=== PATIENT | female | born 1950 | race African-American/Black ===

== ENCOUNTER 2020-03-05 11:07 | Inpatient (IN) | payer OTHER ==
--- NOTE | 2020-03-05 11:50 | PDOC ---
History of Present Illness - General Chief Complaint: Shortness of Breath Stated Complaint: HYPOXIA Time Seen by Provider: 03/05/20 11:45 - History of Present Illness Initial Comments: 03/05/20 11:50 69yo F smoker p/w LLE swelling [id number] and hypoxia at her PCP's office today. Pt reports three weeks ago she noticed that her LLE was swollen and painful when touched. She states the swelling remained unchanged x3wks. She went to her PCP's office today and was found to be hypoxic on room air. The low SpO2 + the LLE swelling prompted the PCP (Timothy Bolivar MD) to send pt to ED after giving 150mg Lovenox + performing a 12 lead. Denies hemoptysis, paresthesia in the leg, denies pallor of the extremity. Denies CP but endorses some SOB. She denies recent travel. She denies a h/o blood clots, recent fevers, sore throat, or cough. NKDA. Meds: albuterol, apixaban, atorvastatin, budesonide-formoterol, lasix, losartan + HCTZ, montelukast No history of this before PMH: COPD, HTN, HLD, PVD. She states two years ago she fell and her left leg "has not been the same." To this she denies any fx or surgery PSH: denies FHx: pt did not remember SHx: 50pack-year smoker. Actively smokes 4-5cigs/day. Denies EtOH or illicit drugs. Sits at home for most of the day. ROS CONSTITUTIONAL: Absent: fever, no chills, no fatigue EYES: Absent: visual changes ENT: Absent: ear pain, no sore throat CARDIOVASCULAR: Absent: chest pain, no palpitations RESPIRATORY: Absent: cough, + SOB GI: Absent: abdominal pain, no nausea, no vomiting, no constipation, no diarrhea GENITOURINARY: Absent: dysuria, no frequency, no hematuria MUSKULOSKELETAL: Absent: back pain, no arthralgia, no myalgia SKIN: Absent: rash NEURO: Absent: headache PE: GENERAL: well-nourished, NAD, A/O x3 HEENT: Normocephalic, atraumatic. PERRL, EOM intact. CARDIOVASCULAR: Normal S1, S2. 2/6 Systolic murmur. Regular rate and rhythm. +1 carotid bruit L>R, +1 JVD b/l 2+ radial pulses b/l unable to palpate dorsalis pedis or posterior tib pulses b/l. PULMONARY: No evidence of respiratory distress. Lungs clear to auscultation bilaterally but sounds are decreased on both sides. No wheezing, rales or rhonchi. ABDOMEN: Soft, non-distended, non-tender. EXTREMITIES: Normal ROM in all four extremities. No gross deformities. +1 pitting edema of lower extremities up to the point of the soleus. Pain to palpation of the LLE around the calf muscle, including the anterior aspect of the LLE. It is not cold. Sensation is intact. Right calf is swollen. SKIN: Warm, dry. No rash. Some discoloration resembling venous stasis below the calves. NEUROLOGICAL: No focal neurological deficits. 69yo F w/ unilateral calf swelling on L + hypoxia at her PCPs office today [facility] for [facility]. Plan: CTA, CMP, CBC, CXR, serial troponin, EKG Admit to Dr. Barnes. During her stay in the ED I found her sleeping in her room. Her SpO2 was 71% with good waveform. We woke her up, put her on 15L O2 NRB and instructed her to breathe. She was A/Ox3 and her O2 increased to 100%. I spoke with Dr. Barnes, who asked me to admit pt to her and give Lasix 20mg IVPush while in the ED. 03/05/20 16:57 03/05/20 17:10 Past History - Medical History Allergies/Adverse Reactions: Allergies Allergy/AdvReac Type Severity Reaction Status Date / Time No Known Drug Allergies Allergy Verified 03/05/20 11:10 TOMATOES Allergy Uncoded 03/05/20 11:10 Home Medications: Ambulatory Orders Albuterol Sulfate Inhaler - [Ventolin HFA Inhaler -] 1 - 2 inh PO PRN 11/29/14 Apixaban [Eliquis -] 5 mg PO BID 03/05/20 Atorvastatin Ca [Lipitor] 80 mg PO HS 03/05/20 Budesonide/Formoterol Fumarate [Budesonide-Formoterol 80-4.5] 2 puff IH BID 03/05/20 Furosemide [Lasix] 20 mg PO DAILY 03/05/20 Losartan/Hydrochlorothiazide [Losartan-Hctz 100-12.5 mg Tab] 1 each PO DAILY 03/05/20 Montelukast Na [Singulair -] 10 mg PO HS 03/05/20 Anemia: No Asthma: Yes Cancer: No Cardiac Disorders: Yes (;ANGIOPLASTY LLE) CVA: No COPD: No CHF: No Dementia: No Diabetes: No GI Disorders: No Disorders: No HTN: Yes Hypercholesterolemia: Yes Liver Disease: No Seizures: No Thyroid Disease: No - Surgical History Appendectomy: Yes Cholecystectomy: No Orthopedic Surgery: Yes (ARTHROSCOPY BILAT KNEE) - Psycho-Social/Smoking History Smoking History: Never smoked Have you smoked in the past 12 months: Yes Number of Cigarettes Smoked Daily: 4 'Breaking Loose' booklet given: 12/01/15 - Substance Abuse Hx (Audit-C & DAST Scrn) How often the patient has a drink containing alcohol: Never Score: In Men: 4 or > Positive; In Women: 3 or > Positive: 0 Screen Result (Pos requires Nsg. Audit-10AR): Negative In the last yr the pt used illegal drug/Rx for NonMed reason: No Score: Yes response is considered Positive: 0 Screen Result (Positive result requires Nsg. DAST-10): Negative *Physical Exam - Vital Signs Last Vital Signs Temp Pulse Resp BP Pulse Ox 81 18 206/73 H 100 03/05/20 11:11 03/05/20 11:11 03/05/20 11:11 03/05/20 11:11 ED Treatment Course - LABORATORY CBC & Chemistry Diagram: 03/05/20 11:50 03/05/20 11:50 Discharge - Discharge Information Problems reviewed: Yes Clinical Impression/Diagnosis: Elevated troponin, Hypoxia Heart failure Qualifiers: Heart failure type: unspecified Heart failure chronicity: unspecified Qualified Code(s): I50.9 - Heart failure, unspecified Condition: Fair - Admission Yes - Follow up/Referral Referrals: Gertrude Gutierrez [Primary Care Provider] - - Patient Discharge Instructions - Post Discharge Activity
[2020-03-05 12:09] LABS: BASO % 0.3 % (0-2.0); EOS % 0.9 % (0-4.5); HEMATOCRIT 40.6 % (32.4-45.2); HEMOGLOBIN 13.2 GM/dL (10.7-15.3); LYMPH % 21.9 % (8-40); MCH 28.1 pg (25.7-33.7); MCHC 32.4 g/dl (32.0-36.0); MEAN CELL VOLUME 86.8 fl (80-96); MEAN PLT VOLUME 6.5 fl (7.5-11.1); MONO % 9.3 % (3.8-10.2); NEUT % 67.6 % (42.8-82.8); PLATELET COUNT 224 K/MM3 (134-434); RBC 4.68 M/mm3 (3.60-5.2); RDW 14.7 % (11.6-15.6); WHITE BLOOD COUNT 8.7 K/mm3 (4.0-10.0)
[2020-03-05 12:43] LABS: ALBUMIN 3.6 g/dl (3.4-5.0); BILIRUBIN,TOTAL 0.6 mg/dL (0.2-1); BLOOD UREA NITROGEN 8.8 mg/dL (7-18); CALCIUM 8.9 mg/dL (8.5-10.1); CREATININE 0.6 mg/dL (0.55-1.3); N-TERMINAL BNP 2985.8 pg/ml (5-125); POTASSIUM 4.2 mmol/L (3.5-5.1); TOT PROT 7.2 g/dl (6.4-8.2)
[2020-03-05] MEDS ORDERED: FUROSEMIDE 40 MG/4 ML INJECTABLE VIAL IVPUSH ONE (16:55)
[2020-03-05 17:00] LABS: N-TERMINAL BNP 2894.1 pg/ml (5-125)
[2020-03-05] MEDS ORDERED: FUROSEMIDE 40 MG/4 ML INJECTABLE VIAL ONE (17:00)
--- NOTE | 2020-03-05 22:53 | HP ---
Admitting History and Physical - Admission History of Present Illness: Pt is a 69 year old female with pmhx of htn, asthma, hld, COPDwho presented with shortness of breath and lower ext edema. She says she had shortness of breath on exertion. She denies chest pain. She was found to be hyponatremia and I was called to evaluate her. She felt better with lasix. She feels her edema and breathing are improving. She is an active smoker. She denies history of ckd. She was also on a thiazide. - Past Medical History Cardiovascular: Yes: HTN, Hyperlipdemia Pulmonary: Yes: Asthma, COPD Heme/Onc: Yes: Other (DVT) - Smoking History Smoking history: Never smoked Have you smoked in the past 12 months: Yes Aproximately how many cigarettes per day: 4 - Alcohol/Substance Use Hx Alcohol Use: Yes (SOCIALLY) Home Medications - Allergies Allergies/Adverse Reactions: Allergies Allergy/AdvReac Type Severity Reaction Status Date / Time No Known Drug Allergies Allergy Verified 03/05/20 11:10 TOMATOES Allergy Uncoded 03/05/20 11:10 - Home Medications Home Medications: Ambulatory Orders Albuterol Sulfate Inhaler - [Ventolin HFA Inhaler -] 1 - 2 inh PO PRN 11/29/14 Apixaban [Eliquis -] 5 mg PO BID 03/05/20 Atorvastatin Ca [Lipitor] 80 mg PO HS 03/05/20 Budesonide/Formoterol Fumarate [Budesonide-Formoterol 80-4.5] 2 puff IH BID 03/05/20 Furosemide [Lasix] 20 mg PO DAILY 03/05/20 Losartan/Hydrochlorothiazide [Losartan-Hctz 100-12.5 mg Tab] 1 each PO DAILY 03/05/20 Montelukast Na [Singulair -] 10 mg PO HS 03/05/20 Family Medical History Family History: Unremarkable Review of Systems - Review of Systems Constitutional: reports: No Symptoms Eyes: reports: No Symptoms HENT: reports: No Symptoms Neck: reports: No Symptoms Cardiovascular: reports: Shortness of Breath Respiratory: reports: SOB Physical Examination Vital Signs: Vital Signs Temperature 98.5 F 03/05/20 15:17 Pulse Rate 87 03/05/20 19:15 Respiratory Rate 24 H 03/05/20 19:15 Blood Pressure 193/54 H 03/05/20 19:15 O2 Sat by Pulse Oximetry (%) 100 03/05/20 19:15 Labs: CBC, BMP 03/05/20 11:50 03/05/20 11:50 Problem List - Problems (1) Hypoxia Assessment/Plan: Cardiac vs pulmonary Check echo Cont IV lasix Code(s): R09.02 - HYPOXEMIA (2) Elevated troponin Assessment/Plan: Cont to trend troponin Check echo Code(s): R79.89 - OTHER SPECIFIED ABNORMAL FINDINGS OF BLOOD CHEMISTRY (3) HTN (hypertension) Code(s): I10 - ESSENTIAL (PRIMARY) HYPERTENSION (4) Hyponatremia Code(s): E87.1 - HYPO-OSMOLALITY AND HYPONATREMIA (5) HLD (hyperlipidemia) Code(s): E78.5 - HYPERLIPIDEMIA, UNSPECIFIED (6) DVT (deep venous thrombosis) Assessment/Plan: ?Will continue Eliquis and check h/o DVT LLE doppler was negative for DVT Code(s): I82.409 - ACUTE EMBOLISM AND THOMBOS UNSP DEEP VN UNSP LOWER EXTREMITY
[2020-03-05] MEDS ORDERED: ALBUTEROL SO4 2.5/IPRATROPIUM 0.5 INH SOL 3 ML VIAL.NEB. NEB PRN (22:54)
[2020-03-05] MEDS ORDERED: amLODIPine BESYLATE 5 MG TABLET (FP) ONE (23:02)
[2020-03-05] MEDS: APIXABAN 5 MG TABLET PO SCH (23:11)
[2020-03-05] MEDS: amLODIPine BESYLATE 5 MG TABLET (FP) PO SCH (23:11)
[2020-03-06 06:37] VITALS: BMI 27.8
--- NOTE | 2020-03-06 06:56 | CONSULT ---
Consult Consult Specialty:: Nephrology Reason for Consultation:: hyponatremia - History of Present Illness Chief Complaint: sent in for shortness of breath History of Present Illness: Pt is a 69 year old female with pmhx of htn, asthma, hld who presented with shortness of breath and lower ext edema. She says she had shortness of breath on exertion. She denies chest pain. She was found to be hyponatremic and I was called to evaluate her. She felt better with lasix. She feels her edema and breathing are improving. She is an active smoker. She denies history of ckd. She was also on a thiazide. - History Source History Provided By: Patient, Medical Record - Past Medical History Cardio/Vascular: Yes: HTN - Alcohol/Substance Use Hx Alcohol Use: Yes (SOCIALLY) - Smoking History Smoking history: Former smoker Have you smoked in the past 12 months: Yes Aproximately how many cigarettes per day: 4 Home Medications - Allergies Allergies/Adverse Reactions: Allergies Allergy/AdvReac Type Severity Reaction Status Date / Time No Known Drug Allergies Allergy Verified 03/05/20 11:10 TOMATOES Allergy Uncoded 03/05/20 11:10 - Home Medications Home Medications: Ambulatory Orders Albuterol Sulfate Inhaler - [Ventolin HFA Inhaler -] 1 - 2 inh PO PRN 11/29/14 Apixaban [Eliquis -] 5 mg PO BID 03/05/20 Atorvastatin Ca [Lipitor] 80 mg PO HS 03/05/20 Budesonide/Formoterol Fumarate [Budesonide-Formoterol 80-4.5] 2 puff IH BID 03/05/20 Furosemide [Lasix] 20 mg PO DAILY 03/05/20 Losartan/Hydrochlorothiazide [Losartan-Hctz 100-12.5 mg Tab] 1 each PO DAILY 03/05/20 Montelukast Na [Singulair -] 10 mg PO HS 03/05/20 Family Medical History Family History: Denies Review of Systems - Review of Systems Constitutional: reports: Malaise Eyes: reports: No Symptoms HENT: reports: No Symptoms Neck: reports: No Symptoms Cardiovascular: reports: Edema, Shortness of Breath Respiratory: reports: No Symptoms Gastrointestinal: reports: No Symptoms Genitourinary: reports: No Symptoms Musculoskeletal: reports: No Symptoms Integumentary: reports: No Symptoms Neurological: reports: No Symptoms Endocrine: reports: No Symptoms Hematology/Lymphatic: reports: No Symptoms Psychiatric: reports: No Symptoms Physical Exam Vital Signs: Vital Signs Temperature 97.9 F 03/06/20 06:25 Pulse Rate 75 03/06/20 06:41 Respiratory Rate 18 03/06/20 06:25 Blood Pressure 159/57 L 03/06/20 06:25 O2 Sat by Pulse Oximetry (%) 97 03/06/20 06:25 Constitutional: Yes: Calm Eyes: Yes: Conjunctiva Clear HENT: Yes: Atraumatic Neck: Yes: Supple Cardiovascular: Yes: S1, S2 Respiratory: Yes: On Nasal O2 Gastrointestinal: Yes: Soft Renal/: Yes: WNL Musculoskeletal: Yes: WNL Edema: Yes Edema: LLE: 1+, RLE: 1+ Neurological: Yes: Oriented Psychiatric: Yes: Oriented Imaging - Results Chest X-ray: Report Reviewed Cat Scan: Report Reviewed Problem List - Problems (1) Hyponatremia Code(s): E87.1 - HYPO-OSMOLALITY AND HYPONATREMIA (2) Heart failure Code(s): I50.9 - HEART FAILURE, UNSPECIFIED Qualifiers: Heart failure type: unspecified Heart failure chronicity: unspecified Qualified Code(s): I50.9 - Heart failure, unspecified Assessment/Plan Current Medications Generic Name Dose Route Start Last Admin Trade Name Freq PRN Reason Stop Dose Admin Albuterol/Ipratropium 1 amp 03/05/20 22:54 Duoneb - NEB Q6H PRN SHORTNESS OF BREATH Amlodipine Besylate 5 mg 03/05/20 22:53 03/05/20 23:11 Norvasc - PO 5 mg DAILY RODGER Administration Apixaban 5 mg 03/05/20 22:45 03/05/20 23:11 Eliquis - PO 5 mg BID RODGER Administration Atorvastatin Calcium 80 mg 03/06/20 22:00 Lipitor - PO HS RODGER Budesonide/Formoterol Fumarate 2 puff 03/06/20 10:00 Symbicort 80/4.5mcg - IH BID RODGER Furosemide 40 mg 03/06/20 10:00 Lasix Injection - IVPUSH DAILY RODGER Montelukast Sodium 10 mg 03/06/20 22:00 Singulair - PO HS RODGER Impression 1. hyponatremia 2. chf 3. asthma 4. htn 5. smoker 6. hld Plan - cont lasix - hypervolemic hyponatremia - restrict free water - do not restart thiazide - cont to monitor lytes - check plasma and urine osm, check urine sodium - hyponatremia likely a combination of thiazide and chf
[2020-03-06 07:07] LABS: BASO % 0.8 % (0-2.0); EOS % 1.3 % (0-4.5); HEMATOCRIT 40.2 % (32.4-45.2); LYMPH % 23.8 % (8-40); MCH 28.1 pg (25.7-33.7); MCHC 32.3 g/dl (32.0-36.0); MEAN CELL VOLUME 87.1 fl (80-96); MEAN PLT VOLUME 6.8 fl (7.5-11.1); MONO % 10.3 % (3.8-10.2); NEUT % 63.8 % (42.8-82.8); PLATELET COUNT 202 K/MM3 (134-434); RBC 4.62 M/mm3 (3.60-5.2)
--- NOTE | 2020-03-06 07:16 | CON.CARD ---
Consult Consult Specialty:: Cardiology - History of Present Illness History of Present Illness: The patient is a 69 year old female with a significant past medical history of asthma, LLE angioplasty, HTN, HLD who presents to the ED for evaluation of hypoxia that began today. She was sent from her PCPs office who discovered the hypoxia when she was in the office for left lower extremity edema that began three weeks ago. Her O2 sat was reportedly 80%. Her PCP administered 150mg of Lovenox, performed and EKG and sent the pt to the ED. The patient denies fever, chills, sob, CP. She denies dizziness, headache, focal weakness/numbness, abd pain, urinary sxs. Surgical Hx: appendectomy, bilateral knee arthroscopy Social Hx: Patient reports smoking 4-5 cigarettes per day for 50 years. Allergies: NKDA, tomatoes PCP: Timothy Bolivar - History Source History Provided By: Medical Record - Alcohol/Substance Use Hx Alcohol Use: Yes (SOCIALLY) - Smoking History Smoking history: Former smoker Have you smoked in the past 12 months: Yes Aproximately how many cigarettes per day: 4 Home Medications - Allergies Allergies/Adverse Reactions: Allergies Allergy/AdvReac Type Severity Reaction Status Date / Time No Known Drug Allergies Allergy Verified 03/05/20 11:10 TOMATOES Allergy Uncoded 03/05/20 11:10 - Home Medications Home Medications: Ambulatory Orders Albuterol Sulfate Inhaler - [Ventolin HFA Inhaler -] 1 - 2 inh PO PRN 11/29/14 Apixaban [Eliquis -] 5 mg PO BID 03/05/20 Atorvastatin Ca [Lipitor] 80 mg PO HS 03/05/20 Budesonide/Formoterol Fumarate [Budesonide-Formoterol 80-4.5] 2 puff IH BID 03/05/20 Furosemide [Lasix] 20 mg PO DAILY 03/05/20 Montelukast Na [Singulair -] 10 mg PO HS 03/05/20 Amlodipine Besylate [Norvasc -] 10 mg PO DAILY #30 tablet 03/13/20 Docusate Sodium [Colace -] 100 mg PO TID #90 capsule 03/13/20 Nicotine Patch [Nicoderm Patch -] 14 mg TD DAILY #30 patch 03/13/20 Valsartan [Diovan] 80 mg PO DAILY #30 tablet 03/13/20 Review of Systems - Review of Systems Constitutional: reports: No Symptoms Eyes: reports: No Symptoms HENT: reports: No Symptoms Neck: reports: No Symptoms Cardiovascular: reports: Shortness of Breath Respiratory: reports: SOB Gastrointestinal: reports: No Symptoms Genitourinary: reports: No Symptoms Breasts: reports: No Symptoms Reported Musculoskeletal: reports: No Symptoms Integumentary: reports: No Symptoms Neurological: reports: No Symptoms Endocrine: reports: No Symptoms Hematology/Lymphatic: reports: No Symptoms Psychiatric: reports: No Symptoms Vital Signs: Vital Signs Temperature 97.9 F 03/06/20 06:25 Pulse Rate 75 03/06/20 06:41 Respiratory Rate 18 03/06/20 06:25 Blood Pressure 159/57 L 03/06/20 06:25 O2 Sat by Pulse Oximetry (%) 97 03/06/20 06:25 Constitutional: Yes: Well Nourished, No Distress, Calm Eyes: Yes: WNL, Conjunctiva Clear, EOM Intact HENT: Yes: WNL, Atraumatic, Normocephalic Neck: Yes: WNL, Supple, Trachea Midline Respiratory: Yes: WNL, Regular, CTA Bilaterally Gastrointestinal: Yes: WNL, Normal Bowel Sounds Renal/: Yes: WNL Cardiovascular: Yes: WNL, Regular Rate and Rhythm Musculoskeletal: Yes: WNL Extremities: Yes: WNL Integumentary: Yes: WNL Neurological: Yes: WNL, Alert, Oriented ...Motor Strength: WNL Psychiatric: Yes: WNL, Alert, Oriented - Other Data Labs, Other Data: CBC, BMP 03/06/20 05:46 Troponin, BNP 03/05/20 03/05/20 03/06/20 11:50 15:21 00:48 Troponin I 0.12 H 0.12 H 0.15 H B-Natriuretic Peptide 2985.8 H 2894.1 H Troponin, BNP 03/05/20 03/05/20 03/06/20 11:50 15:21 00:48 Troponin I 0.12 H 0.12 H 0.15 H B-Natriuretic Peptide 2985.8 H 2894.1 H Problem List - Problems (1) Elevated troponin Code(s): R79.89 - OTHER SPECIFIED ABNORMAL FINDINGS OF BLOOD CHEMISTRY (2) Heart failure Code(s): I50.9 - HEART FAILURE, UNSPECIFIED Qualifiers: Heart failure type: unspecified Heart failure chronicity: unspecified Qualified Code(s): I50.9 - Heart failure, unspecified (3) Hypoxia Code(s): R09.02 - HYPOXEMIA Assessment/Plan The patient is a 69 year old female with a significant past medical history of asthma, LLE angioplasty, HTN, HLD who presents to the ED for evaluation of hypoxia that began today. She was sent from her PCPs office who discovered the hypoxia when she was in the office for left lower extremity edema that began three weeks ago. Hyponatremia CHF positive TNis CTA neg for PE PAD CAD Dobutamine MIBI ST 2014 mild IW ischemia TID 1.3 Plan Lasix cont AC ECHO Will need cardiac cath/ ischemic w/u when stable CC time spent 70 min
[2020-03-06 07:40] LABS: ALBUMIN 3.3 g/dl (3.4-5.0); BILIRUBIN,TOTAL 0.6 mg/dL (0.2-1); BLOOD UREA NITROGEN 8.8 mg/dL (7-18); CALCIUM 8.5 mg/dL (8.5-10.1); CREATININE 0.7 mg/dL (0.55-1.3); POTASSIUM 3.9 mmol/L (3.5-5.1); TOT PROT 6.5 g/dl (6.4-8.2)
[2020-03-06] MEDS: amLODIPine BESYLATE 5 MG TABLET (FP) PO SCH (10:08)
[2020-03-06] MEDS: FUROSEMIDE 40 MG/4 ML INJECTABLE VIAL IVPUSH SCH (10:08)
[2020-03-06] MEDS: APIXABAN 5 MG TABLET PO SCH ×2 (10:08→21:51)
--- NOTE | 2020-03-06 11:40 | CON.PULM ---
Consult Consult Specialty:: PULMONARY Referred by:: Dr Barnes Reason for Consultation:: hypoxia - History of Present Illness Chief Complaint: leg swelling History of Present Illness: 69yo female with h/o HTN, hyperlipidemia, asthma, smoker who was sent from her PMD for shortness of breath and LLE swelling. She states that her experiencing dyspnea on exertion for years. No chest pain or discomfort. No cough but has been experiencing more wheezing while in the hospital. No fevers, chills or sweats. Noted to be hypoxic to 80%. Not on home O2. She is a long time smoker, started smoking at age 18, smoked as much as 6-7 PPD now down to 5-6 cigarettes/day. She does report 4 pillow orthopnea but denies PND. - History Source History Provided By: Patient, Caregiver Limitations to Obtaining History: No Limitations - Past Medical History Cardio/Vascular: Yes: HTN, Hyperlipdemia Pulmonary: Yes: Asthma - Alcohol/Substance Use Hx Alcohol Use: Yes (SOCIALLY) - Smoking History Smoking history: Former smoker Have you smoked in the past 12 months: Yes Aproximately how many cigarettes per day: 4 Home Medications - Allergies Allergies/Adverse Reactions: Allergies Allergy/AdvReac Type Severity Reaction Status Date / Time No Known Drug Allergies Allergy Verified 03/05/20 11:10 TOMATOES Allergy Uncoded 03/05/20 11:10 - Home Medications Home Medications: Ambulatory Orders Albuterol Sulfate Inhaler - [Ventolin HFA Inhaler -] 1 - 2 inh PO PRN 11/29/14 Apixaban [Eliquis -] 5 mg PO BID 03/05/20 Atorvastatin Ca [Lipitor] 80 mg PO HS 03/05/20 Budesonide/Formoterol Fumarate [Budesonide-Formoterol 80-4.5] 2 puff IH BID 03/05/20 Furosemide [Lasix] 20 mg PO DAILY 03/05/20 Losartan/Hydrochlorothiazide [Losartan-Hctz 100-12.5 mg Tab] 1 each PO DAILY Montelukast Na [Singulair -] 10 mg PO HS 03/05/20 Review of Systems - Review of Systems Constitutional: reports: Weakness. denies: Chills, Fever Eyes: denies: Recent Change in Vision HENT: denies: Nasal Congestion, Throat Pain Neck: denies: Stiffness, Tenderness Cardiovascular: reports: Edema, Shortness of Breath. denies: Chest Pain, Palpitations Respiratory: reports: Orthopnea, SOB on Exertion. denies: Cough, Hemoptysis, PND, Wheezing Gastrointestinal: denies: Abdominal Pain, Nausea, Vomiting Genitourinary: denies: Dysuria, Hematuria Neurological: denies: Dizziness, Headache Endocrine: denies: Unexplained Weight Loss Physical Exam Vital Sings: Vital Signs Temperature 98.0 F 03/06/20 10:00 Pulse Rate 79 03/06/20 10:00 Respiratory Rate 23 H 03/06/20 10:00 Blood Pressure 177/63 H 03/06/20 10:00 O2 Sat by Pulse Oximetry (%) 92 L 03/06/20 10:00 Constitutional: Yes: Calm Eyes: Yes: Conjunctiva Clear, EOM Intact HENT: Yes: Atraumatic, Normocephalic Neck: Yes: Supple, Trachea Midline Cardiovascular: Yes: Regular Rate and Rhythm Respiratory: Yes: Rales ...Clubbing: No Gastrointestinal: Yes: Normal Bowel Sounds, Soft. No: Tenderness Edema: Yes Labs: CBC, BMP 03/06/20 05:46 03/06/20 05:46 Imaging - Results Chest X-ray: Report Reviewed, Image Reviewed (cardiomegaly) Assessment/Plan Suspect CHF Exacerbation +Troponins likely Demand Ischemia Hyponatremia HTN Hyperlipidemia PAD Asthma/Likely COPD Smoker - IV lasix - monitor urine output, creatinine - daily weights - echocardiogram - monitor lytes with diuresis - O2 to keep Spo2 >90%, when ready for discharge will need to check ambulatory spO2 on room air to assess for home O2 - inhaled bronchodilators - smoking cessation discussed - DVT prophylaxis Thank you for this consult Nehemiah Willoughby MD
[2020-03-06] MEDS: BUDESONIDE/FORMETEROL FUMARATE 80/4.5 mcg INHALER IH SCH ×2 (11:48→21:51)
--- NOTE | 2020-03-06 12:06 | EKG ---
Test Reason : Blood Pressure : / mmHG Vent. Rate : 088 BPM Atrial Rate : 088 BPM P-R Int : 210 ms QRS Dur : 090 ms QT Int : 398 ms P-R-T Axes : 059 -26 070 degrees QTc Int : 481 ms SINUS RHYTHM WITH 1ST DEGREE A-V BLOCK POSSIBLE LEFT ATRIAL ENLARGEMENT ANTERIOR INFARCT , AGE UNDETERMINED ABNORMAL ECG WHEN COMPARED WITH ECG OF 28-DEC-2014 09:26, QRS AXIS SHIFTED LEFT Confirmed by David Sinclair MD ([id number]) on 03/06/2020 12:06:00 PM Referred By: Confirmed By:David Sinclair MD
--- NOTE | 2020-03-06 12:06 | EKG ---
Test Reason : Blood Pressure : / mmHG Vent. Rate : 081 BPM Atrial Rate : 081 BPM P-R Int : 204 ms QRS Dur : 094 ms QT Int : 420 ms P-R-T Axes : 059 012 061 degrees QTc Int : 487 ms NORMAL SINUS RHYTHM WITH SINUS ARRHYTHMIA LEFT ATRIAL ENLARGEMENT CANNOT RULE OUT INFERIOR INFARCT , AGE UNDETERMINED ABNORMAL ECG WHEN COMPARED WITH ECG OF 05-MAR-2020 11:24, MINIMAL CRITERIA FOR INFERIOR INFARCT ARE NOW PRESENT Confirmed by David Sinclair MD ([id number]) on 03/06/2020 12:05:46 PM Referred By: Confirmed By:David Sinclair MD
--- NOTE | 2020-03-06 12:53 | PN ---
Progress Note, Physician Chief Complaint: Pt A&ox3; denies chest pain or dyspnea. History of Present Illness: Ms. Aguirre is a 69yo black woman, smoker, who presents with LLE swelling x3 weeks and hypoxia at her PCP's office today. Pt reports three weeks ago she noticed that her LLE was swollen and painful when touched. She states the swelling remained unchanged x 3wks. She went to her PCP's office today and was found to be hypoxic on room air. The low SpO2 + the LLE swelling prompted the PCP (Timothy Bolivar MD) to send pt to ED after giving 150mg Lovenox + performing a 12 lead. Denies hemoptysis, paresthesia in the leg, denies pallor of the extremity. Denies CP but endorses some SOB. She denies recent travel. She denies a h/o blood clots, recent fevers, sore throat, or cough. NKDA. Meds: albuterol, apixaban, atorvastatin, budesonide-formoterol, lasix, losartan + HCTZ, montelukast No history of this before PMH: COPD, HTN, HLD, PVD. She states two years ago she fell; she spent 8 months in 3 different hospitals, and her left leg "has not been the same." To this she denies any fx or surgery - Current Medication List Current Medications: Active Medications Albuterol/Ipratropium (Duoneb -) 1 amp NEB Q6H PRN PRN Reason: SHORTNESS OF BREATH Amlodipine Besylate (Norvasc -) 5 mg PO DAILY [facility] Last Admin: 03/06/20 10:08 Dose: 5 mg Documented by: Apixaban (Eliquis -) 5 mg PO BID [facility] Last Admin: 03/06/20 10:08 Dose: 5 mg Documented by: Atorvastatin Calcium (Lipitor -) 80 mg PO [facility] Budesonide/Formoterol Fumarate (Symbicort 80/4.5mcg -) 2 puff IH BID [facility] Last Admin: 03/06/20 11:48 Dose: 2 puff Documented by: Furosemide (Lasix Injection -) 40 mg IVPUSH DAILY [facility] Last Admin: 03/06/20 10:08 Dose: 40 mg Documented by: Montelukast Sodium (Singulair -) 10 mg PO HS [facility] - Objective Vital Signs: Vital Signs Temperature 98.0 F 03/06/20 10:00 Pulse Rate 79 03/06/20 10:00 Respiratory Rate 23 H 03/06/20 10:00 Blood Pressure 177/63 H 03/06/20 10:00 O2 Sat by Pulse Oximetry (%) 92 L 03/06/20 10:00 Constitutional: Yes: Calm Eyes: Yes: WNL Cardiovascular: Yes: S1, S2, S4 Respiratory: Yes: Diminished Gastrointestinal: Yes: Soft ...Rectal Exam: Yes: Deferred Genitourinary: No: Anuria Breast(s): Yes: WNL Musculoskeletal: Yes: Muscle Weakness Extremities: Yes: WNL Edema: No Peripheral Pulses WNL: Yes Integumentary: Yes: WNL Neurological: Yes: Alert, Oriented, Weakness Psychiatric: Yes: WNL Labs: CBC, BMP 03/06/20 05:46 03/06/20 05:46 Abnormal Lab Results 03/08/20 03/08/20 03/08/20 05:50 05:50 12:05 MPV 6.6 L Monocytes % 10.7 H Sodium 130 L Chloride 86 L Carbon Dioxide 39 H Anion Gap 5 L AST 14 L CK-MB (CK-2) 4.9 H Troponin I 0.11 H 0.10 H Albumin 3.2 L - ....Imaging Chest X-ray: Image Reviewed Cat Scan: Image Reviewed EKG: Image Reviewed Assessment/Plan COPD; multiple lung nodules Long-term cigarette smoker. Acute/chronic CHF (pt gives hx of "weak heart"); ?old anterior infarct by EKG. HTN HLD EKG: NSR; ?anterior infarct vs precordial lead misplacement; f/u repeat elevated TNI: likely demand ischemia Plan: ECHO for LVEF Obtain prior medical records. Nicotine patch (pt agrees). Workup of lung findings; r/o malignancy. lipid profile (on atorvastatin). Elevated TNI likely demand ischemia; pt does have multiple CAD risks, and will benefit from Stress MIBI when stable. CC time spent: 35 minutes.
--- NOTE | 2020-03-06 14:29 | ECHO ---
Version: 1 Name: ODALIS SANCHEZ Exam: Adult Echocardiogram Study Date: 03/06/2020, 1:22 PM Age: 69 Years MMode/2D Measurements & Calculations IVSd: 1.19 cm LVIDs: 3.2 cm LVIDd: 4.8 cm LVPWd: 1.18 cm ACS: 2.13 cm Ao root diam: 3.4 cm LVOT diam: 1.99 cm LA dimension: 3.3 cm Doppler Measurements & Calculations MV E max liam: 84.5 cm/sec Med E/e': 20.6 MV A max liam: 144.4 cm/sec Med Peak E' Liam: 4.1 cm/sec MV E/A: 0.59 Lat E/e': 17.7 Lat Peak E' Liam: 4.8 cm/sec Ao max P.4 mmHg LAMONT(I,D): 2.33 cm Ao mean P.2 mmHg LV V1 mean: 94.6 cm/sec Ao V2 max: 216.5 cm/sec LV V1 mean P.2 mmHg AI P1/2t: 374.4 msec TR max liam: 249.4 cm/sec TR max P.0 mmHg Procedure A two-dimensional transthoracic echocardiogram with color flow and Doppler was performed. The study was technically difficult with many images being suboptimal in quality. The patient was in normal sinus rhythm during the exam. Left Ventricle The left ventricular ejection fraction is normal. Ejection Fraction = 60%. E/A reversal consistent w ith but not diagnostic of poor LV compliance. Right Ventricle The right ventricle is normal size. The right ventricular systolic function is normal. Atria Normal left and right atrial size and function. Mitral Valve There is moderate mitral valve thickening. There is moderate mitral annular calcification. There is no mitral regurgitation noted. Tricuspid Valve The tricuspid valve is normal. No tricuspid regurgitation. Right ventricular systolic pressure is no rmal. Aortic Valve Fibrocalcific aortic valve without significant stenosis. Mild to moderate aortic regurgitation. Pulmonic Valve The pulmonic valve is not well seen, but is grossly normal. Trace pulmonic valvular regurgitation. Great Vessels The aortic root is normal size. Normal aortic arch, descending and ascending aorta. Pericardium/Pleura There is no pericardial effusion. Tech Comments TDS. Patient scanned sitting up. Summary Statements The study was technically difficult with many images being suboptimal in quality. The left ventricular ejection fraction is normal. E/A reversal consistent with but not diagnostic of poor LV compliance The right ventricular systolic function is normal. There is moderate mitral valve thickening. There is moderate mitral annular calcification. Fibrocalcific aortic valve without significant stenosis. Mild to moderate aortic regurgitation. Trace pulmonic valvular regurgitation. There is no pericardial effusion. MD Cyrus Dawn 03/06/2020, 2:28 PM Ordering Physician: Leeanna Barnes Referring Physician: LEEANNA BARNES Performed By: Loren Bal
[2020-03-06] MEDS ORDERED: PT OWN MED DRAWER 7, Y5N ONE ×2 (14:34→20:51)
[2020-03-06] MEDS: NICOTINE 14 MG/24 HOURS TOPICAL PATCH TD SCH (14:56)
--- NOTE | 2020-03-06 21:23 | PN ---
Progress Note, Physician History of Present Illness: Pt complains of BROWN - Current Medication List Current Medications: Active Medications Albuterol/Ipratropium (Duoneb -) 1 amp NEB Q6H PRN PRN Reason: SHORTNESS OF BREATH Amlodipine Besylate (Norvasc -) 5 mg PO DAILY [facility] Last Admin: 03/06/20 10:08 Dose: 5 mg Documented by: Apixaban (Eliquis -) 5 mg PO BID [facility] Last Admin: 03/06/20 10:08 Dose: 5 mg Documented by: Atorvastatin Calcium (Lipitor -) 80 mg PO HS [facility] Budesonide/Formoterol Fumarate (Symbicort 80/4.5mcg -) 2 puff IH BID [facility] Last Admin: 03/06/20 11:48 Dose: 2 puff Documented by: Furosemide (Lasix Injection -) 40 mg IVPUSH DAILY [facility] Last Admin: 03/06/20 10:08 Dose: 40 mg Documented by: Montelukast Sodium (Singulair -) 10 mg PO [facility] Nicotine (Nicoderm Patch -) 14 mg TD DAILY [facility] Last Admin: 03/06/20 14:56 Dose: 14 mg Documented by: - Objective Vital Signs: Vital Signs Temperature 98.4 F 03/06/20 20:45 Pulse Rate 77 03/06/20 20:45 Respiratory Rate 22 H 03/06/20 20:45 Blood Pressure 131/56 L 03/06/20 20:45 O2 Sat by Pulse Oximetry (%) 97 03/06/20 20:45 Cardiovascular: Yes: WNL, Regular Rate and Rhythm Respiratory: Yes: Diminished Gastrointestinal: Yes: WNL, Normal Bowel Sounds, Soft Edema: Yes Labs: CBC, BMP 03/06/20 05:46 03/06/20 05:46 Problem List - Problems (1) CHF (congestive heart failure) Assessment/Plan: Cont IV lasix Monitor electrolytes Code(s): I50.9 - HEART FAILURE, UNSPECIFIED (2) Elevated troponin Assessment/Plan: Due to demand ischemia Code(s): R79.89 - OTHER SPECIFIED ABNORMAL FINDINGS OF BLOOD CHEMISTRY (3) Hypoxia Assessment/Plan: Due to CHF Code(s): R09.02 - HYPOXEMIA (4) DVT (deep venous thrombosis) Assessment/Plan: ?Will continue Eliquis and check h/o DVT LLE doppler was negative for DVT Code(s): I82.409 - ACUTE EMBOLISM AND THOMBOS UNSP DEEP VN UNSP LOWER EXTREMITY (5) HLD (hyperlipidemia) Code(s): E78.5 - HYPERLIPIDEMIA, UNSPECIFIED (6) HTN (hypertension) Code(s): I10 - ESSENTIAL (PRIMARY) HYPERTENSION (7) Hyponatremia Code(s): E87.1 - HYPO-OSMOLALITY AND HYPONATREMIA
[2020-03-06] MEDS: MONTELUKAST NA 10 MG TABLET PO SCH (21:51)
[2020-03-06] MEDS: ATORVASTATIN CA 80 MG TABLET (FP) PO SCH (21:51)
[2020-03-07] MEDS ORDERED: PT OWN MED DRAWER 7, Y5N ONE (10:04)
[2020-03-07] MEDS: APIXABAN 5 MG TABLET PO SCH ×2 (10:50→22:38)
[2020-03-07] MEDS: NICOTINE 14 MG/24 HOURS TOPICAL PATCH TD SCH (10:51)
[2020-03-07] MEDS: amLODIPine BESYLATE 5 MG TABLET (FP) PO SCH (10:52)
[2020-03-07] MEDS: FUROSEMIDE 40 MG/4 ML INJECTABLE VIAL IVPUSH SCH (10:54)
--- NOTE | 2020-03-07 12:27 | PN ---
Progress Note (short form) - Note Progress Note: PULMONARY States breathing is improving. +nonproductive cough. States leg swelling is improving. Vital Signs Period Temp Pulse Resp BP Sys/[place] Pulse Ox Last 24 Hr 98.0 F-98.4 F 72-83 19-24 120-184/43-98 92-99 Gen: NAD at rest Heart: RRR Lung: decreased breath sounds at the bases Abd: soft, nontender Ext: less edema CBC, BMP 03/06/20 05:46 03/06/20 05:46 Active Medications Albuterol/Ipratropium (Duoneb -) 1 amp NEB Q6H PRN PRN Reason: SHORTNESS OF BREATH Amlodipine Besylate (Norvasc -) 5 mg PO DAILY [facility] Last Admin: 03/07/20 10:52 Dose: 5 mg Documented by: Apixaban (Eliquis -) 5 mg PO BID [facility] Last Admin: 03/07/20 10:50 Dose: 5 mg Documented by: Atorvastatin Calcium (Lipitor -) 80 mg PO [facility] Last Admin: 03/06/20 21:51 Dose: 80 mg Documented by: Budesonide/Formoterol Fumarate (Symbicort 80/4.5mcg -) 2 puff IH BID [facility] Last Admin: 03/07/20 10:52 Dose: 2 puff Documented by: Furosemide (Lasix Injection -) 40 mg IVPUSH DAILY [facility] Last Admin: 03/07/20 10:54 Dose: 40 mg Documented by: Montelukast Sodium (Singulair -) 10 mg PO HS [facility] Last Admin: 03/06/20 21:51 Dose: 10 mg Documented by: Nicotine (Nicoderm Patch -) 14 mg TD DAILY [facility] Last Admin: 03/07/20 10:51 Dose: 14 mg Documented by: A/P Acute on Chronic Diastolic Heart Failure +Troponins likely Demand Ischemia Hyponatremia HTN Hyperlipidemia PAD Asthma/Likely COPD Smoker - continue lasix - monitor urine output, creatinine - daily weights - monitor lytes with diuresis - O2 to keep Spo2 >90%, when ready for discharge will need to check ambulatory spO2 on room air to assess for home O2 - inhaled bronchodilators - smoking cessation discussed - DVT prophylaxis
--- NOTE | 2020-03-07 12:31 | PN ---
Progress Note, Physician History of Present Illness: The patient is a 69 year old female with a significant past medical history of asthma, LLE angioplasty, HTN, HLD who presents to the ED for evaluation of hypoxia that began today. She was sent from her PCPs office who discovered the hypoxia when she was in the office for left lower extremity edema that began three weeks ago. Her O2 sat was reportedly 80%. Her PCP administered 150mg of Lovenox, performed and EKG and sent the pt to the ED. The patient denies fever, chills, sob, CP. She denies dizziness, headache, focal weakness/numbness, abd pain, urinary sxs. Surgical Hx: appendectomy, bilateral knee arthroscopy Social Hx: Patient reports smoking 4-5 cigarettes per day for 50 years. Allergies: NKDA, tomatoes PCP: Timothy Bolivar - Current Medication List Current Medications: Active Medications Albuterol/Ipratropium (Duoneb -) 1 amp NEB Q6H PRN PRN Reason: SHORTNESS OF BREATH Amlodipine Besylate (Norvasc -) 5 mg PO DAILY [facility] Last Admin: 03/07/20 10:52 Dose: 5 mg Documented by: Apixaban (Eliquis -) 5 mg PO BID [facility] Last Admin: 03/07/20 10:50 Dose: 5 mg Documented by: Atorvastatin Calcium (Lipitor -) 80 mg PO HS [facility] Last Admin: 03/06/20 21:51 Dose: 80 mg Documented by: Budesonide/Formoterol Fumarate (Symbicort 80/4.5mcg -) 2 puff IH BID [facility] Last Admin: 03/07/20 10:52 Dose: 2 puff Documented by: Furosemide (Lasix Injection -) 40 mg IVPUSH DAILY [facility] Last Admin: 03/07/20 10:54 Dose: 40 mg Documented by: Montelukast Sodium (Singulair -) 10 mg PO HS [facility] Last Admin: 03/06/20 21:51 Dose: 10 mg Documented by: Nicotine (Nicoderm Patch -) 14 mg TD DAILY [facility] Last Admin: 03/07/20 10:51 Dose: 14 mg Documented by: - Objective Vital Signs: Vital Signs Temperature 98.1 F 03/07/20 06:00 Pulse Rate 81 03/07/20 06:00 Respiratory Rate 21 H 03/07/20 06:00 Blood Pressure 184/54 H 03/07/20 06:00 O2 Sat by Pulse Oximetry (%) 97 03/07/20 09:00 Eyes: Yes: WNL, Conjunctiva Clear, EOM Intact HENT: Yes: WNL, Atraumatic, Normocephalic Neck: Yes: WNL, Supple, Trachea Midline Cardiovascular: Yes: WNL, Regular Rate and Rhythm Respiratory: Yes: WNL, Regular, CTA Bilaterally Gastrointestinal: Yes: WNL, Normal Bowel Sounds Genitourinary: Yes: WNL Musculoskeletal: Yes: WNL Extremities: Yes: WNL Edema: No Integumentary: Yes: WNL Neurological: Yes: WNL, Alert, Oriented ...Motor Strength: WNL Psychiatric: Yes: WNL Labs: CBC, BMP 03/06/20 05:46 03/06/20 05:46 Problem List - Problems (1) Elevated troponin Code(s): R79.89 - OTHER SPECIFIED ABNORMAL FINDINGS OF BLOOD CHEMISTRY (2) Heart failure Code(s): I50.9 - HEART FAILURE, UNSPECIFIED Qualifiers: Heart failure type: unspecified Heart failure chronicity: unspecified Qualified Code(s): I50.9 - Heart failure, unspecified (3) Hypoxia Code(s): R09.02 - HYPOXEMIA Assessment/Plan COPD; multiple lung nodules Long-term cigarette smoker. Acute/chronic CHF (pt gives hx of "weak heart"); ?old anterior infarct by EKG. HTN HLD elevated TNI Plan: ECHO for LVEF Obtain prior medical records. Nicotine patch (pt agrees). Workup of lung findings; r/o malignancy. lipid profile (on atorvastatin). Stress MIBI when stable. CC time spent 36 min
[2020-03-07] MEDS: BUDESONIDE/FORMETEROL FUMARATE 80/4.5 mcg INHALER IH SCH ×2 (12:37→22:39)
--- NOTE | 2020-03-07 13:34 | PN ---
Progress Note, Physician History of Present Illness: Pt seen and examined at bedside. She is awake and alert. She denies shortness of breath. - Current Medication List Current Medications: Active Medications Albuterol/Ipratropium (Duoneb -) 1 amp NEB Q6H PRN PRN Reason: SHORTNESS OF BREATH Amlodipine Besylate (Norvasc -) 5 mg PO DAILY [facility] Last Admin: 03/07/20 10:52 Dose: 5 mg Documented by: Apixaban (Eliquis -) 5 mg PO BID [facility] Last Admin: 03/07/20 10:50 Dose: 5 mg Documented by: Atorvastatin Calcium (Lipitor -) 80 mg PO HS [facility] Last Admin: 03/06/20 21:51 Dose: 80 mg Documented by: Budesonide/Formoterol Fumarate (Symbicort 80/4.5mcg -) 2 puff IH BID [facility] Last Admin: 03/07/20 12:37 Dose: 2 puff Documented by: Furosemide (Lasix Injection -) 40 mg IVPUSH DAILY [facility] Last Admin: 03/07/20 10:54 Dose: 40 mg Documented by: Montelukast Sodium (Singulair -) 10 mg PO HS [facility] Last Admin: 03/06/20 21:51 Dose: 10 mg Documented by: Nicotine (Nicoderm Patch -) 14 mg TD DAILY [facility] Last Admin: 03/07/20 10:51 Dose: 14 mg Documented by: - Objective Vital Signs: Vital Signs Temperature 98.1 F 03/07/20 06:00 Pulse Rate 81 03/07/20 06:00 Respiratory Rate 21 H 03/07/20 06:00 Blood Pressure 184/54 H 03/07/20 06:00 O2 Sat by Pulse Oximetry (%) 97 03/07/20 09:00 Constitutional: Yes: Calm Eyes: Yes: Conjunctiva Clear HENT: Yes: Atraumatic Cardiovascular: Yes: S1, S2 Respiratory: Yes: CTA Bilaterally Gastrointestinal: Yes: Soft Genitourinary: Yes: WNL Musculoskeletal: Yes: WNL Edema: No Integumentary: Yes: WNL Neurological: Yes: Oriented Psychiatric: Yes: Oriented Labs: CBC, BMP 03/06/20 05:46 03/06/20 05:46 Problem List - Problems (1) Hyponatremia Code(s): E87.1 - HYPO-OSMOLALITY AND HYPONATREMIA (2) Heart failure Code(s): I50.9 - HEART FAILURE, UNSPECIFIED Qualifiers: Heart failure type: unspecified Heart failure chronicity: unspecified Qualified Code(s): I50.9 - Heart failure, unspecified Assessment/Plan Current Medications Generic Name Dose Route Start Last Admin Trade Name Freq PRN Reason Stop Dose Admin Albuterol/Ipratropium 1 amp 03/05/20 22:54 Duoneb - NEB Q6H PRN SHORTNESS OF BREATH Amlodipine Besylate 5 mg 03/05/20 22:53 03/07/20 10:52 Norvasc - PO 5 mg DAILY [facility] Administration Apixaban 5 mg 03/05/20 22:45 03/07/20 10:50 Eliquis - PO 5 mg BID [facility] Administration Atorvastatin Calcium 80 mg 03/06/20 22:00 03/06/20 21:51 Lipitor - PO 80 mg HS [facility] Administration Budesonide/Formoterol Fumarate 2 puff 03/06/20 10:00 03/07/20 12:37 Symbicort 80/4.5mcg - IH 2 puff BID [facility] Administration Furosemide 40 mg 03/06/20 10:00 03/07/20 10:54 Lasix Injection - IVPUSH 40 mg DAILY [facility] Administration Montelukast Sodium 10 mg 03/06/20 22:00 03/06/20 21:51 Singulair - PO 10 mg HS [facility] Administration Nicotine 14 mg 03/06/20 13:30 03/07/20 10:51 Nicoderm Patch - TD 14 mg DAILY [facility] Administration Laboratory Tests 03/05/20 03/05/20 03/05/20 11:50 11:50 15:21 Sodium 124 L Potassium 4.2 Carbon Dioxide 28 Creatinine 0.6 B-Natriuretic Peptide 2985.8 H 2894.1 H Urine Osmolality Ur Random Sodium COVID-19 (VINICIUS) Pending 03/06/20 03/06/20 05:46 17:30 Sodium 129 L Potassium 3.9 Carbon Dioxide 33 H Creatinine 0.7 B-Natriuretic Peptide Urine Osmolality 293 L Ur Random Sodium 110 COVID-19 (VINICIUS) Impression 1. hyponatremia 2. chf 3. asthma 4. htn 5. smoker 6. hld Plan - cont lasix - check bmp and call me with results - volume status improved - restrict free water - do not restart thiazide - cont to monitor lytes - hyponatremia likely a combination of thiazide and chf
[2020-03-07 15:53] LABS: BLOOD UREA NITROGEN 10.3 mg/dL (7-18); CALCIUM 8.9 mg/dL (8.5-10.1); CREATININE 0.7 mg/dL (0.55-1.3); POTASSIUM 3.8 mmol/L (3.5-5.1)
--- NOTE | 2020-03-07 17:02 | PN ---
Progress Note, Physician History of Present Illness: stable - Current Medication List Current Medications: Active Medications Albuterol/Ipratropium (Duoneb -) 1 amp NEB Q6H PRN PRN Reason: SHORTNESS OF BREATH Amlodipine Besylate (Norvasc -) 5 mg PO DAILY [facility] Last Admin: 03/07/20 10:52 Dose: 5 mg Documented by: Apixaban (Eliquis -) 5 mg PO BID [facility] Last Admin: 03/07/20 10:50 Dose: 5 mg Documented by: Atorvastatin Calcium (Lipitor -) 80 mg PO [facility] Last Admin: 03/06/20 21:51 Dose: 80 mg Documented by: Budesonide/Formoterol Fumarate (Symbicort 80/4.5mcg -) 2 puff IH BID [facility] Last Admin: 03/07/20 12:37 Dose: 2 puff Documented by: Furosemide (Lasix Injection -) 40 mg IVPUSH DAILY [facility] Last Admin: 03/07/20 10:54 Dose: 40 mg Documented by: Montelukast Sodium (Singulair -) 10 mg PO [facility] Last Admin: 03/06/20 21:51 Dose: 10 mg Documented by: Nicotine (Nicoderm Patch -) 14 mg TD DAILY [facility] Last Admin: 03/07/20 10:51 Dose: 14 mg Documented by: - Objective Vital Signs: Vital Signs Temperature 97.8 F 03/07/20 14:00 Pulse Rate 81 03/07/20 14:00 Respiratory Rate 20 03/07/20 14:00 Blood Pressure 162/60 03/07/20 14:00 O2 Sat by Pulse Oximetry (%) 96 03/07/20 14:00 Constitutional: Yes: No Distress HENT: Yes: Atraumatic Neck: Yes: Supple Cardiovascular: Yes: Regular Rate and Rhythm Respiratory: Yes: CTA Bilaterally Gastrointestinal: Yes: Normal Bowel Sounds Extremities: Yes: WNL Edema: No Neurological: Yes: Alert, Oriented Labs: CBC, BMP 03/06/20 05:46 03/07/20 14:20 Problem List - Problems (1) CHF (congestive heart failure) Assessment/Plan: on meds monitor Code(s): I50.9 - HEART FAILURE, UNSPECIFIED (2) DVT (deep venous thrombosis) Assessment/Plan: ON AC Code(s): I82.409 - ACUTE EMBOLISM AND THOMBOS UNSP DEEP VN UNSP LOWER EXTREMITY (3) Elevated troponin Assessment/Plan: trending down Code(s): R79.89 - OTHER SPECIFIED ABNORMAL FINDINGS OF BLOOD CHEMISTRY (4) HLD (hyperlipidemia) Code(s): E78.5 - HYPERLIPIDEMIA, UNSPECIFIED (5) HTN (hypertension) Assessment/Plan: on meds monitor Code(s): I10 - ESSENTIAL (PRIMARY) HYPERTENSION Assessment/Plan continue current meds all consults reviewed COVERING FO DR LAGUERRE TODAY
[2020-03-07] MEDS: MONTELUKAST NA 10 MG TABLET PO SCH (22:38)
[2020-03-07] MEDS: ATORVASTATIN CA 80 MG TABLET (FP) PO SCH (22:38)
[2020-03-08 06:21] LABS: BASO % 0.8 % (0-2.0); HEMATOCRIT 41.1 % (32.4-45.2); HEMOGLOBIN 13.4 GM/dL (10.7-15.3); LYMPH % 19.2 % (8-40); MCH 28.3 pg (25.7-33.7); MCHC 32.5 g/dl (32.0-36.0); MEAN CELL VOLUME 87.3 fl (80-96); MEAN PLT VOLUME 6.6 fl (7.5-11.1); MONO % 10.7 % (3.8-10.2); NEUT % 67.3 % (42.8-82.8); PLATELET COUNT 184 K/MM3 (134-434); RBC 4.71 M/mm3 (3.60-5.2); RDW 14.8 % (11.6-15.6); WHITE BLOOD COUNT 8.1 K/mm3 (4.0-10.0)
[2020-03-08 06:50] LABS: ALBUMIN 3.2 g/dl (3.4-5.0); BILIRUBIN,TOTAL 0.6 mg/dL (0.2-1); CREATININE 0.7 mg/dL (0.55-1.3); POTASSIUM 3.7 mmol/L (3.5-5.1); TOT PROT 6.4 g/dl (6.4-8.2)
[2020-03-08] MEDS: APIXABAN 5 MG TABLET PO SCH ×2 (10:11→21:24)
[2020-03-08] MEDS: amLODIPine BESYLATE 5 MG TABLET (FP) PO SCH (10:11)
[2020-03-08] MEDS: FUROSEMIDE 40 MG/4 ML INJECTABLE VIAL IVPUSH SCH (10:11)
[2020-03-08] MEDS: BUDESONIDE/FORMETEROL FUMARATE 80/4.5 mcg INHALER IH SCH ×2 (10:11→21:24)
[2020-03-08] MEDS ORDERED: PT OWN MED DRAWER 7, Y5N ONE (10:20)
[2020-03-08] MEDS: NICOTINE 14 MG/24 HOURS TOPICAL PATCH TD SCH (10:24)
--- NOTE | 2020-03-08 12:04 | PN ---
Progress Note (short form) - Note Progress Note: PULMONARY States breathing continues to improve. +nonproductive cough. States leg swelling is improving. Vital Signs Period Temp Pulse Resp BP Sys/[place] Pulse Ox Last 24 Hr 97.7 F-98.2 F 41-82 15-27 145-165/40-60 96-100 Intake & Output 03/05/20 03/06/20 03/07/20 03/08/20 23:59 23:59 23:59 23:59 Intake Total 600 520 260 Output Total 700 1200 Balance -100 -680 260 Weight 76.204 kg 66.723 kg 66.678 kg 66.996 kg Gen: NAD at rest Heart: RRR Lung: decreased breath sounds at the bases Abd: soft, nontender Ext: less edema CBC, BMP 03/08/20 05:50 03/08/20 05:50 Active Medications Albuterol/Ipratropium (Duoneb -) 1 amp NEB Q6H PRN PRN Reason: SHORTNESS OF BREATH Amlodipine Besylate (Norvasc -) 5 mg PO DAILY [facility] Last Admin: 03/08/20 10:11 Dose: 5 mg Documented by: Apixaban (Eliquis -) 5 mg PO BID [facility] Last Admin: 03/08/20 10:11 Dose: 5 mg Documented by: Atorvastatin Calcium (Lipitor -) 80 mg PO [facility] Last Admin: 03/07/20 22:38 Dose: 80 mg Documented by: Budesonide/Formoterol Fumarate (Symbicort 80/4.5mcg -) 2 puff IH BID [facility] Last Admin: 03/08/20 10:11 Dose: 2 puff Documented by: Furosemide (Lasix Injection -) 40 mg IVPUSH DAILY [facility] Last Admin: 03/08/20 10:11 Dose: 40 mg Documented by: Montelukast Sodium (Singulair -) 10 mg PO HS [facility] Last Admin: 03/07/20 22:38 Dose: 10 mg Documented by: Nicotine (Nicoderm Patch -) 14 mg TD DAILY [facility] Last Admin: 03/08/20 10:24 Dose: 14 mg Documented by: A/P Acute on Chronic Diastolic Heart Failure +Troponins likely Demand Ischemia Hyponatremia HTN Hyperlipidemia PAD Asthma/Likely COPD Smoker - continue lasix - monitor urine output, creatinine - daily weights - monitor lytes with diuresis - O2 to keep Spo2 >90%, when ready for discharge will need to check ambulatory spO2 on room air to assess for home O2 - inhaled bronchodilators - smoking cessation discussed - DVT prophylaxis
--- NOTE | 2020-03-08 12:10 | EKG ---
Test Reason : Blood Pressure : / mmHG Vent. Rate : 075 BPM Atrial Rate : 075 BPM P-R Int : 172 ms QRS Dur : 096 ms QT Int : 422 ms P-R-T Axes : 068 074 069 degrees QTc Int : 471 ms NORMAL SINUS RHYTHM POSSIBLE LEFT ATRIAL ENLARGEMENT BORDERLINE ECG WHEN COMPARED WITH ECG OF 05-MAR-2020 14:50, MINIMAL CRITERIA FOR INFERIOR INFARCT ARE NO LONGER PRESENT Confirmed by ROM ESPINAL, RONALD ([id number]) on 03/08/2020 12:10:16 PM Referred By: [facility] Confirmed By:RONALD CUETO MD
--- NOTE | 2020-03-08 15:54 | PN ---
Progress Note, Physician History of Present Illness: Pt seen and examined at bedside. She is awake and appears comfortable. - Current Medication List Current Medications: Active Medications Albuterol/Ipratropium (Duoneb -) 1 amp NEB Q6H PRN PRN Reason: SHORTNESS OF BREATH Amlodipine Besylate (Norvasc -) 5 mg PO DAILY [facility] Last Admin: 03/08/20 10:11 Dose: 5 mg Documented by: Apixaban (Eliquis -) 5 mg PO BID [facility] Last Admin: 03/08/20 10:11 Dose: 5 mg Documented by: Atorvastatin Calcium (Lipitor -) 80 mg PO HS [facility] Last Admin: 03/07/20 22:38 Dose: 80 mg Documented by: Budesonide/Formoterol Fumarate (Symbicort 80/4.5mcg -) 2 puff IH BID [facility] Last Admin: 03/08/20 10:11 Dose: 2 puff Documented by: Furosemide (Lasix Injection -) 40 mg IVPUSH DAILY [facility] Last Admin: 03/08/20 10:11 Dose: 40 mg Documented by: Montelukast Sodium (Singulair -) 10 mg PO HS [facility] Last Admin: 03/07/20 22:38 Dose: 10 mg Documented by: Nicotine (Nicoderm Patch -) 14 mg TD DAILY [facility] Last Admin: 03/08/20 10:24 Dose: 14 mg Documented by: - Objective Vital Signs: Vital Signs Temperature 97.4 F L 03/08/20 12:00 Pulse Rate 77 03/08/20 12:00 Respiratory Rate 19 03/08/20 12:00 Blood Pressure 118/56 L 03/08/20 12:00 O2 Sat by Pulse Oximetry (%) 93 L 03/08/20 12:00 Constitutional: Yes: Calm Eyes: Yes: Conjunctiva Clear HENT: Yes: Atraumatic Neck: Yes: Supple Cardiovascular: Yes: S1, S2 Respiratory: Yes: CTA Bilaterally Gastrointestinal: Yes: Soft Genitourinary: Yes: WNL Musculoskeletal: Yes: WNL Edema: Yes Edema: LLE: Trace, RLE: Trace Neurological: Yes: Oriented Psychiatric: Yes: Oriented Labs: CBC, BMP 03/08/20 05:50 03/08/20 05:50 Problem List - Problems (1) Hyponatremia Code(s): E87.1 - HYPO-OSMOLALITY AND HYPONATREMIA (2) Heart failure Code(s): I50.9 - HEART FAILURE, UNSPECIFIED Qualifiers: Heart failure type: unspecified Heart failure chronicity: unspecified Qualified Code(s): I50.9 - Heart failure, unspecified Assessment/Plan Current Medications Generic Name Dose Route Start Last Admin Trade Name Freq PRN Reason Stop Dose Admin Albuterol/Ipratropium 1 amp 03/05/20 22:54 Duoneb - NEB Q6H PRN SHORTNESS OF BREATH Amlodipine Besylate 5 mg 03/05/20 22:53 03/08/20 10:11 Norvasc - PO 5 mg DAILY [facility] Administration Apixaban 5 mg 03/05/20 22:45 03/08/20 10:11 Eliquis - PO 5 mg BID [facility] Administration Atorvastatin Calcium 80 mg 03/06/20 22:00 03/07/20 22:38 Lipitor - PO 80 mg HS [facility] Administration Budesonide/Formoterol Fumarate 2 puff 03/06/20 10:00 03/08/20 10:11 Symbicort 80/4.5mcg - IH 2 puff BID [facility] Administration Furosemide 40 mg 03/06/20 10:00 03/08/20 10:11 Lasix Injection - IVPUSH 40 mg DAILY [facility] Administration Montelukast Sodium 10 mg 03/06/20 22:00 03/07/20 22:38 Singulair - PO 10 mg HS [facility] Administration Nicotine 14 mg 03/06/20 13:30 03/08/20 10:24 Nicoderm Patch - TD 14 mg DAILY [facility] Administration Impression 1. hyponatremia 2. chf 3. asthma 4. htn 5. smoker 6. hld Plan - switch lasix to po - restrict free water - volume status improving - she did get IV lasix today - monitor bicarb - do not restart thiazide - cont to monitor lytes - hyponatremia likely a combination of thiazide and chf
--- NOTE | 2020-03-08 21:00 | PN ---
Progress Note, Physician Chief Complaint: Pt A&ox3; no further chest discomfort (had brief episode of sharp chest pain a few hours earlier). History of Present Illness: Ms. Aguirre is a 69yo black woman, smoker, who presents with LLE swelling x3 weeks and hypoxia at her PCP's office today. Pt reports three weeks ago she noticed that her LLE was swollen and painful when touched. She states the swelling remained unchanged x 3wks. She went to her PCP's office today and was found to be hypoxic on room air. The low SpO2 + the LLE swelling prompted the PCP (Timothy Bolivar MD) to send pt to ED after giving 150mg Lovenox + performing a 12 lead. Denies hemoptysis, paresthesia in the leg, denies pallor of the extremity. Denies CP but endorses some SOB. She denies recent travel. She denies a h/o blood clots, recent fevers, sore throat, or cough. NKDA. Meds: albuterol, apixaban, atorvastatin, budesonide-formoterol, lasix, losartan + HCTZ, montelukast No history of this before PMH: COPD, HTN, HLD, PVD. She states two years ago she fell; she spent 8 months in 3 different hospitals, and her left leg "has not been the same." She denies any fx or surgery - Current Medication List Current Medications: Active Medications Albuterol/Ipratropium (Duoneb -) 1 amp NEB Q6H PRN PRN Reason: SHORTNESS OF BREATH Amlodipine Besylate (Norvasc -) 5 mg PO DAILY [facility] Last Admin: 03/08/20 10:11 Dose: 5 mg Documented by: Apixaban (Eliquis -) 5 mg PO BID [facility] Last Admin: 03/08/20 10:11 Dose: 5 mg Documented by: Atorvastatin Calcium (Lipitor -) 80 mg PO HS [facility] Last Admin: 03/07/20 22:38 Dose: 80 mg Documented by: Budesonide/Formoterol Fumarate (Symbicort 80/4.5mcg -) 2 puff IH BID [facility] Last Admin: 03/08/20 10:11 Dose: 2 puff Documented by: Furosemide (Lasix -) 40 mg PO DAILY [facility] Montelukast Sodium (Singulair -) 10 mg PO [facility] Last Admin: 03/07/20 22:38 Dose: 10 mg Documented by: Nicotine (Nicoderm Patch -) 14 mg TD DAILY [facility] Last Admin: 03/08/20 10:24 Dose: 14 mg Documented by: - Objective Vital Signs: Vital Signs Temperature 98.3 F 03/08/20 20:00 Pulse Rate 84 03/08/20 20:00 Respiratory Rate 24 H 03/08/20 20:00 Blood Pressure 137/62 03/08/20 20:00 O2 Sat by Pulse Oximetry (%) 94 L 03/08/20 20:00 Constitutional: Yes: Calm Eyes: Yes: WNL HENT: Yes: WNL Neck: Yes: WNL Cardiovascular: Yes: Regular Rate and Rhythm, Murmur (2/4 diastolic murmur, RSB -->base), S1, S2 Respiratory: Yes: Diminished Gastrointestinal: Yes: Soft ...Rectal Exam: Yes: Deferred Genitourinary: No: Anuria Breast(s): Yes: WNL Extremities: Yes: Other (chronic left knee pain) Edema: No Peripheral Pulses WNL: Yes Integumentary: Yes: WNL Neurological: Yes: WNL Psychiatric: Yes: WNL Labs: CBC, BMP 03/08/20 05:50 03/08/20 05:50 Abnormal Lab Results 03/08/20 03/08/20 03/08/20 05:50 05:50 12:05 MPV 6.6 L Monocytes % 10.7 H Sodium 130 L Chloride 86 L Carbon Dioxide 39 H Anion Gap 5 L AST 14 L CK-MB (CK-2) 4.9 H Troponin I 0.11 H 0.10 H Albumin 3.2 L - ....Imaging Chest X-ray: Image Reviewed Ultrasound: Image Reviewed EKG: Image Reviewed Assessment/Plan LLE pain/swelling; hx DVT (on apixaban) COPD; multiple lung nodules Long-term cigarette smoker. Acute/chronic CHF (pt gives hx of "weak heart"); ?old anterior infarct by EKG. ECHO: normal LVEF; abnormal diastolic compliance; mild-moderate AR. HTN HLD elevated TNI: likely demand ischemia. hyponatremia COVID not detected. Plan: On bronchodilators; for home O2 assessment On furosemide; f/u BUN/Cr, electrolytes, Is and Os, daily weight. On atorvastatin; total cholesterol 132; LDL 63 mg/dL. TNI and EKG not significantly changed this morning (being assessed for overnight chest discomfort); f/u serially. Stress MIBI when stable. CC time spent: 35 minutes.
[2020-03-08] MEDS: ATORVASTATIN CA 80 MG TABLET (FP) PO SCH (21:24)
[2020-03-08] MEDS: MONTELUKAST NA 10 MG TABLET PO SCH (21:24)
--- NOTE | 2020-03-08 21:52 | PN ---
Progress Note, Physician History of Present Illness: No new complaints - Current Medication List Current Medications: Active Medications Albuterol/Ipratropium (Duoneb -) 1 amp NEB Q6H PRN PRN Reason: SHORTNESS OF BREATH Amlodipine Besylate (Norvasc -) 5 mg PO DAILY [facility] Last Admin: 03/08/20 10:11 Dose: 5 mg Documented by: Apixaban (Eliquis -) 5 mg PO BID [facility] Last Admin: 03/08/20 21:24 Dose: 5 mg Documented by: Atorvastatin Calcium (Lipitor -) 80 mg PO [facility] Last Admin: 03/08/20 21:24 Dose: 80 mg Documented by: Budesonide/Formoterol Fumarate (Symbicort 80/4.5mcg -) 2 puff IH BID [facility] Last Admin: 03/08/20 21:24 Dose: 2 puff Documented by: Furosemide (Lasix -) 40 mg PO DAILY [facility] Montelukast Sodium (Singulair -) 10 mg PO [facility] Last Admin: 03/08/20 21:24 Dose: 10 mg Documented by: Nicotine (Nicoderm Patch -) 14 mg TD DAILY [facility] Last Admin: 03/08/20 10:24 Dose: 14 mg Documented by: - Objective Vital Signs: Vital Signs Temperature 98.3 F 03/08/20 20:00 Pulse Rate 84 03/08/20 20:00 Respiratory Rate 24 H 03/08/20 20:00 Blood Pressure 137/62 03/08/20 20:00 O2 Sat by Pulse Oximetry (%) 94 L 03/08/20 20:00 Cardiovascular: Yes: WNL, Regular Rate and Rhythm Respiratory: Yes: Diminished Gastrointestinal: Yes: WNL, Normal Bowel Sounds, Soft Edema: LLE: Trace, RLE: Trace Labs: CBC, BMP 03/08/20 05:50 03/08/20 05:50 Problem List - Problems (1) CHF (congestive heart failure) Code(s): I50.9 - HEART FAILURE, UNSPECIFIED Qualifiers: Heart failure type: diastolic Heart failure chronicity: acute on chronic Qualified Code(s): I50.33 - Acute on chronic diastolic (congestive) heart failure (2) Elevated troponin Code(s): R79.89 - OTHER SPECIFIED ABNORMAL FINDINGS OF BLOOD CHEMISTRY (3) Hypoxia Code(s): R09.02 - HYPOXEMIA (4) DVT (deep venous thrombosis) Code(s): I82.409 - ACUTE EMBOLISM AND THOMBOS UNSP DEEP VN UNSP LOWER EXTREMITY (5) HLD (hyperlipidemia) Code(s): E78.5 - HYPERLIPIDEMIA, UNSPECIFIED Qualifiers: Hyperlipidemia type: pure hypercholesterolemia Qualified Code(s): E78.00 - Pure hypercholesterolemia, unspecified; E78.0 - Pure hypercholesterolemia (6) HTN (hypertension) Code(s): I10 - ESSENTIAL (PRIMARY) HYPERTENSION Qualifiers: Hypertension type: essential hypertension Qualified Code(s): I10 - Essential (primary) hypertension (7) Hyponatremia Code(s): E87.1 - HYPO-OSMOLALITY AND HYPONATREMIA
[2020-03-09 06:49] LABS: ALBUMIN 3.2 g/dl (3.4-5.0); BILIRUBIN,TOTAL 0.8 mg/dL (0.2-1); BLOOD UREA NITROGEN 17.9 mg/dL (7-18); CALCIUM 9.1 mg/dL (8.5-10.1); CREATININE 0.7 mg/dL (0.55-1.3); POTASSIUM 3.8 mmol/L (3.5-5.1); TOT PROT 6.8 g/dl (6.4-8.2)
[2020-03-09] MEDS: APIXABAN 5 MG TABLET PO SCH ×2 (09:05→21:31)
[2020-03-09] MEDS: amLODIPine BESYLATE 5 MG TABLET (FP) PO SCH (09:05)
[2020-03-09] MEDS: FUROSEMIDE 20 MG TABLET (FP) PO ONE ×2 (09:05→09:16)
[2020-03-09] MEDS: NICOTINE 14 MG/24 HOURS TOPICAL PATCH TD SCH (09:06)
[2020-03-09] MEDS: BUDESONIDE/FORMETEROL FUMARATE 80/4.5 mcg INHALER IH SCH ×2 (09:07→21:32)
--- NOTE | 2020-03-09 09:47 | PN ---
Progress Note, Physician Chief Complaint: Pt A&Ox3; no chest pain or duyspnea; wants to eat breakfast (held due to stress MIBI). History of Present Illness: The patient is a 69 year old female with a significant past medical history of asthma, LLE angioplasty, HTN, HLD who presents to the ED for evaluation of hypoxia that began today. She was sent from her PCPs office who discovered the hypoxia when she was in the office for left lower extremity edema that began three weeks ago. Her O2 sat was reportedly 80%. Her PCP administered 150mg of Lovenox, performed and EKG and sent the pt to the ED. The patient denies fever, chills, sob, CP. She denies dizziness, headache, focal weakness/numbness, abd pain, urinary sxs. Surgical Hx: appendectomy, bilateral knee arthroscopy Social Hx: Patient reports smoking 4-5 cigarettes per day for 50 years. Allergies: NKDA, tomatoes PCP: Timothy Bolivar - Current Medication List Current Medications: Active Medications Albuterol/Ipratropium (Duoneb -) 1 amp NEB Q6H PRN PRN Reason: SHORTNESS OF BREATH Amlodipine Besylate (Norvasc -) 5 mg PO DAILY [facility] Last Admin: 03/09/20 09:05 Dose: 5 mg Documented by: Apixaban (Eliquis -) 5 mg PO BID [facility] Last Admin: 03/09/20 09:05 Dose: 5 mg Documented by: Atorvastatin Calcium (Lipitor -) 80 mg PO [facility] Last Admin: 03/08/20 21:24 Dose: 80 mg Documented by: Budesonide/Formoterol Fumarate (Symbicort 80/4.5mcg -) 2 puff IH BID [facility] Last Admin: 03/09/20 09:07 Dose: 2 puff Documented by: Furosemide (Lasix -) 40 mg PO DAILY [facility] Last Admin: 03/09/20 09:05 Dose: Not Given Documented by: Montelukast Sodium (Singulair -) 10 mg PO [facility] Last Admin: 03/08/20 21:24 Dose: 10 mg Documented by: Nicotine (Nicoderm Patch -) 14 mg TD DAILY [facility] Last Admin: 03/09/20 09:06 Dose: 14 mg Documented by: - Objective Vital Signs: Vital Signs Temperature 98.1 F 03/09/20 06:00 Pulse Rate 68 03/09/20 06:00 Respiratory Rate 16 03/09/20 06:00 Blood Pressure 190/70 H 03/09/20 06:00 O2 Sat by Pulse Oximetry (%) 99 03/09/20 06:00 Constitutional: Yes: Anxious Eyes: Yes: WNL HENT: Yes: WNL Neck: Yes: WNL Cardiovascular: Yes: S1, S2 Respiratory: Yes: Regular Gastrointestinal: Yes: Soft ...Rectal Exam: Yes: Deferred Genitourinary: No: Anuria Breast(s): Yes: WNL Musculoskeletal: Yes: Joint Stiffness (left knee) Extremities: Yes: Cool Peripheral Pulses WNL: Yes Neurological: Yes: Alert, Oriented Psychiatric: Yes: Alert, Oriented Labs: CBC, BMP 03/08/20 05:50 03/09/20 05:30 Problem List - Problems (1) Elevated troponin Code(s): R79.89 - OTHER SPECIFIED ABNORMAL FINDINGS OF BLOOD CHEMISTRY (2) Heart failure Code(s): I50.9 - HEART FAILURE, UNSPECIFIED Qualifiers: Heart failure type: unspecified Heart failure chronicity: unspecified Qualified Code(s): I50.9 - Heart failure, unspecified (3) Hypoxia Code(s): R09.02 - HYPOXEMIA Assessment/Plan COPD; multiple lung nodules Long-term cigarette smoker. Acute/chronic CHF (pt gives hx of "weak heart"); ?old anterior infarct by EKG. HTN HLD elevated TNI Plan: ECHO for LVEF Obtain prior medical records. Nicotine patch (pt agrees). Workup of lung findings; r/o malignancy. lipid profile (on atorvastatin). Stress MIBI; pt says she is able to walk on a treadmill despite knee problems. CC time spent 35 min
[2020-03-09] MEDS ORDERED: FUROSEMIDE 40 MG TABLET (FP) PO SCH (10:00)
--- NOTE | 2020-03-09 12:49 | PN ---
Progress Note, Physician History of Present Illness: stable - Current Medication List Current Medications: Active Medications Albuterol/Ipratropium (Duoneb -) 1 amp NEB Q6H PRN PRN Reason: SHORTNESS OF BREATH Amlodipine Besylate (Norvasc -) 5 mg PO DAILY [facility] Last Admin: 03/09/20 09:05 Dose: 5 mg Documented by: Apixaban (Eliquis -) 5 mg PO BID [facility] Last Admin: 03/09/20 09:05 Dose: 5 mg Documented by: Atorvastatin Calcium (Lipitor -) 80 mg PO [facility] Last Admin: 03/08/20 21:24 Dose: 80 mg Documented by: Budesonide/Formoterol Fumarate (Symbicort 80/4.5mcg -) 2 puff IH BID [facility] Last Admin: 03/09/20 09:07 Dose: 2 puff Documented by: Furosemide (Lasix -) 40 mg PO DAILY [facility] Last Admin: 03/09/20 09:05 Dose: Not Given Documented by: Montelukast Sodium (Singulair -) 10 mg PO [facility] Last Admin: 03/08/20 21:24 Dose: 10 mg Documented by: Nicotine (Nicoderm Patch -) 14 mg TD DAILY [facility] Last Admin: 03/09/20 09:06 Dose: 14 mg Documented by: - Objective Vital Signs: Vital Signs Temperature 98.1 F 03/09/20 06:00 Pulse Rate 68 03/09/20 06:00 Respiratory Rate 16 03/09/20 06:00 Blood Pressure 190/70 H 03/09/20 06:00 O2 Sat by Pulse Oximetry (%) 99 03/09/20 06:00 Constitutional: Yes: No Distress HENT: Yes: Atraumatic Neck: Yes: Supple Cardiovascular: Yes: Regular Rate and Rhythm Respiratory: Yes: Rhonchi Gastrointestinal: Yes: Normal Bowel Sounds Extremities: Yes: WNL Neurological: Yes: Alert, Oriented Labs: CBC, BMP 03/08/20 05:50 03/09/20 05:30 Problem List - Problems (1) CHF (congestive heart failure) Assessment/Plan: on po lasix now monitor lytes stress mibi Code(s): I50.9 - HEART FAILURE, UNSPECIFIED (2) DVT (deep venous thrombosis) Assessment/Plan: ON AC Code(s): I82.409 - ACUTE EMBOLISM AND THOMBOS UNSP DEEP VN UNSP LOWER EXTREMITY (3) Elevated troponin Assessment/Plan: trending down Code(s): R79.89 - OTHER SPECIFIED ABNORMAL FINDINGS OF BLOOD CHEMISTRY (4) HLD (hyperlipidemia) Assessment/Plan: on meds Code(s): E78.5 - HYPERLIPIDEMIA, UNSPECIFIED (5) HTN (hypertension) Assessment/Plan: on meds monitor Code(s): I10 - ESSENTIAL (PRIMARY) HYPERTENSION (6) Asthma Assessment/Plan: on prn duo nebs Code(s): J45.909 - UNSPECIFIED ASTHMA, UNCOMPLICATED (7) Heart failure Code(s): I50.9 - HEART FAILURE, UNSPECIFIED Qualifiers: Heart failure type: unspecified Heart failure chronicity: unspecified Qualified Code(s): I50.9 - Heart failure, unspecified (8) Hyponatremia Assessment/Plan: Na still low monitor Code(s): E87.1 - HYPO-OSMOLALITY AND HYPONATREMIA Assessment/Plan continue current meds all consults reviewed COVERING FO DR LAGUERRE TODAY
--- NOTE | 2020-03-09 16:49 | PN ---
Progress Note (short form) - Note Progress Note: States breathing continues to improve. Some nonproductive cough. States leg swelling is improving. Intake & Output 03/06/20 03/07/20 03/08/20 03/09/20 23:59 23:59 23:59 23:59 Intake Total 600 520 660 400 Output Total 700 1200 1000 Balance -100 -680 -340 400 Weight 147 lb 1.6 oz 147 lb 147 lb 11.2 oz 147 lb 11.2 oz Last Vital Signs Temp Pulse Resp BP Pulse Ox 97.6 F 76 16 122/85 98 03/09/20 14:00 03/09/20 14:00 03/09/20 14:00 03/09/20 14:00 03/09/20 14:00 Active Medications Albuterol/Ipratropium (Duoneb -) 1 amp NEB Q6H PRN PRN Reason: SHORTNESS OF BREATH Amlodipine Besylate (Norvasc -) 5 mg PO DAILY [facility] Last Admin: 03/09/20 09:05 Dose: 5 mg Documented by: Apixaban (Eliquis -) 5 mg PO BID [facility] Last Admin: 03/09/20 09:05 Dose: 5 mg Documented by: Atorvastatin Calcium (Lipitor -) 80 mg PO [facility] Last Admin: 03/08/20 21:24 Dose: 80 mg Documented by: Budesonide/Formoterol Fumarate (Symbicort 80/4.5mcg -) 2 puff IH BID [facility] Last Admin: 03/09/20 09:07 Dose: 2 puff Documented by: Furosemide (Lasix -) 40 mg PO DAILY [facility] Last Admin: 03/09/20 09:05 Dose: Not Given Documented by: Montelukast Sodium (Singulair -) 10 mg PO [facility] Last Admin: 03/08/20 21:24 Dose: 10 mg Documented by: Nicotine (Nicoderm Patch -) 14 mg TD DAILY [facility] Last Admin: 03/09/20 09:06 Dose: 14 mg Documented by: Gen: NAD at rest Heart: RRR Lung: decreased breath sounds at the bases Abd: soft, nontender Ext: less edema Laboratory Results - last 24 hr 03/09/20 03/09/20 05:30 09:49 Sodium 129 L Potassium 3.8 Chloride 86 L Carbon Dioxide 37 H Anion Gap 6 L BUN 17.9 Creatinine 0.7 Est GFR (CKD-EPI)AfAm 102.46 Est GFR (CKD-EPI)NonAf 88.40 POC Glucometer 112 Random Glucose 98 Calcium 9.1 Total Bilirubin 0.8 AST 16 ALT 17 Alkaline Phosphatase 104 Total Protein 6.8 Albumin 3.2 L A/P Acute on Chronic Diastolic Heart Failure +Troponins likely Demand Ischemia Hyponatremia HTN Hyperlipidemia PAD Asthma/Likely COPD Smoker - lasix - monitor urine output, creatinine - daily weights - monitor lytes with diuresis - O2 to keep Spo2 >90%, when ready for discharge will need to check ambulatory spO2 on room air to assess for home O2 - inhaled bronchodilators - smoking cessation discussed - DVT prophylaxis Dr Godinez
--- NOTE | 2020-03-09 19:00 | PN ---
Progress Note, Physician Chief Complaint: Pt A&ox3; no chest pain or dyspnea; upset she can not eat breakfast (NPO for stress MIBI). History of Present Illness: Ms. Aguirre is a 69yo black woman, smoker, who presents with LLE swelling x3 weeks and hypoxia at her PCP's office today. Pt reports three weeks ago she noticed that her LLE was swollen and painful when touched. She states the swelling remained unchanged x 3wks. She went to her PCP's office today and was found to be hypoxic on room air. The low SpO2 + the LLE swelling prompted the PCP (Timothy Bolivar MD) to send pt to ED after giving 150mg Lovenox + performing a 12 lead. Denies hemoptysis, paresthesia in the leg, denies pallor of the extremity. Denies CP but endorses some SOB. She denies recent travel. She denies a h/o blood clots, recent fevers, sore throat, or cough. NKDA. Meds: albuterol, apixaban, atorvastatin, budesonide-formoterol, lasix, losartan + HCTZ, montelukast No history of this before PMH: COPD, HTN, HLD, PVD. She states two years ago she fell; she spent 8 months in 3 different hospitals, and her left leg "has not been the same." She denies any fx or surgery - Current Medication List Current Medications: Active Medications Albuterol/Ipratropium (Duoneb -) 1 amp NEB Q6H PRN PRN Reason: SHORTNESS OF BREATH Amlodipine Besylate (Norvasc -) 5 mg PO DAILY [facility] Last Admin: 03/09/20 09:05 Dose: 5 mg Documented by: Apixaban (Eliquis -) 5 mg PO BID [facility] Last Admin: 03/09/20 09:05 Dose: 5 mg Documented by: Atorvastatin Calcium (Lipitor -) 80 mg PO HS [facility] Last Admin: 03/08/20 21:24 Dose: 80 mg Documented by: Budesonide/Formoterol Fumarate (Symbicort 80/4.5mcg -) 2 puff IH BID [facility] Last Admin: 03/09/20 09:07 Dose: 2 puff Documented by: Furosemide (Lasix -) 40 mg PO DAILY [facility] Last Admin: 03/09/20 09:05 Dose: Not Given Documented by: Montelukast Sodium (Singulair -) 10 mg PO HS [facility] Last Admin: 03/08/20 21:24 Dose: 10 mg Documented by: Nicotine (Nicoderm Patch -) 14 mg TD DAILY [facility] Last Admin: 03/09/20 09:06 Dose: 14 mg Documented by: - Objective Vital Signs: Vital Signs Temperature 97.6 F 03/09/20 18:00 Pulse Rate 71 03/09/20 18:00 Respiratory Rate 16 03/09/20 18:00 Blood Pressure 161/60 03/09/20 18:00 O2 Sat by Pulse Oximetry (%) 93 L 03/09/20 18:00 Labs: CBC, BMP 03/08/20 05:50 03/09/20 05:30 Assessment/Plan LLE pain/swelling; hx DVT (on apixaban) COPD; multiple lung nodules Long-term cigarette smoker. Acute/chronic CHF (pt gives hx of "weak heart"); ?old anterior infarct by EKG. ECHO: normal LVEF; abnormal diastolic compliance; mild-moderate AR. HTN HLD elevated TNI: likely demand ischemia. hyponatremia COVID not detected. Plan: Stress MIBI today (pt says she walks a few blocks daily at home, despite chronic knee pain; she wants to use treadmill as stress agent. Lexiscan may be considered if she is unable to walk adequately: she denies having had astthma as a child or young adult, and only started bronchodilators 4 yrs ago (COPD). Discontinue furosemide; increase amlodipine to 10 mg daily; f/u BP, electrolytes (Na). On atorvastatin; total cholesterol 132; LDL 63 mg/dL. CC time spent: 35 minutes. Addendum: pt felt nauseous after taking morning medications; found to have systolic BP 200 mmHg. Stress MIBI cancelled.
[2020-03-09] MEDS ORDERED: amLODIPine BESYLATE 5 MG TABLET (FP) PO ONE (19:14)
--- NOTE | 2020-03-09 19:23 | PN ---
Progress Note, Physician History of Present Illness: Pt seen and examined at bedside. She is awake and appears comfortable. - Current Medication List Current Medications: Active Medications Albuterol/Ipratropium (Duoneb -) 1 amp NEB Q6H PRN PRN Reason: SHORTNESS OF BREATH Amlodipine Besylate (Norvasc -) 10 mg PO DAILY [facility] Apixaban (Eliquis -) 5 mg PO BID [facility] Last Admin: 03/09/20 09:05 Dose: 5 mg Documented by: Atorvastatin Calcium (Lipitor -) 80 mg PO [facility] Last Admin: 03/08/20 21:24 Dose: 80 mg Documented by: Budesonide/Formoterol Fumarate (Symbicort 80/4.5mcg -) 2 puff IH BID [facility] Last Admin: 03/09/20 09:07 Dose: 2 puff Documented by: Montelukast Sodium (Singulair -) 10 mg PO [facility] Last Admin: 03/08/20 21:24 Dose: 10 mg Documented by: Nicotine (Nicoderm Patch -) 14 mg TD DAILY [facility] Last Admin: 03/09/20 09:06 Dose: 14 mg Documented by: - Objective Vital Signs: Vital Signs Temperature 97.6 F 03/09/20 18:00 Pulse Rate 71 03/09/20 18:00 Respiratory Rate 16 03/09/20 18:00 Blood Pressure 161/60 03/09/20 18:00 O2 Sat by Pulse Oximetry (%) 93 L 03/09/20 18:00 Constitutional: Yes: Calm Eyes: Yes: Conjunctiva Clear HENT: Yes: Atraumatic Neck: Yes: Supple Cardiovascular: Yes: S1, S2 Respiratory: Yes: CTA Bilaterally Gastrointestinal: Yes: Normal Bowel Sounds, Soft Musculoskeletal: Yes: WNL Extremities: Yes: WNL Neurological: Yes: Oriented Psychiatric: Yes: Oriented Labs: CBC, BMP 03/08/20 05:50 03/09/20 05:30 Problem List - Problems (1) Hyponatremia Code(s): E87.1 - HYPO-OSMOLALITY AND HYPONATREMIA (2) Heart failure Code(s): I50.9 - HEART FAILURE, UNSPECIFIED Qualifiers: Heart failure type: unspecified Heart failure chronicity: unspecified Qualified Code(s): I50.9 - Heart failure, unspecified Assessment/Plan Current Medications Generic Name Dose Route Start Last Admin Trade Name Freq PRN Reason Stop Dose Admin Albuterol/Ipratropium 1 amp 03/05/20 22:54 Duoneb - NEB Q6H PRN SHORTNESS OF BREATH Amlodipine Besylate 10 mg 03/10/20 10:00 Norvasc - PO DAILY [facility] Apixaban 5 mg 03/05/20 22:45 03/09/20 09:05 Eliquis - PO 5 mg BID [facility] Administration Atorvastatin Calcium 80 mg 03/06/20 22:00 03/08/20 21:24 Lipitor - PO 80 mg HS [facility] Administration Budesonide/Formoterol Fumarate 2 puff 03/06/20 10:00 03/09/20 09:07 Symbicort 80/4.5mcg - IH 2 puff BID [facility] Administration Montelukast Sodium 10 mg 03/06/20 22:00 03/08/20 21:24 Singulair - PO 10 mg HS [facility] Administration Nicotine 14 mg 03/06/20 13:30 03/09/20 09:06 Nicoderm Patch - TD 14 mg DAILY [facility] Administration Laboratory Tests 03/06/20 03/07/20 17:30 05:45 Serum Osmolality 275 L Urine Osmolality 293 L Ur Random Sodium 110 Impression 1. hyponatremia 2. chf 3. asthma 4. htn 5. smoker 6. hld Plan - restrict free water - cont lasix - volume status improving - monitor bicarb - cont to monitor lytes - hyponatremia likely a combination of thiazide and chf
[2020-03-09] MEDS: ATORVASTATIN CA 80 MG TABLET (FP) PO SCH (21:31)
[2020-03-09] MEDS: MONTELUKAST NA 10 MG TABLET PO SCH (21:31)
[2020-03-10 05:51] LABS: BASO % 0.9 % (0-2.0); EOS % 2.9 % (0-4.5); HEMATOCRIT 43.3 % (32.4-45.2); LYMPH % 18.7 % (8-40); MCH 28.4 pg (25.7-33.7); MCHC 32.3 g/dl (32.0-36.0); MEAN CELL VOLUME 87.9 fl (80-96); MEAN PLT VOLUME 6.6 fl (7.5-11.1); MONO % 8.7 % (3.8-10.2); NEUT % 68.8 % (42.8-82.8); PLATELET COUNT 194 K/MM3 (134-434); RBC 4.92 M/mm3 (3.60-5.2); RDW 15.2 % (11.6-15.6); WHITE BLOOD COUNT 7.8 K/mm3 (4.0-10.0)
[2020-03-10 06:35] LABS: ALBUMIN 3.2 g/dl (3.4-5.0); BILIRUBIN,TOTAL 0.6 mg/dL (0.2-1); BLOOD UREA NITROGEN 19.8 mg/dL (7-18); CALCIUM 9.1 mg/dL (8.5-10.1); CREATININE 0.8 mg/dL (0.55-1.3); POTASSIUM 3.6 mmol/L (3.5-5.1); TOT PROT 6.5 g/dl (6.4-8.2)
[2020-03-10] MEDS ORDERED: PT OWN MED DRAWER 7, Y5N ONE (08:48)
[2020-03-10] MEDS: amLODIPine BESYLATE 10 MG TABLET (FP) PO SCH (09:08)
[2020-03-10] MEDS: NICOTINE 14 MG/24 HOURS TOPICAL PATCH TD SCH (09:08)
[2020-03-10] MEDS: BUDESONIDE/FORMETEROL FUMARATE 80/4.5 mcg INHALER IH SCH ×2 (09:09→22:08)
[2020-03-10] MEDS: APIXABAN 5 MG TABLET PO SCH ×2 (09:09→22:08)
[2020-03-10] MEDS ORDERED: FUROSEMIDE 40 MG TABLET (FP) PO SCH (10:00)
--- NOTE | 2020-03-10 12:04 | PN ---
Progress Note, Physician Chief Complaint: Cardiology for Dr. Blackmon History of Present Illness: Denies chest pain or dyspnea, OOB in chair, ambulates with walker assistance. - Current Medication List Current Medications: Active Medications Albuterol/Ipratropium (Duoneb -) 1 amp NEB Q6H PRN PRN Reason: SHORTNESS OF BREATH Amlodipine Besylate (Norvasc -) 10 mg PO DAILY [facility] Last Admin: 03/10/20 09:08 Dose: 10 mg Documented by: Apixaban (Eliquis -) 5 mg PO BID [facility] Last Admin: 03/10/20 09:09 Dose: 5 mg Documented by: Atorvastatin Calcium (Lipitor -) 80 mg PO [facility] Last Admin: 03/09/20 21:31 Dose: 80 mg Documented by: Budesonide/Formoterol Fumarate (Symbicort 80/4.5mcg -) 2 puff IH BID [facility] Last Admin: 03/10/20 09:09 Dose: 2 puff Documented by: Furosemide (Lasix -) 40 mg PO DAILY [facility] Last Admin: 03/10/20 09:09 Dose: 40 mg Documented by: Montelukast Sodium (Singulair -) 10 mg PO HS [facility] Last Admin: 03/09/20 21:31 Dose: 10 mg Documented by: Nicotine (Nicoderm Patch -) 14 mg TD DAILY [facility] Last Admin: 03/10/20 09:08 Dose: 14 mg Documented by: - Objective Vital Signs: Vital Signs Temperature 98 F 03/10/20 10:00 Pulse Rate 68 03/10/20 10:00 Respiratory Rate 18 03/10/20 10:00 Blood Pressure 171/63 H 03/10/20 10:00 O2 Sat by Pulse Oximetry (%) 98 03/10/20 10:00 Constitutional: Yes: No Distress, Calm, Thin Neck: Yes: Supple Cardiovascular: Yes: Regular Rate and Rhythm Respiratory: Yes: Regular, CTA Bilaterally Gastrointestinal: Yes: Normal Bowel Sounds, Soft Edema: No Labs: CBC, BMP 03/10/20 05:35 03/10/20 05:35 Problem List - Problems (1) CHF (congestive heart failure) Code(s): I50.9 - HEART FAILURE, UNSPECIFIED Qualifiers: Heart failure type: diastolic Heart failure chronicity: acute on chronic Qualified Code(s): I50.33 - Acute on chronic diastolic (congestive) heart failure (2) HLD (hyperlipidemia) Code(s): E78.5 - HYPERLIPIDEMIA, UNSPECIFIED Qualifiers: Hyperlipidemia type: pure hypercholesterolemia Qualified Code(s): E78.00 - Pure hypercholesterolemia, unspecified; E78.0 - Pure hypercholesterolemia (3) HTN (hypertension) Code(s): I10 - ESSENTIAL (PRIMARY) HYPERTENSION Qualifiers: Hypertension type: essential hypertension Qualified Code(s): I10 - Essential (primary) hypertension (4) Hyponatremia Code(s): E87.1 - HYPO-OSMOLALITY AND HYPONATREMIA (5) Demand ischemia Code(s): I24.8 - OTHER FORMS OF ACUTE ISCHEMIC HEART DISEASE Assessment/Plan 03/06/2020 Echo: Normal biventricular size and fxn mild-mod AR Problem List - Problems (1) Elevated troponin Code(s): R79.89 - OTHER SPECIFIED ABNORMAL FINDINGS OF BLOOD CHEMISTRY (2) Heart failure Code(s): I50.9 - HEART FAILURE, UNSPECIFIED Qualifiers: Heart failure type: unspecified Heart failure chronicity: unspecified Qualified Code(s): I50.9 - Heart failure, unspecified (3) Hypoxia Code(s): R09.02 - HYPOXEMIA Assessment/Plan COPD; multiple lung nodules Long-term cigarette smoker. Acute on chronic diastolic CHF; ?old anterior infarct by EKG. HTN HLD elevated TNI -> demand ischemia Remote DVT Hyponatremia improving Plan: Obtain prior medical records. Nicotine patch (pt agrees). Workup of lung findings; r/o malignancy. Lexiscan MIBI; pt ambulates with walker assistance Continue Norvasc 10 qd, Eliquis 5 bid, Lipitor 80 qhs, Lasix 40 qd, add Diovan 80 qd
[2020-03-10] MEDS: VALSARTAN 80 MG TABLET (UD) PO SCH (13:55)
[2020-03-10] MEDS ORDERED: POLYETHYLENE GLYCOL 3350 119 GM BTL PO ONE ×2 (15:00)
--- NOTE | 2020-03-10 15:28 | PN ---
Progress Note, Physician History of Present Illness: Pt seen and examined at bedside. She denies shortness of breath. - Current Medication List Current Medications: Active Medications Albuterol/Ipratropium (Duoneb -) 1 amp NEB Q6H PRN PRN Reason: SHORTNESS OF BREATH Amlodipine Besylate (Norvasc -) 10 mg PO DAILY [facility] Last Admin: 03/10/20 09:08 Dose: 10 mg Documented by: Apixaban (Eliquis -) 5 mg PO BID [facility] Last Admin: 03/10/20 09:09 Dose: 5 mg Documented by: Atorvastatin Calcium (Lipitor -) 80 mg PO [facility] Last Admin: 03/09/20 21:31 Dose: 80 mg Documented by: Budesonide/Formoterol Fumarate (Symbicort 80/4.5mcg -) 2 puff IH BID [facility] Last Admin: 03/10/20 09:09 Dose: 2 puff Documented by: Furosemide (Lasix -) 40 mg PO DAILY [facility] Last Admin: 03/10/20 09:09 Dose: 40 mg Documented by: Montelukast Sodium (Singulair -) 10 mg PO [facility] Last Admin: 03/09/20 21:31 Dose: 10 mg Documented by: Nicotine (Nicoderm Patch -) 14 mg TD DAILY [facility] Last Admin: 03/10/20 09:08 Dose: 14 mg Documented by: Valsartan (Diovan -) 80 mg PO DAILY [facility] Last Admin: 03/10/20 13:55 Dose: 80 mg Documented by: - Objective Vital Signs: Vital Signs Temperature 98.4 F 03/10/20 14:00 Pulse Rate 77 03/10/20 14:00 Respiratory Rate 18 03/10/20 14:00 Blood Pressure 154/71 03/10/20 14:00 O2 Sat by Pulse Oximetry (%) 96 03/10/20 14:00 Constitutional: Yes: Calm Eyes: Yes: Conjunctiva Clear HENT: Yes: Atraumatic Neck: Yes: Supple Cardiovascular: Yes: S1, S2 Respiratory: Yes: On Nasal O2 Gastrointestinal: Yes: Soft Genitourinary: Yes: Incontinence Musculoskeletal: Yes: WNL Edema: No Labs: CBC, BMP 03/10/20 05:35 03/10/20 05:35 Problem List - Problems (1) Hyponatremia Code(s): E87.1 - HYPO-OSMOLALITY AND HYPONATREMIA (2) Heart failure Code(s): I50.9 - HEART FAILURE, UNSPECIFIED Qualifiers: Heart failure type: unspecified Heart failure chronicity: unspecified Qualified Code(s): I50.9 - Heart failure, unspecified Assessment/Plan Current Medications Generic Name Dose Route Start Last Admin Trade Name Freq PRN Reason Stop Dose Admin Albuterol/Ipratropium 1 amp 03/05/20 22:54 Duoneb - NEB Q6H PRN SHORTNESS OF BREATH Amlodipine Besylate 10 mg 03/10/20 10:00 03/10/20 09:08 Norvasc - PO 10 mg DAILY [facility] Administration Apixaban 5 mg 03/05/20 22:45 03/10/20 09:09 Eliquis - PO 5 mg BID [facility] Administration Atorvastatin Calcium 80 mg 03/06/20 22:00 03/09/20 21:31 Lipitor - PO 80 mg HS [facility] Administration Budesonide/Formoterol Fumarate 2 puff 03/06/20 10:00 03/10/20 09:09 Symbicort 80/4.5mcg - IH 2 puff BID [facility] Administration Furosemide 40 mg 03/10/20 10:00 03/10/20 09:09 Lasix - PO 40 mg DAILY [facility] Administration Montelukast Sodium 10 mg 03/06/20 22:00 03/09/20 21:31 Singulair - PO 10 mg HS [facility] Administration Nicotine 14 mg 03/06/20 13:30 03/10/20 09:08 Nicoderm Patch - TD 14 mg DAILY [facility] Administration Valsartan 80 mg 03/10/20 14:00 03/10/20 13:55 Diovan - PO 80 mg DAILY [facility] Administration Impression 1. hyponatremia 2. chf 3. asthma 4. htn 5. smoker 6. hld Plan - hold lasix - repeat labs in am - restrict free water - monitor bicarb - cont to monitor lytes
[2020-03-10] MEDS: MONTELUKAST NA 10 MG TABLET PO SCH (22:08)
[2020-03-10] MEDS: ATORVASTATIN CA 80 MG TABLET (FP) PO SCH (22:08)
--- NOTE | 2020-03-10 22:51 | PN ---
Progress Note, Physician History of Present Illness: No new complaints - Current Medication List Current Medications: Active Medications Albuterol/Ipratropium (Duoneb -) 1 amp NEB Q6H PRN PRN Reason: SHORTNESS OF BREATH Amlodipine Besylate (Norvasc -) 10 mg PO DAILY [facility] Last Admin: 03/10/20 09:08 Dose: 10 mg Documented by: Apixaban (Eliquis -) 5 mg PO BID [facility] Last Admin: 03/10/20 22:08 Dose: 5 mg Documented by: Atorvastatin Calcium (Lipitor -) 80 mg PO [facility] Last Admin: 03/10/20 22:08 Dose: 80 mg Documented by: Budesonide/Formoterol Fumarate (Symbicort 80/4.5mcg -) 2 puff IH BID [facility] Last Admin: 03/10/20 22:08 Dose: 2 puff Documented by: Montelukast Sodium (Singulair -) 10 mg PO [facility] Last Admin: 03/10/20 22:08 Dose: 10 mg Documented by: Nicotine (Nicoderm Patch -) 14 mg TD DAILY [facility] Last Admin: 03/10/20 09:08 Dose: 14 mg Documented by: Valsartan (Diovan -) 80 mg PO DAILY [facility] Last Admin: 03/10/20 13:55 Dose: 80 mg Documented by: - Objective Vital Signs: Vital Signs Temperature 98 F 03/10/20 18:00 Pulse Rate 70 03/10/20 18:00 Respiratory Rate 18 03/10/20 21:00 Blood Pressure 145/51 L 03/10/20 18:00 O2 Sat by Pulse Oximetry (%) 96 03/10/20 21:00 Cardiovascular: Yes: WNL, Regular Rate and Rhythm Respiratory: Yes: WNL, Regular, CTA Bilaterally Gastrointestinal: Yes: WNL, Normal Bowel Sounds, Soft Edema: No Labs: CBC, BMP 03/10/20 05:35 03/10/20 05:35 Problem List - Problems (1) CHF (congestive heart failure) Code(s): I50.9 - HEART FAILURE, UNSPECIFIED Qualifiers: Heart failure type: diastolic Heart failure chronicity: acute on chronic Qualified Code(s): I50.33 - Acute on chronic diastolic (congestive) heart failure (2) Elevated troponin Code(s): R79.89 - OTHER SPECIFIED ABNORMAL FINDINGS OF BLOOD CHEMISTRY (3) Hypoxia Code(s): R09.02 - HYPOXEMIA (4) DVT (deep venous thrombosis) Code(s): I82.409 - ACUTE EMBOLISM AND THOMBOS UNSP DEEP VN UNSP LOWER EXTREMITY (5) HLD (hyperlipidemia) Code(s): E78.5 - HYPERLIPIDEMIA, UNSPECIFIED Qualifiers: Hyperlipidemia type: pure hypercholesterolemia Qualified Code(s): E78.00 - Pure hypercholesterolemia, unspecified; E78.0 - Pure hypercholesterolemia (6) HTN (hypertension) Code(s): I10 - ESSENTIAL (PRIMARY) HYPERTENSION Qualifiers: Hypertension type: essential hypertension Qualified Code(s): I10 - Essential (primary) hypertension (7) Hyponatremia Code(s): E87.1 - HYPO-OSMOLALITY AND HYPONATREMIA (8) COPD (chronic obstructive pulmonary disease) Code(s): J44.9 - CHRONIC OBSTRUCTIVE PULMONARY DISEASE, UNSPECIFIED
[2020-03-10] MEDS: DOCUSATE SODIUM 100 MG CAPSULE (FP) PO SCH (23:12)
[2020-03-11] MEDS: DOCUSATE SODIUM 100 MG CAPSULE (FP) PO SCH ×4 (06:46→21:02)
[2020-03-11] MEDS: amLODIPine BESYLATE 10 MG TABLET (FP) PO SCH (09:10)
[2020-03-11] MEDS: VALSARTAN 80 MG TABLET (UD) PO SCH (09:10)
[2020-03-11] MEDS: APIXABAN 5 MG TABLET PO SCH ×2 (09:10→21:02)
[2020-03-11] MEDS: NICOTINE 14 MG/24 HOURS TOPICAL PATCH TD SCH (09:11)
[2020-03-11] MEDS ORDERED: PT OWN MED DRAWER 7, Y5N ONE (09:11)
[2020-03-11] MEDS: BUDESONIDE/FORMETEROL FUMARATE 80/4.5 mcg INHALER IH SCH ×2 (09:11→21:03)
--- NOTE | 2020-03-11 11:32 | PN ---
Progress Note, Physician Chief Complaint: Cardiology for Dr. Blackmon History of Present Illness: Denies chest pain or dyspnea, OOB in chair, ambulates with walker assistance. - Current Medication List Current Medications: Active Medications Amlodipine Besylate (Norvasc -) 10 mg PO DAILY [facility] Last Admin: 03/11/20 09:10 Dose: 10 mg Documented by: Apixaban (Eliquis -) 5 mg PO BID [facility] Last Admin: 03/11/20 09:10 Dose: 5 mg Documented by: Atorvastatin Calcium (Lipitor -) 80 mg PO [facility] Last Admin: 03/10/20 22:08 Dose: 80 mg Documented by: Budesonide/Formoterol Fumarate (Symbicort 80/4.5mcg -) 2 puff IH BID [facility] Last Admin: 03/11/20 09:11 Dose: 2 puff Documented by: Docusate Sodium (Colace -) 100 mg PO TID [facility] Last Admin: 03/11/20 06:46 Dose: 100 mg Documented by: Montelukast Sodium (Singulair -) 10 mg PO [facility] Last Admin: 03/10/20 22:08 Dose: 10 mg Documented by: Nicotine (Nicoderm Patch -) 14 mg TD DAILY [facility] Last Admin: 03/11/20 09:11 Dose: 14 mg Documented by: Valsartan (Diovan -) 80 mg PO DAILY [facility] Last Admin: 03/11/20 09:10 Dose: 80 mg Documented by: - Objective Vital Signs: Vital Signs Temperature 98.1 F 03/11/20 10:00 Pulse Rate 83 03/11/20 10:00 Respiratory Rate 18 03/11/20 10:00 Blood Pressure 114/62 03/11/20 10:00 O2 Sat by Pulse Oximetry (%) 96 03/11/20 10:09 Constitutional: Yes: No Distress, Calm Neck: Yes: Supple Cardiovascular: Yes: Regular Rate and Rhythm Respiratory: Yes: Regular, CTA Bilaterally Gastrointestinal: Yes: Normal Bowel Sounds, Soft Edema: No Labs: CBC, BMP 03/10/20 05:35 03/10/20 05:35 - ....Imaging Chest X-ray: Report Reviewed (No CHF) EKG: Report Reviewed (Tele: NSR) Problem List - Problems (1) CHF (congestive heart failure) Code(s): I50.9 - HEART FAILURE, UNSPECIFIED Qualifiers: Heart failure type: diastolic Heart failure chronicity: acute on chronic Qualified Code(s): I50.33 - Acute on chronic diastolic (congestive) heart failure (2) HLD (hyperlipidemia) Code(s): E78.5 - HYPERLIPIDEMIA, UNSPECIFIED Qualifiers: Hyperlipidemia type: pure hypercholesterolemia Qualified Code(s): E78.00 - Pure hypercholesterolemia, unspecified; E78.0 - Pure hypercholesterolemia (3) HTN (hypertension) Code(s): I10 - ESSENTIAL (PRIMARY) HYPERTENSION Qualifiers: Hypertension type: essential hypertension Qualified Code(s): I10 - Essential (primary) hypertension (4) Hyponatremia Code(s): E87.1 - HYPO-OSMOLALITY AND HYPONATREMIA (5) Demand ischemia Code(s): I24.8 - OTHER FORMS OF ACUTE ISCHEMIC HEART DISEASE Assessment/Plan 03/06/2020 Echo: Normal biventricular size and fxn mild-mod AR Problem List - Problems (1) Elevated troponin Code(s): R79.89 - OTHER SPECIFIED ABNORMAL FINDINGS OF BLOOD CHEMISTRY (2) Heart failure Code(s): I50.9 - HEART FAILURE, UNSPECIFIED Qualifiers: Heart failure type: unspecified Heart failure chronicity: unspecified Q ualified Code(s): I50.9 - Heart failure, unspecified (3) Hypoxia Code(s): R09.02 - HYPOXEMIA Assessment/Plan COPD; multiple lung nodules Long-term cigarette smoker. Acute on chronic diastolic CHF resolved; ?old anterior infarct by EKG. HTN HLD elevated TNI -> demand ischemia Remote DVT Hyponatremia improving Plan: Obtain prior medical records. Nicotine patch (pt agrees). Workup of lung findings; r/o malignancy. Lexiscan MIBI in AM; pt ambulates with walker assistance Continue Norvasc 10 qd, Eliquis 5 bid, Lipitor 80 qhs, Lasix 40 qd, added Diovan 80 qd
--- NOTE | 2020-03-11 16:09 | PN ---
Progress Note, Physician History of Present Illness: Pt seen and examined at bedside. She is out of bed to chair. She denies shortness of breath. - Current Medication List Current Medications: Active Medications Amlodipine Besylate (Norvasc -) 10 mg PO DAILY [facility] Last Admin: 03/11/20 09:10 Dose: 10 mg Documented by: Apixaban (Eliquis -) 5 mg PO BID [facility] Last Admin: 03/11/20 09:10 Dose: 5 mg Documented by: Atorvastatin Calcium (Lipitor -) 80 mg PO [facility] Last Admin: 03/10/20 22:08 Dose: 80 mg Documented by: Budesonide/Formoterol Fumarate (Symbicort 80/4.5mcg -) 2 puff IH BID [facility] Last Admin: 03/11/20 09:11 Dose: 2 puff Documented by: Docusate Sodium (Colace -) 100 mg PO TID [facility] Last Admin: 03/11/20 13:03 Dose: Not Given Documented by: Montelukast Sodium (Singulair -) 10 mg PO [facility] Last Admin: 03/10/20 22:08 Dose: 10 mg Documented by: Nicotine (Nicoderm Patch -) 14 mg TD DAILY [facility] Last Admin: 03/11/20 09:11 Dose: 14 mg Documented by: Valsartan (Diovan -) 80 mg PO DAILY [facility] Last Admin: 03/11/20 09:10 Dose: 80 mg Documented by: - Objective Vital Signs: Vital Signs Temperature 98.2 F 03/11/20 14:00 Pulse Rate 85 03/11/20 14:00 Respiratory Rate 22 H 03/11/20 14:00 Blood Pressure 115/54 L 03/11/20 14:00 O2 Sat by Pulse Oximetry (%) 97 03/11/20 14:00 Constitutional: Yes: Calm Eyes: Yes: Conjunctiva Clear HENT: Yes: Atraumatic Neck: Yes: Supple Cardiovascular: Yes: S1, S2 Respiratory: Yes: CTA Bilaterally Gastrointestinal: Yes: Normal Bowel Sounds, Soft Genitourinary: Yes: WNL Musculoskeletal: Yes: WNL Edema: No Neurological: Yes: Oriented Psychiatric: Yes: Oriented Labs: CBC, BMP 03/10/20 05:35 03/10/20 05:35 Problem List - Problems (1) Hyponatremia Code(s): E87.1 - HYPO-OSMOLALITY AND HYPONATREMIA (2) Heart failure Code(s): I50.9 - HEART FAILURE, UNSPECIFIED Qualifiers: Heart failure type: unspecified Heart failure chronicity: unspecified Qualified Code(s): I50.9 - Heart failure, unspecified Assessment/Plan Current Medications Generic Name Dose Route Start Last Admin Trade Name Freq PRN Reason Stop Dose Admin Amlodipine Besylate 10 mg 03/10/20 10:00 03/11/20 09:10 Norvasc - PO 10 mg DAILY [facility] Administration Apixaban 5 mg 03/05/20 22:45 03/11/20 09:10 Eliquis - PO 5 mg BID [facility] Administration Atorvastatin Calcium 80 mg 03/06/20 22:00 03/10/20 22:08 Lipitor - PO 80 mg HS [facility] Administration Budesonide/Formoterol Fumarate 2 puff 03/06/20 10:00 03/11/20 09:11 Symbicort 80/4.5mcg - IH 2 puff BID [facility] Administration Docusate Sodium 100 mg 03/10/20 23:00 03/11/20 13:03 Colace - PO Not Given TID [facility] Montelukast Sodium 10 mg 03/06/20 22:00 03/10/20 22:08 Singulair - PO 10 mg HS [facility] Administration Nicotine 14 mg 03/06/20 13:30 03/11/20 09:11 Nicoderm Patch - TD 14 mg DAILY [facility] Administration Valsartan 80 mg 03/10/20 14:00 03/11/20 09:10 Diovan - PO 80 mg DAILY [facility] Administration Impression 1. hyponatremia 2. chf 3. asthma 4. htn 5. smoker 6. hld Plan - check bmp in am - lasix on hold - restrict free water - monitor bicarb - cont to monitor lytes
[2020-03-11] MEDS: MONTELUKAST NA 10 MG TABLET PO SCH (21:02)
[2020-03-11] MEDS: ATORVASTATIN CA 80 MG TABLET (FP) PO SCH (21:02)
--- NOTE | 2020-03-11 22:25 | PN ---
Progress Note, Physician History of Present Illness: Pt denies any SOB - Current Medication List Current Medications: Active Medications Amlodipine Besylate (Norvasc -) 10 mg PO DAILY [facility] Last Admin: 03/11/20 09:10 Dose: 10 mg Documented by: Apixaban (Eliquis -) 5 mg PO BID [facility] Last Admin: 03/11/20 21:02 Dose: 5 mg Documented by: Atorvastatin Calcium (Lipitor -) 80 mg PO [facility] Last Admin: 03/11/20 21:02 Dose: 80 mg Documented by: Budesonide/Formoterol Fumarate (Symbicort 80/4.5mcg -) 2 puff IH BID [facility] Last Admin: 03/11/20 21:03 Dose: 2 puff Documented by: Docusate Sodium (Colace -) 100 mg PO TID [facility] Last Admin: 03/11/20 21:02 Dose: 100 mg Documented by: Montelukast Sodium (Singulair -) 10 mg PO [facility] Last Admin: 03/11/20 21:02 Dose: 10 mg Documented by: Nicotine (Nicoderm Patch -) 14 mg TD DAILY [facility] Last Admin: 03/11/20 09:11 Dose: 14 mg Documented by: Valsartan (Diovan -) 80 mg PO DAILY [facility] Last Admin: 03/11/20 09:10 Dose: 80 mg Documented by: - Objective Vital Signs: Vital Signs Temperature 98.4 F 03/11/20 21:56 Pulse Rate 72 03/11/20 21:56 Respiratory Rate 20 03/11/20 21:56 Blood Pressure 112/57 L 03/11/20 21:56 O2 Sat by Pulse Oximetry (%) 98 03/11/20 21:56 Neck: Yes: WNL, Supple Cardiovascular: Yes: WNL, Regular Rate and Rhythm Respiratory: Yes: WNL, Regular, CTA Bilaterally Gastrointestinal: Yes: WNL, Normal Bowel Sounds, Soft Edema: No Labs: CBC, BMP 03/10/20 05:35 03/10/20 05:35 Problem List - Problems (1) CHF (congestive heart failure) Assessment/Plan: Lasix on hold Monitor electrolytes Code(s): I50.9 - HEART FAILURE, UNSPECIFIED Qualifiers: Heart failure type: diastolic Heart failure chronicity: acute on chronic Qualified Code(s): I50.33 - Acute on chronic diastolic (congestive) heart failure (2) Elevated troponin Assessment/Plan: Due to demand ischemia Stress test in am Code(s): R79.89 - OTHER SPECIFIED ABNORMAL FINDINGS OF BLOOD CHEMISTRY (3) Hypoxia Assessment/Plan: Due to CHF Code(s): R09.02 - HYPOXEMIA (4) DVT (deep venous thrombosis) Assessment/Plan: ?Will continue Eliquis and check h/o DVT LLE doppler was negative for DVT Code(s): I82.409 - ACUTE EMBOLISM AND THOMBOS UNSP DEEP VN UNSP LOWER EXTREMITY (5) HLD (hyperlipidemia) Assessment/Plan: Cont lipitor Code(s): E78.5 - HYPERLIPIDEMIA, UNSPECIFIED Qualifiers: Hyperlipidemia type: pure hypercholesterolemia Qualified Code(s): E78.00 - Pure hypercholesterolemia, unspecified; E78.0 - Pure hypercholesterolemia (6) HTN (hypertension) Assessment/Plan: BP stable Cont diovan/norvasc Code(s): I10 - ESSENTIAL (PRIMARY) HYPERTENSION Qualifiers: Hypertension type: essential hypertension Qualified Code(s): I10 - Essential (primary) hypertension (7) Hyponatremia Assessment/Plan: Water restriction Code(s): E87.1 - HYPO-OSMOLALITY AND HYPONATREMIA (8) COPD (chronic obstructive pulmonary disease) Assessment/Plan: Cont inhalers Tobacco cessation Repeat CT scan chest in 3 months Code(s): J44.9 - CHRONIC OBSTRUCTIVE PULMONARY DISEASE, UNSPECIFIED
[2020-03-12] MEDS: DOCUSATE SODIUM 100 MG CAPSULE (FP) PO SCH ×3 (05:56→23:05)
--- NOTE | 2020-03-12 10:31 | PN ---
Progress Note, Physician Chief Complaint: Pt A&Ox3; no chest pain or duyspnea; wants to eat breakfast (held due to stress MIBI). History of Present Illness: The patient is a 69 year old female with a significant past medical history of asthma, LLE angioplasty, HTN, HLD who presents to the ED for evaluation of hypoxia that began today. She was sent from her PCPs office who discovered the hypoxia when she was in the office for left lower extremity edema that began three weeks ago. Her O2 sat was reportedly 80%. Her PCP administered 150mg of Lovenox, performed and EKG and sent the pt to the ED. The patient denies fever, chills, sob, CP. She denies dizziness, headache, focal weakness/numbness, abd pain, urinary sxs. Surgical Hx: appendectomy, bilateral knee arthroscopy Social Hx: Patient reports smoking 4-5 cigarettes per day for 50 years. Allergies: NKDA, tomatoes PCP: Timothy Bolivar - Current Medication List Current Medications: Active Medications Amlodipine Besylate (Norvasc -) 10 mg PO DAILY [facility] Last Admin: 03/11/20 09:10 Dose: 10 mg Documented by: Apixaban (Eliquis -) 5 mg PO BID [facility] Last Admin: 03/11/20 21:02 Dose: 5 mg Documented by: Atorvastatin Calcium (Lipitor -) 80 mg PO [facility] Last Admin: 03/11/20 21:02 Dose: 80 mg Documented by: Budesonide/Formoterol Fumarate (Symbicort 80/4.5mcg -) 2 puff IH BID [facility] Last Admin: 03/11/20 21:03 Dose: 2 puff Documented by: Docusate Sodium (Colace -) 100 mg PO TID [facility] Last Admin: 03/12/20 05:56 Dose: Not Given Documented by: Montelukast Sodium (Singulair -) 10 mg PO HS [facility] Last Admin: 03/11/20 21:02 Dose: 10 mg Documented by: Nicotine (Nicoderm Patch -) 14 mg TD DAILY [facility] Last Admin: 03/11/20 09:11 Dose: 14 mg Documented by: Valsartan (Diovan -) 80 mg PO DAILY [facility] Last Admin: 03/11/20 09:10 Dose: 80 mg Documented by: - Objective Vital Signs: Vital Signs Temperature 98.4 F 03/12/20 05:48 Pulse Rate 74 03/12/20 09:00 Respiratory Rate 20 03/12/20 09:00 Blood Pressure 115/81 03/12/20 09:00 O2 Sat by Pulse Oximetry (%) 95 03/12/20 10:00 Eyes: Yes: WNL, Conjunctiva Clear, EOM Intact HENT: Yes: WNL, Atraumatic, Normocephalic Neck: Yes: WNL, Supple, Trachea Midline Cardiovascular: Yes: WNL, Regular Rate and Rhythm Respiratory: Yes: WNL, Regular, CTA Bilaterally Gastrointestinal: Yes: WNL, Normal Bowel Sounds Genitourinary: Yes: WNL Musculoskeletal: Yes: WNL Extremities: Yes: WNL Edema: No Integumentary: Yes: WNL Neurological: Yes: WNL, Alert, Oriented ...Motor Strength: WNL Psychiatric: Yes: WNL Labs: CBC, BMP 03/10/20 05:35 03/10/20 05:35 Problem List - Problems (1) Elevated troponin Code(s): R79.89 - OTHER SPECIFIED ABNORMAL FINDINGS OF BLOOD CHEMISTRY (2) Heart failure Code(s): I50.9 - HEART FAILURE, UNSPECIFIED Qualifiers: Heart failure type: unspecified Heart failure chronicity: unspecified Qualified Code(s): I50.9 - Heart failure, unspecified (3) Hypoxia Code(s): R09.02 - HYPOXEMIA Assessment/Plan COPD; multiple lung nodules Long-term cigarette smoker. Acute on chronic diastolic CHF resolved; ?old anterior infarct by EKG. HTN HLD elevated TNI -> demand ischemia Remote DVT Hyponatremia improving Plan: Obtain prior medical records. Nicotine patch (pt agrees). Workup of lung findings; r/o malignancy. Lexiscan MIBI negative. Continue Norvasc 10 qd, Eliquis 5 bid, Lipitor 80 qhs, Lasix 40 qd, added Diovan 80 qd. Cardiac sanchez stable. May be followed as outpatient with dr. Jillian mark time spent 36 min
[2020-03-12] MEDS ORDERED: REGADENOSON 0.4 MG/5 ML PRE-FILLED SYRINGE IVPUSH ONE ×2 (11:04→11:15)
--- NOTE | 2020-03-12 13:25 | PN ---
Progress Note (short form) - Note Progress Note: States breathing continues to improve. No acute events overnight. Intake & Output 03/09/20 03/10/20 03/11/20 03/12/20 23:59 23:59 23:59 23:59 Intake Total 410 610 Output Total 1000 800 Balance 410 -1000 610 -800 Weight 147 lb 11.2 oz 147 lb Last Vital Signs Temp Pulse Resp BP Pulse Ox 98.4 F 74 20 115/81 95 03/12/20 05:48 03/12/20 09:00 03/12/20 09:00 03/12/20 09:00 03/12/20 10:00 Active Medications Amlodipine Besylate (Norvasc -) 10 mg PO DAILY [facility] Last Admin: 03/11/20 09:10 Dose: 10 mg Documented by: Apixaban (Eliquis -) 5 mg PO BID [facility] Last Admin: 03/11/20 21:02 Dose: 5 mg Documented by: Atorvastatin Calcium (Lipitor -) 80 mg PO [facility] Last Admin: 03/11/20 21:02 Dose: 80 mg Documented by: Budesonide/Formoterol Fumarate (Symbicort 80/4.5mcg -) 2 puff IH BID [facility] Last Admin: 03/11/20 21:03 Dose: 2 puff Documented by: Docusate Sodium (Colace -) 100 mg PO TID [facility] Last Admin: 03/12/20 05:56 Dose: Not Given Documented by: Montelukast Sodium (Singulair -) 10 mg PO [facility] Last Admin: 03/11/20 21:02 Dose: 10 mg Documented by: Nicotine (Nicoderm Patch -) 14 mg TD DAILY [facility] Last Admin: 03/11/20 09:11 Dose: 14 mg Documented by: Valsartan (Diovan -) 80 mg PO DAILY [facility] Last Admin: 03/11/20 09:10 Dose: 80 mg Documented by: Gen: NAD at rest Heart: RRR Lung: decreased breath sounds at the bases Abd: soft, nontender Ext: less edema A/P Acute on Chronic Diastolic Heart Failure +Troponins likely Demand Ischemia Hyponatremia HTN Hyperlipidemia PAD Asthma/Likely COPD Smoker - lasix - monitor urine output, creatinine - daily weights - monitor lytes with diuresis - O2 to keep Spo2 >90%, when ready for discharge will need to check ambulatory spO2 on room air to assess for home O2 - inhaled bronchodilators - smoking cessation discussed - DVT prophylaxis Dr Godinez
[2020-03-12] MEDS: VALSARTAN 80 MG TABLET (UD) PO SCH (13:32)
[2020-03-12] MEDS: BUDESONIDE/FORMETEROL FUMARATE 80/4.5 mcg INHALER IH SCH ×2 (13:32→23:04)
[2020-03-12] MEDS: APIXABAN 5 MG TABLET PO SCH ×2 (13:32→23:05)
[2020-03-12] MEDS: amLODIPine BESYLATE 10 MG TABLET (FP) PO SCH (13:32)
[2020-03-12 13:54] LABS: BASO % 0.7 % (0-2.0); EOS % 1.2 % (0-4.5); HEMATOCRIT 44.5 % (32.4-45.2); HEMOGLOBIN 14.4 GM/dL (10.7-15.3); LYMPH % 22.3 % (8-40); MCH 28.3 pg (25.7-33.7); MCHC 32.4 g/dl (32.0-36.0); MEAN CELL VOLUME 87.3 fl (80-96); MEAN PLT VOLUME 6.8 fl (7.5-11.1); MONO % 9.3 % (3.8-10.2); NEUT % 66.5 % (42.8-82.8); PLATELET COUNT 217 K/MM3 (134-434); RDW 15.2 % (11.6-15.6)
[2020-03-12 14:26] LABS: ALBUMIN 3.6 g/dl (3.4-5.0); BILIRUBIN,TOTAL 0.8 mg/dL (0.2-1); BLOOD UREA NITROGEN 22.7 mg/dL (7-18); CREATININE 0.8 mg/dL (0.55-1.3); POTASSIUM 4.5 mmol/L (3.5-5.1); TOT PROT 7.4 g/dl (6.4-8.2)
[2020-03-12] MEDS: NICOTINE 14 MG/24 HOURS TOPICAL PATCH TD SCH (14:48)
--- NOTE | 2020-03-12 18:00 | PDOC ---
Documentation entered by Ervin Buckner SCRIBE, acting as scribe for Shelbie Rice MD. Shelbie Rice MD: This documentation has been prepared by the yunioribe, Ervin Buckner SCRIBE, under my direction and personally reviewed by me in its entirety. I confirm that the documentation accurately reflects all work, treatment, procedures, and medical decision making performed by me. Attending Attestation - Resident Resident Name: [facility] ED Attending Attestation I have performed the following: I have examined & evaluated the patient, The case was reviewed & discussed with the resident, I agree w/resident's findings & plan, Exceptions are as noted - HPI HPI: 03/05/20 14:26 The patient is a 69 year old female with a significant past medical history of asthma, LLE angioplasty, HTN, HLD who presents to the ED for evaluation of hypoxia that began today. She was sent from her PCPs office who discovered the hypoxia when she was in the office for left lower extremity edema that began three weeks ago. Her O2 sat was reportedly 80%. Her PCP administered 150mg of Lovenox, performed and EKG and sent the pt to the ED. The patient denies fever, chills, sob, CP. She denies dizziness, headache, focal weakness/numbness, abd pain, urinary sxs. Surgical Hx: appendectomy, bilateral knee arthroscopy Social Hx: Patient reports smoking 4-5 cigarettes per day for 50 years. Allergies: NKDA, tomatoes PCP: Timothy Bolivar - Physicial Exam PE: 03/05/20 12:14 Agree w resident exam Elderly female, NAD distress with mild tachypnea to 20s Lungs with mild diffusely diminished BS - Medical Decision Making 69yo F presents to the ED with SOB and hypoxia Not in respiratory distress but hypoxic to 80s w/o nasal cannula DDx includes covid vs copd vs chf vs pna vs PE plan for labs, cxr, cta, monitoring, anticipate admission Discharge - Discharge Information Problems reviewed: Yes Clinical Impression/Diagnosis: Elevated troponin, Hypoxia Heart failure Qualifiers: Heart failure type: unspecified Heart failure chronicity: unspecified Qualified Code(s): I50.9 - Heart failure, unspecified Condition: Good Disposition: VNS/HOME HEALTH CARE - Follow up/Referral - Patient Discharge Instructions - Post Discharge Activity
--- NOTE | 2020-03-12 18:41 | PN ---
Progress Note, Physician History of Present Illness: Pt seen and examined at bedside. She is awake and alert. She denies shortness of breath. - Current Medication List Current Medications: Active Medications Amlodipine Besylate (Norvasc -) 10 mg PO DAILY [facility] Last Admin: 03/12/20 13:32 Dose: 10 mg Documented by: Apixaban (Eliquis -) 5 mg PO BID [facility] Last Admin: 03/12/20 13:32 Dose: 5 mg Documented by: Atorvastatin Calcium (Lipitor -) 80 mg PO [facility] Last Admin: 03/11/20 21:02 Dose: 80 mg Documented by: Budesonide/Formoterol Fumarate (Symbicort 80/4.5mcg -) 2 puff IH BID [facility] Last Admin: 03/12/20 13:32 Dose: 2 puff Documented by: Docusate Sodium (Colace -) 100 mg PO TID [facility] Last Admin: 03/12/20 13:32 Dose: Not Given Documented by: Montelukast Sodium (Singulair -) 10 mg PO [facility] Last Admin: 03/11/20 21:02 Dose: 10 mg Documented by: Nicotine (Nicoderm Patch -) 14 mg TD DAILY [facility] Last Admin: 03/12/20 14:48 Dose: Not Given Documented by: Valsartan (Diovan -) 80 mg PO DAILY [facility] Last Admin: 03/12/20 13:32 Dose: 80 mg Documented by: - Objective Vital Signs: Vital Signs Temperature 98.4 F 03/12/20 17:27 Pulse Rate 84 03/12/20 17:27 Respiratory Rate 20 03/12/20 17:27 Blood Pressure 102/47 L 03/12/20 17:27 O2 Sat by Pulse Oximetry (%) 95 03/12/20 10:00 Constitutional: Yes: Calm Eyes: Yes: Conjunctiva Clear HENT: Yes: Atraumatic Neck: Yes: Supple Cardiovascular: Yes: S1, S2 Respiratory: Yes: CTA Bilaterally Genitourinary: Yes: WNL Musculoskeletal: Yes: WNL Edema: No Neurological: Yes: Oriented Psychiatric: Yes: Oriented Labs: CBC, BMP 03/12/20 13:23 03/12/20 13:23 Problem List - Problems (1) Hyponatremia Code(s): E87.1 - HYPO-OSMOLALITY AND HYPONATREMIA (2) Heart failure Code(s): I50.9 - HEART FAILURE, UNSPECIFIED Qualifiers: Heart failure type: unspecified Heart failure chronicity: unspecified Qualified Code(s): I50.9 - Heart failure, unspecified Assessment/Plan Current Medications Generic Name Dose Route Start Last Admin Trade Name Vladimir PRN Reason Stop Dose Admin Amlodipine Besylate 10 mg 03/10/20 10:00 03/12/20 13:32 Norvasc - PO 10 mg DAILY [facility] Administration Apixaban 5 mg 03/05/20 22:45 03/12/20 13:32 Eliquis - PO 5 mg BID [facility] Administration Atorvastatin Calcium 80 mg 03/06/20 22:00 03/11/20 21:02 Lipitor - PO 80 mg HS [facility] Administration Budesonide/Formoterol Fumarate 2 puff 03/06/20 10:00 03/12/20 13:32 Symbicort 80/4.5mcg - IH 2 puff BID [facility] Administration Docusate Sodium 100 mg 03/10/20 23:00 03/12/20 13:32 Colace - PO Not Given TID [facility] Montelukast Sodium 10 mg 03/06/20 22:00 03/11/20 21:02 Singulair - PO 10 mg HS [facility] Administration Nicotine 14 mg 03/06/20 13:30 03/12/20 14:48 Nicoderm Patch - TD Not Given DAILY [facility] Valsartan 80 mg 03/10/20 14:00 03/12/20 13:32 Diovan - PO 80 mg DAILY [facility] Administration Impression 1. hyponatremia 2. chf 3. asthma 4. htn 5. smoker 6. hld Plan - lasix on hold - repeat urine osm and urine sodium today - repeat bmp in am - age appropriate cancer screening - restrict free water - monitor bicarb - cont to monitor lytes
[2020-03-12] MEDS ORDERED: PT OWN MED DRAWER 7, Y5N ONE (21:55)
--- NOTE | 2020-03-12 21:58 | PN ---
Progress Note, Physician History of Present Illness: No new complaints - Current Medication List Current Medications: Active Medications Amlodipine Besylate (Norvasc -) 10 mg PO DAILY [facility] Last Admin: 03/12/20 13:32 Dose: 10 mg Documented by: Apixaban (Eliquis -) 5 mg PO BID [facility] Last Admin: 03/12/20 13:32 Dose: 5 mg Documented by: Atorvastatin Calcium (Lipitor -) 80 mg PO HS [facility] Last Admin: 03/11/20 21:02 Dose: 80 mg Documented by: Budesonide/Formoterol Fumarate (Symbicort 80/4.5mcg -) 2 puff IH BID [facility] Last Admin: 03/12/20 13:32 Dose: 2 puff Documented by: Docusate Sodium (Colace -) 100 mg PO TID [facility] Last Admin: 03/12/20 13:32 Dose: Not Given Documented by: Montelukast Sodium (Singulair -) 10 mg PO HS [facility] Last Admin: 03/11/20 21:02 Dose: 10 mg Documented by: Nicotine (Nicoderm Patch -) 14 mg TD DAILY [facility] Last Admin: 03/12/20 14:48 Dose: Not Given Documented by: Valsartan (Diovan -) 80 mg PO DAILY [facility] Last Admin: 03/12/20 13:32 Dose: 80 mg Documented by: - Objective Vital Signs: Vital Signs Temperature 98.7 F 03/12/20 21:19 Pulse Rate 81 03/12/20 21:19 Respiratory Rate 20 03/12/20 21:19 Blood Pressure 102/47 L 03/12/20 17:27 O2 Sat by Pulse Oximetry (%) 95 03/12/20 10:00 Cardiovascular: Yes: WNL, Regular Rate and Rhythm Respiratory: Yes: WNL, Regular, CTA Bilaterally Gastrointestinal: Yes: WNL, Normal Bowel Sounds, Soft Edema: No Labs: CBC, BMP 03/12/20 13:23 03/12/20 13:23 Problem List - Problems (1) CHF (congestive heart failure) Assessment/Plan: Lasix on hold Monitor electrolytes Code(s): I50.9 - HEART FAILURE, UNSPECIFIED Qualifiers: Heart failure type: diastolic Heart failure chronicity: acute on chronic Qualified Code(s): I50.33 - Acute on chronic diastolic (congestive) heart failure (2) Elevated troponin Assessment/Plan: Due to demand ischemia Stress test pending Possible dc planning for am Code(s): R79.89 - OTHER SPECIFIED ABNORMAL FINDINGS OF BLOOD CHEMISTRY (3) COPD (chronic obstructive pulmonary disease) Assessment/Plan: Cont inhalers Tobacco cessation/nicoderm patch Repeat CT scan chest in 3 months Code(s): J44.9 - CHRONIC OBSTRUCTIVE PULMONARY DISEASE, UNSPECIFIED (4) Hypoxia Assessment/Plan: Due to CHF Code(s): R09.02 - HYPOXEMIA (5) DVT (deep venous thrombosis) Assessment/Plan: ?Will continue Eliquis and check h/o DVT LLE doppler was negative for DVT Code(s): I82.409 - ACUTE EMBOLISM AND THOMBOS UNSP DEEP VN UNSP LOWER EXTREMITY (6) HLD (hyperlipidemia) Assessment/Plan: Cont lipitor Code(s): E78.5 - HYPERLIPIDEMIA, UNSPECIFIED Qualifiers: Hyperlipidemia type: pure hypercholesterolemia Qualified Code(s): E78.00 - Pure hypercholesterolemia, unspecified; E78.0 - Pure hypercholesterolemia (7) HTN (hypertension) Assessment/Plan: BP stable Cont diovan/norvasc Code(s): I10 - ESSENTIAL (PRIMARY) HYPERTENSION Qualifiers: Hypertension type: essential hypertension Qualified Code(s): I10 - Essential (primary) hypertension (8) Hyponatremia Assessment/Plan: Water restriction Code(s): E87.1 - HYPO-OSMOLALITY AND HYPONATREMIA
[2020-03-12] MEDS: ATORVASTATIN CA 80 MG TABLET (FP) PO SCH (23:05)
[2020-03-12] MEDS: MONTELUKAST NA 10 MG TABLET PO SCH (23:05)
[2020-03-13] MEDS: DOCUSATE SODIUM 100 MG CAPSULE (FP) PO SCH ×3 (05:06→22:01)
[2020-03-13 06:33] LABS: ALBUMIN 2.9 g/dl (3.4-5.0); BILIRUBIN,TOTAL 0.5 mg/dL (0.2-1); BLOOD UREA NITROGEN 27.8 mg/dL (7-18); CALCIUM 8.6 mg/dL (8.5-10.1); CREATININE 0.8 mg/dL (0.55-1.3); TOT PROT 6.1 g/dl (6.4-8.2)
[2020-03-13] MEDS: amLODIPine BESYLATE 10 MG TABLET (FP) PO SCH (09:13)
[2020-03-13] MEDS: APIXABAN 5 MG TABLET PO SCH ×2 (09:13→22:01)
[2020-03-13] MEDS: VALSARTAN 80 MG TABLET (UD) PO SCH (09:13)
[2020-03-13] MEDS: BUDESONIDE/FORMETEROL FUMARATE 80/4.5 mcg INHALER IH SCH ×2 (09:13→22:02)
[2020-03-13] MEDS: NICOTINE 14 MG/24 HOURS TOPICAL PATCH TD SCH (12:51)
--- NOTE | 2020-03-13 13:28 | DS ---
Physical Examination Vital Signs: Vital Signs Temperature 96.4 F L 03/13/20 10:00 Pulse Rate 76 03/13/20 10:00 Respiratory Rate 20 03/13/20 10:00 Blood Pressure 113/59 L 03/13/20 10:00 O2 Sat by Pulse Oximetry (%) 99 03/13/20 10:00 Labs: CBC, BMP 03/12/20 13:23 03/13/20 05:35 Discharge Summary Problems reviewed: Yes Reason For Visit: HEART FAILURE Current Active Problems Asthma (Acute) CHF (congestive heart failure) (Acute) COPD (chronic obstructive pulmonary disease) (Acute) DVT (deep venous thrombosis) (Acute) Demand ischemia (Acute) Elevated troponin (Acute) HLD (hyperlipidemia) (Acute) HTN (hypertension) (Acute) Heart failure (Acute) Hyponatremia (Acute) Hypoxia (Acute) Hospital Course: vv Condition: Good - Instructions Diet, Activity, Other Instructions: 2 gram sodium diet Restrict fluids to 1 liter a day until you see Dr Timothy Bolivar See Dr Timothy Bolivar in 1 week Referrals: Timothy Bolivar MD [Staff Physician] - Disposition: VNS/HOME HEALTH CARE - Home Medications Comprehensive Discharge Medication List: Ambulatory Orders Albuterol Sulfate Inhaler - [Ventolin HFA Inhaler -] 1 - 2 inh PO PRN 11/29/14 Apixaban [Eliquis -] 5 mg PO BID 03/05/20 Atorvastatin Ca [Lipitor] 80 mg PO HS 03/05/20 Budesonide/Formoterol Fumarate [Budesonide-Formoterol 80-4.5] 2 puff IH BID 03/05/20 Furosemide [Lasix] 20 mg PO DAILY 03/05/20 Montelukast Na [Singulair -] 10 mg PO HS 03/05/20 Amlodipine Besylate [Norvasc -] 10 mg PO DAILY #30 tablet 03/13/20 Docusate Sodium [Colace -] 100 mg PO TID #90 capsule 03/13/20 Nicotine Patch [Nicoderm Patch -] 14 mg TD DAILY #30 patch 03/13/20 Valsartan [Diovan] 80 mg PO DAILY #30 tablet 03/13/20
--- NOTE | 2020-03-13 13:37 | PN ---
Progress Note (short form) - Note Progress Note: States breathing continues to improve. Ambulating with PT. No acute events overnight. Intake & Output 03/10/20 03/11/20 03/12/20 03/13/20 23:59 23:59 23:59 23:59 Intake Total 610 Output Total 1000 800 Balance -1000 610 -800 Weight 147 lb Last Vital Signs Temp Pulse Resp BP Pulse Ox 96.4 F L 72 15 111/58 L 99 03/13/20 10:00 03/13/20 12:00 03/13/20 12:00 03/13/20 12:00 03/13/20 12:00 Active Medications Amlodipine Besylate (Norvasc -) 10 mg PO DAILY [facility] Last Admin: 03/13/20 09:13 Dose: 10 mg Documented by: Apixaban (Eliquis -) 5 mg PO BID [facility] Last Admin: 03/13/20 09:13 Dose: 5 mg Documented by: Atorvastatin Calcium (Lipitor -) 80 mg PO [facility] Last Admin: 03/12/20 23:05 Dose: 80 mg Documented by: Budesonide/Formoterol Fumarate (Symbicort 80/4.5mcg -) 2 puff IH BID [facility] Last Admin: 03/13/20 09:13 Dose: 2 puff Documented by: Docusate Sodium (Colace -) 100 mg PO TID [facility] Last Admin: 03/13/20 05:06 Dose: Not Given Documented by: Montelukast Sodium (Singulair -) 10 mg PO [facility] Last Admin: 03/12/20 23:05 Dose: 10 mg Documented by: Nicotine (Nicoderm Patch -) 14 mg TD DAILY [facility] Last Admin: 03/13/20 12:51 Dose: 14 mg Documented by: Valsartan (Diovan -) 80 mg PO DAILY [facility] Last Admin: 03/13/20 09:13 Dose: 80 mg Documented by: Gen: NAD at rest Heart: RRR Lung: decreased breath sounds at the bases Abd: soft, nontender Ext: less edema Laboratory Results - last 24 hr 03/12/20 03/12/20 03/13/20 13:23 13:23 05:35 WBC 10.0 RBC 5.10 Hgb 14.4 Hct 44.5 MCV 87.3 MCH 28.3 MCHC 32.4 RDW 15.2 Plt Count 217 MPV 6.8 L Absolute Neuts (auto) 6.7 Neutrophils % 66.5 Lymphocytes % 22.3 Monocytes % 9.3 Eosinophils % 1.2 Basophils % 0.7 Nucleated RBC % 0 Sodium 130 L 131 L Potassium 4.5 4.0 Chloride 89 L 91 L Carbon Dioxide 34 H 33 H Anion Gap 8 7 L BUN 22.7 H 27.8 H Creatinine 0.8 0.8 Est GFR (CKD-EPI)AfAm 87.18 87.18 Est GFR (CKD-EPI)NonAf 75.22 75.22 Random Glucose 84 112 H Serum Osmolality 273 L Calcium 10.0 8.6 Total Bilirubin 0.8 0.5 AST 29 25 ALT 26 28 Alkaline Phosphatase 105 94 Total Protein 7.4 6.1 L Albumin 3.6 2.9 L A/P Acute on Chronic Diastolic Heart Failure +Troponins likely Demand Ischemia Hyponatremia HTN Hyperlipidemia PAD Asthma/Likely COPD Smoker - lasix - monitor urine output, creatinine - daily weights - monitor lytes with diuresis - O2 to keep Spo2 >90%, Check Pre and Post ambulation saturation - inhaled bronchodilators - smoking cessation discussed - DVT prophylaxis Dr Godinez
--- NOTE | 2020-03-13 14:56 | PN ---
Progress Note, Physician History of Present Illness: Pt seen and examined at bedside. She is awake and alert. She denies shortness of breath. - Current Medication List Current Medications: Active Medications Amlodipine Besylate (Norvasc -) 10 mg PO DAILY [facility] Last Admin: 03/13/20 09:13 Dose: 10 mg Documented by: Apixaban (Eliquis -) 5 mg PO BID [facility] Last Admin: 03/13/20 09:13 Dose: 5 mg Documented by: Atorvastatin Calcium (Lipitor -) 80 mg PO [facility] Last Admin: 03/12/20 23:05 Dose: 80 mg Documented by: Budesonide/Formoterol Fumarate (Symbicort 80/4.5mcg -) 2 puff IH BID [facility] Last Admin: 03/13/20 09:13 Dose: 2 puff Documented by: Docusate Sodium (Colace -) 100 mg PO TID [facility] Last Admin: 03/13/20 05:06 Dose: Not Given Documented by: Montelukast Sodium (Singulair -) 10 mg PO [facility] Last Admin: 03/12/20 23:05 Dose: 10 mg Documented by: Nicotine (Nicoderm Patch -) 14 mg TD DAILY [facility] Last Admin: 03/13/20 12:51 Dose: 14 mg Documented by: Valsartan (Diovan -) 80 mg PO DAILY [facility] Last Admin: 03/13/20 09:13 Dose: 80 mg Documented by: - Objective Vital Signs: Vital Signs Temperature 96.4 F L 03/13/20 10:00 Pulse Rate 72 03/13/20 12:00 Respiratory Rate 15 03/13/20 12:00 Blood Pressure 111/58 L 03/13/20 12:00 O2 Sat by Pulse Oximetry (%) 99 03/13/20 12:00 Constitutional: Yes: Calm Eyes: Yes: Conjunctiva Clear HENT: Yes: Atraumatic Neck: Yes: Supple Cardiovascular: Yes: S1, S2 Respiratory: Yes: CTA Bilaterally Gastrointestinal: Yes: Soft Genitourinary: Yes: WNL Musculoskeletal: Yes: WNL Edema: No Neurological: Yes: Oriented Psychiatric: Yes: Oriented Labs: CBC, BMP 03/12/20 13:23 03/13/20 05:35 Problem List - Problems (1) Hyponatremia Code(s): E87.1 - HYPO-OSMOLALITY AND HYPONATREMIA (2) Heart failure Code(s): I50.9 - HEART FAILURE, UNSPECIFIED Qualifiers: Heart failure type: unspecified Heart failure chronicity: unspecified Qualified Code(s): I50.9 - Heart failure, unspecified Assessment/Plan Current Medications Generic Name Dose Route Start Last Admin Trade Name Freq PRN Reason Stop Dose Admin Amlodipine Besylate 10 mg 03/10/20 10:00 03/13/20 09:13 Norvasc - PO 10 mg DAILY [facility] Administration Apixaban 5 mg 03/05/20 22:45 03/13/20 09:13 Eliquis - PO 5 mg BID [facility] Administration Atorvastatin Calcium 80 mg 03/06/20 22:00 03/12/20 23:05 Lipitor - PO 80 mg HS [facility] Administration Budesonide/Formoterol Fumarate 2 puff 03/06/20 10:00 03/13/20 09:13 Symbicort 80/4.5mcg - IH 2 puff BID [facility] Administration Docusate Sodium 100 mg 03/10/20 23:00 03/13/20 05:06 Colace - PO Not Given TID [facility] Montelukast Sodium 10 mg 03/06/20 22:00 03/12/20 23:05 Singulair - PO 10 mg HS [facility] Administration Nicotine 14 mg 03/06/20 13:30 03/13/20 12:51 Nicoderm Patch - TD 14 mg DAILY [facility] Administration Valsartan 80 mg 03/10/20 14:00 03/13/20 09:13 Diovan - PO 80 mg DAILY [facility] Administration Impression 1. hyponatremia 2. chf 3. asthma 4. htn 5. smoker 6. hld Plan - monitor volume status off of diuretics - may need small dose of lasix every other day - will need outpt follow up - she did not give urine for repeat urine studies - age appropriate cancer screening - restrict free water
--- NOTE | 2020-03-13 21:30 | PN ---
Progress Note, Physician Chief Complaint: Pt A&ox3;sitting up and eating breakfast; no chest pain, dyspnea, or leg discomfort; feels "fine". History of Present Illness: Ms. Aguirre is a 69yo black woman, smoker, who presents with LLE swelling x3 weeks and hypoxia at her PCP's office today. Pt reports three weeks ago she noticed that her LLE was swollen and painful when touched. She states the swelling remained unchanged x 3wks. She went to her PCP's office today and was found to be hypoxic on room air. The low SpO2 + the LLE swelling prompted the PCP (Timothy Bolivar MD) to send pt to ED after giving 150mg Lovenox + performing a 12 lead. Denies hemoptysis, paresthesia in the leg, denies pallor of the extremity. Denies CP but endorses some SOB. She denies recent travel. She denies a h/o blood clots, recent fevers, sore throat, or cough. NKDA. Meds: albuterol, apixaban, atorvastatin, budesonide-formoterol, lasix, losartan + HCTZ, montelukast No history of this before PMH: COPD, HTN, HLD, PVD. She states two years ago she fell; she spent 8 months in 3 different hospitals, and her left leg "has not been the same." She denies any fx or surgery - Current Medication List Current Medications: Active Medications Amlodipine Besylate (Norvasc -) 10 mg PO DAILY [facility] Last Admin: 03/13/20 09:13 Dose: 10 mg Documented by: Apixaban (Eliquis -) 5 mg PO BID [facility] Last Admin: 03/13/20 09:13 Dose: 5 mg Documented by: Atorvastatin Calcium (Lipitor -) 80 mg PO [facility] Last Admin: 03/12/20 23:05 Dose: 80 mg Documented by: Budesonide/Formoterol Fumarate (Symbicort 80/4.5mcg -) 2 puff IH BID [facility] Last Admin: 03/13/20 09:13 Dose: 2 puff Documented by: Docusate Sodium (Colace -) 100 mg PO TID [facility] Last Admin: 03/13/20 15:36 Dose: Not Given Documented by: Montelukast Sodium (Singulair -) 10 mg PO [facility] Last Admin: 03/12/20 23:05 Dose: 10 mg Documented by: Nicotine (Nicoderm Patch -) 14 mg TD DAILY [facility] Last Admin: 03/13/20 12:51 Dose: 14 mg Documented by: Valsartan (Diovan -) 80 mg PO DAILY [facility] Last Admin: 03/13/20 09:13 Dose: 80 mg Documented by: - Objective Vital Signs: Vital Signs Temperature 97.2 F L 03/13/20 14:00 Pulse Rate 74 03/13/20 18:24 Respiratory Rate 18 03/13/20 18:24 Blood Pressure 121/51 L 03/13/20 14:00 O2 Sat by Pulse Oximetry (%) 95 03/13/20 16:08 Constitutional: Yes: Calm Eyes: Yes: WNL HENT: Yes: WNL Neck: Yes: WNL Cardiovascular: Yes: S1, S2 Respiratory: Yes: Regular Gastrointestinal: Yes: Soft Labs: CBC, BMP 03/12/20 13:23 03/13/20 05:35 Assessment/Plan LLE pain/swelling; hx DVT (on apixaban) COPD; multiple lung nodules Long-term cigarette smoker. Acute/chronic CHF (pt gives hx of "weak heart"); ?old anterior infarct by EKG. ECHO: normal LVEF; abnormal diastolic compliance; mild-moderate AR. HTN HLD elevated TNI: demand ischemia; stress MIBI this admission negative for ischemia. hyponatremia COVID not detected. Plan: Stress Lexiscan MIBI: no myocardial ischemia BP well-controlled now on amlodipine and valsartan. F/u TSH. Continue nicotine patch. On apixaban for DVT. 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 CC time spent: 35 minutes.
[2020-03-13] MEDS: ATORVASTATIN CA 80 MG TABLET (FP) PO SCH (22:02)
[2020-03-13] MEDS: MONTELUKAST NA 10 MG TABLET PO SCH (22:02)
[2020-03-14] MEDS: DOCUSATE SODIUM 100 MG CAPSULE (FP) PO SCH ×2 (05:28→13:14)
[2020-03-14 06:23] VITALS: TEMP 98.6
[2020-03-14] MEDS ORDERED: PT OWN MED DRAWER 7, Y5N ONE (09:26)
[2020-03-14] MEDS: APIXABAN 5 MG TABLET PO SCH (09:32)
[2020-03-14] MEDS: BUDESONIDE/FORMETEROL FUMARATE 80/4.5 mcg INHALER IH SCH (09:32)
[2020-03-14] MEDS: VALSARTAN 80 MG TABLET (UD) PO SCH (09:32)
[2020-03-14] MEDS: amLODIPine BESYLATE 10 MG TABLET (FP) PO SCH (09:32)
[2020-03-14] MEDS: NICOTINE 14 MG/24 HOURS TOPICAL PATCH TD SCH (09:32)
--- NOTE | 2020-03-14 11:07 | PN ---
Progress Note, Physician Chief Complaint: Pt A&Ox3; no chest pain or duyspnea; wants to eat breakfast (held due to stress MIBI). History of Present Illness: The patient is a 69 year old female with a significant past medical history of asthma, LLE angioplasty, HTN, HLD who presents to the ED for evaluation of hypoxia that began today. She was sent from her PCPs office who discovered the hypoxia when she was in the office for left lower extremity edema that began three weeks ago. Her O2 sat was reportedly 80%. Her PCP administered 150mg of Lovenox, performed and EKG and sent the pt to the ED. The patient denies fever, chills, sob, CP. She denies dizziness, headache, focal weakness/numbness, abd pain, urinary sxs. Surgical Hx: appendectomy, bilateral knee arthroscopy Social Hx: Patient reports smoking 4-5 cigarettes per day for 50 years. Allergies: NKDA, tomatoes PCP: Timothy Bolivar - Current Medication List Current Medications: Active Medications Amlodipine Besylate (Norvasc -) 10 mg PO DAILY [facility] Last Admin: 03/14/20 09:32 Dose: 10 mg Documented by: Apixaban (Eliquis -) 5 mg PO BID [facility] Last Admin: 03/14/20 09:32 Dose: 5 mg Documented by: Atorvastatin Calcium (Lipitor -) 80 mg PO [facility] Last Admin: 03/13/20 22:02 Dose: 80 mg Documented by: Budesonide/Formoterol Fumarate (Symbicort 80/4.5mcg -) 2 puff IH BID [facility] Last Admin: 03/14/20 09:32 Dose: 2 puff Documented by: Docusate Sodium (Colace -) 100 mg PO TID [facility] Last Admin: 03/14/20 05:28 Dose: Not Given Documented by: Montelukast Sodium (Singulair -) 10 mg PO HS [facility] Last Admin: 03/13/20 22:02 Dose: 10 mg Documented by: Nicotine (Nicoderm Patch -) 14 mg TD DAILY [facility] Last Admin: 03/14/20 09:32 Dose: 14 mg Documented by: Valsartan (Diovan -) 80 mg PO DAILY [facility] Last Admin: 03/14/20 09:32 Dose: 80 mg Documented by: - Objective Vital Signs: Vital Signs Temperature 98.6 F 03/14/20 06:00 Pulse Rate 73 03/14/20 08:21 Respiratory Rate 21 H 03/14/20 09:00 Blood Pressure 142/45 L 03/14/20 08:21 O2 Sat by Pulse Oximetry (%) 100 03/14/20 09:00 Eyes: Yes: WNL, Conjunctiva Clear, EOM Intact HENT: Yes: WNL, Atraumatic, Normocephalic Neck: Yes: WNL, Supple, Trachea Midline Cardiovascular: Yes: WNL, Regular Rate and Rhythm Respiratory: Yes: WNL, Regular, CTA Bilaterally Gastrointestinal: Yes: WNL, Normal Bowel Sounds Genitourinary: Yes: WNL Musculoskeletal: Yes: WNL Extremities: Yes: WNL Edema: No Integumentary: Yes: WNL Neurological: Yes: WNL, Alert, Oriented ...Motor Strength: WNL Psychiatric: Yes: WNL Labs: CBC, BMP 03/12/20 13:23 03/13/20 05:35 Problem List - Problems (1) Elevated troponin Code(s): R79.89 - OTHER SPECIFIED ABNORMAL FINDINGS OF BLOOD CHEMISTRY (2) Heart failure Code(s): I50.9 - HEART FAILURE, UNSPECIFIED Qualifiers: Heart failure type: unspecified Heart failure chronicity: unspecified Qualified Code(s): I50.9 - Heart failure, unspecified (3) Hypoxia Code(s): R09.02 - HYPOXEMIA Assessment/Plan LLE pain/swelling; hx DVT (on apixaban) COPD; multiple lung nodules Long-term cigarette smoker. Acute/chronic CHF (pt gives hx of "weak heart"); ?old anterior infarct by EKG. ECHO: normal LVEF; abnormal diastolic compliance; mild-moderate AR. HTN HLD elevated TNI: demand ischemia; stress MIBI this admission negative for ischemia. hyponatremia COVID not detected. Plan: Stress Lexiscan MIBI: no myocardial ischemia BP well-controlled now on amlodipine and valsartan. F/u TSH. Continue nicotine patch. On apixaban for DVT. 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 CC time spent: 35 minutes.
--- NOTE | 2020-03-14 13:12 | PN ---
Progress Note, Physician History of Present Illness: Pt seen and examined at bedside. She is awake and alert. She denies shortness of breath. - Current Medication List Current Medications: Active Medications Amlodipine Besylate (Norvasc -) 10 mg PO DAILY [facility] Last Admin: 03/14/20 09:32 Dose: 10 mg Documented by: Apixaban (Eliquis -) 5 mg PO BID [facility] Last Admin: 03/14/20 09:32 Dose: 5 mg Documented by: Atorvastatin Calcium (Lipitor -) 80 mg PO [facility] Last Admin: 03/13/20 22:02 Dose: 80 mg Documented by: Budesonide/Formoterol Fumarate (Symbicort 80/4.5mcg -) 2 puff IH BID [facility] Last Admin: 03/14/20 09:32 Dose: 2 puff Documented by: Docusate Sodium (Colace -) 100 mg PO TID [facility] Last Admin: 03/14/20 05:28 Dose: Not Given Documented by: Montelukast Sodium (Singulair -) 10 mg PO [facility] Last Admin: 03/13/20 22:02 Dose: 10 mg Documented by: Nicotine (Nicoderm Patch -) 14 mg TD DAILY [facility] Last Admin: 03/14/20 09:32 Dose: 14 mg Documented by: Valsartan (Diovan -) 80 mg PO DAILY [facility] Last Admin: 03/14/20 09:32 Dose: 80 mg Documented by: - Objective Vital Signs: Vital Signs Temperature 98.6 F 03/14/20 06:00 Pulse Rate 73 03/14/20 08:21 Respiratory Rate 21 H 03/14/20 09:00 Blood Pressure 142/45 L 03/14/20 08:21 O2 Sat by Pulse Oximetry (%) 100 03/14/20 09:00 Constitutional: Yes: Calm Eyes: Yes: Conjunctiva Clear HENT: Yes: Atraumatic Neck: Yes: Supple Cardiovascular: Yes: S1, S2 Respiratory: Yes: CTA Bilaterally Gastrointestinal: Yes: Soft Genitourinary: Yes: WNL Musculoskeletal: Yes: WNL Neurological: Yes: Oriented Psychiatric: Yes: Oriented Labs: CBC, BMP 03/12/20 13:23 03/13/20 05:35 Problem List - Problems (1) Hyponatremia Code(s): E87.1 - HYPO-OSMOLALITY AND HYPONATREMIA (2) Heart failure Code(s): I50.9 - HEART FAILURE, UNSPECIFIED Qualifiers: Heart failure type: unspecified Heart failure chronicity: unspecified Qualified Code(s): I50.9 - Heart failure, unspecified Assessment/Plan Current Medications Generic Name Dose Route Start Last Admin Trade Name Freq PRN Reason Stop Dose Admin Amlodipine Besylate 10 mg 03/10/20 10:00 03/13/20 09:13 Norvasc - PO 10 mg DAILY [facility] Administration Apixaban 5 mg 03/05/20 22:45 03/13/20 09:13 Eliquis - PO 5 mg BID [facility] Administration Atorvastatin Calcium 80 mg 03/06/20 22:00 03/12/20 23:05 Lipitor - PO 80 mg HS [facility] Administration Budesonide/Formoterol Fumarate 2 puff 03/06/20 10:00 03/13/20 09:13 Symbicort 80/4.5mcg - IH 2 puff BID [facility] Administration Docusate Sodium 100 mg 03/10/20 23:00 03/13/20 05:06 Colace - PO Not Given TID [facility] Montelukast Sodium 10 mg 03/06/20 22:00 03/12/20 23:05 Singulair - PO 10 mg HS [facility] Administration Nicotine 14 mg 03/06/20 13:30 03/13/20 12:51 Nicoderm Patch - TD 14 mg DAILY [facility] Administration Valsartan 80 mg 03/10/20 14:00 03/13/20 09:13 Diovan - PO 80 mg DAILY [facility] Administration Impression 1. hyponatremia 2. chf 3. asthma 4. htn 5. smoker 6. hld Plan - volume status stable - 2 gram sodium diet with restriction - she needs outpt workup and follow up - she did not give urine for urine studies - age appropriate cancer screening - restrict free water
[2020-03-14 14:01] VITALS: BP 126/55; PULSE 74
--- NOTE | 2020-03-14 14:03 | PN ---
Progress Note (short form) - Note Progress Note: PULMONARY States breathing continues to improve. Awaiting home O2. Vital Signs Period Temp Pulse Resp BP Sys/[place] Pulse Ox Last 24 Hr 98.1 F-98.6 F 65-97 18-22 116-142/45-55 94-100 Gen: NAD at rest Heart: RRR Lung: decreased breath sounds at the bases Abd: soft, nontender Ext: less edema CBC, BMP 03/12/20 13:23 03/13/20 05:35 Active Medications Amlodipine Besylate (Norvasc -) 10 mg PO DAILY [facility] Last Admin: 03/14/20 09:32 Dose: 10 mg Documented by: Apixaban (Eliquis -) 5 mg PO BID [facility] Last Admin: 03/14/20 09:32 Dose: 5 mg Documented by: Atorvastatin Calcium (Lipitor -) 80 mg PO HS [facility] Last Admin: 03/13/20 22:02 Dose: 80 mg Documented by: Budesonide/Formoterol Fumarate (Symbicort 80/4.5mcg -) 2 puff IH BID [facility] Last Admin: 03/14/20 09:32 Dose: 2 puff Documented by: Docusate Sodium (Colace -) 100 mg PO TID [facility] Last Admin: 03/14/20 13:14 Dose: Not Given Documented by: Montelukast Sodium (Singulair -) 10 mg PO HS [facility] Last Admin: 03/13/20 22:02 Dose: 10 mg Documented by: Nicotine (Nicoderm Patch -) 14 mg TD DAILY [facility] Last Admin: 03/14/20 09:32 Dose: 14 mg Documented by: Valsartan (Diovan -) 80 mg PO DAILY [facility] Last Admin: 03/14/20 09:32 Dose: 80 mg Documented by: A/P Acute on Chronic Diastolic Heart Failure +Troponins likely Demand Ischemia Hyponatremia HTN Hyperlipidemia PAD Asthma/Likely COPD Smoker - continue lasix - monitor urine output, creatinine - daily weights - monitor lytes with diuresis - will need home O2 - inhaled bronchodilators - smoking cessation discussed - DVT prophylaxis
== END 2020-03-14 18:00 | disposition home health service (06) | DRG 291 ==
LOC: JER 11:07 → JERBED 17:44 → JICU 03-06 05:56
PROVIDERS: ADMIT Internal Medicine; ATTEND Internal Medicine
DX: I11.0 Hypertensive heart disease with heart failure (principal); J96.01 Acute respiratory failure with hypoxia; E87.1 Hypo-osmolality and hyponatremia; I24.8 Other forms of acute ischemic heart disease; J44.9 Chronic obstructive pulmonary disease, unspecified; I50.33 Acute on chronic diastolic (congestive) heart failure; E78.5 Hyperlipidemia, unspecified; I73.9 Peripheral vascular disease, unspecified; R79.89 Other specified abnormal findings of blood chemistry; F17.210 Nicotine dependence, cigarettes, uncomplicated; Z86.718 Personal history of other venous thrombosis and embolism
CPT/HCPCS: 36415; 71045-TC-FY; 71275-TC; 78452-TC; 80048; 80053; 80061; 82436; 82550; 82553; 82962; 83721; 83735; 83880; 83930; 83935; 84133; 84300; 84443; 84484; 85025; 85730; 93005; 93010; 93017; 93306-TC; 93971-TC; 94761; 97116-GP; 97161-GP; 99285-25; A9502; J2785; Q9967; U0003

== ENCOUNTER 2020-11-23 22:28 | Inpatient (IN) | payer OTHER ==
[2020-11-23] MEDS ORDERED: ACETAMINOPHEN 325 MG TABLET (FP) PO ONE (23:27)
[2020-11-23 23:41] LABS: BASO % 1.4 % (0-2.0); EOS % 1.2 % (0-4.5); HEMATOCRIT 38.4 % (32.4-45.2); HEMOGLOBIN 12.7 GM/dL (10.7-15.3); LYMPH % 17.8 % (8-40); MCH 28.6 pg (25.7-33.7); MCHC 33.1 g/dl (32.0-36.0); MEAN CELL VOLUME 86.3 fl (80-96); MEAN PLT VOLUME 6.3 fl (7.5-11.1); MONO % 7.5 % (3.8-10.2); NEUT % 72.1 % (42.8-82.8); PLATELET COUNT 281 K/MM3 (134-434); RBC 4.45 M/mm3 (3.60-5.2); RDW 15.6 % (11.6-15.6); WHITE BLOOD COUNT 10.2 K/mm3 (4.0-10.0)
[2020-11-23 23:48] LABS: INR 0.97 (0.83-1.09); PROTHROMBIN TIME (PATIENT) 11.7 SEC (9.7-13.0)
[2020-11-23 23:51] LABS: ACTIVATED PTT 34.1 SECONDS (25.2-36.5)
[2020-11-23 23:59] LABS: CHLORIDE 79 mmol/L (98-107)
[2020-11-24 00:01] LABS: ALBUMIN 3.7 g/dl (3.4-5.0); BLOOD UREA NITROGEN 8.6 mg/dL (7-18); CALCIUM 8.7 mg/dL (8.5-10.1); CO2 27 mmol/L (21-32); GLUCOSE,RANDOM 81 mg/dL (74-106)
[2020-11-24 00:05] LABS: CREATININE 0.6 mg/dL (0.55-1.3); SGOT/AST 49 U/L (15-37); SGPT/ALT 32 U/L (13-61)
[2020-11-24 00:07] LABS: BILIRUBIN,TOTAL 0.5 mg/dL (0.2-1); TOT PROT 7.1 g/dl (6.4-8.2)
[2020-11-24 00:08] LABS: ALK PHOS 119 U/L (45-117)
[2020-11-24] MEDS ORDERED: ACETAMINOPHEN 325 MG TABLET (FP) ONE (00:16)
[2020-11-24 00:39] LABS: ANION GAP 9 MMOL/L (8-16); SODIUM 116 mmol/L (136-145)
[2020-11-24 01:55] LABS: CHLORIDE 80 mmol/L (98-107)
[2020-11-24 01:56] LABS: CALCIUM 8.6 mg/dL (8.5-10.1)
[2020-11-24 01:57] LABS: BLOOD UREA NITROGEN 9.4 mg/dL (7-18); CO2 28 mmol/L (21-32)
[2020-11-24 02:51] LABS: ANION GAP 8 MMOL/L (8-16); CREATININE 0.6 mg/dL (0.55-1.3); GLUCOSE,RANDOM 81 mg/dL (74-106); SODIUM 116 mmol/L (136-145)
[2020-11-24] MEDS ORDERED: SODIUM CHLORIDE 0.9% 500 ML INFUS.BAG IV ONE (04:15)
[2020-11-24 06:03] LABS: EPI CELLS 4 /uL (0-25.1); HYALINE CASTS 0 /uL (0-3.1); URINE APPEARANCE CLEAR; URINE BACTERIA 206 /uL (0-1359); URINE BILIRUBIN NEGATIVE (NEGATIVE); URINE COLOR YELLOW; URINE GLUCOSE (UA) NEGATIVE (NEGATIVE); URINE KETONE NEGATIVE (NEGATIVE); URINE LEUK ESTERASE 2+ (NEGATIVE); URINE NITRITE NEGATIVE (NEGATIVE); URINE PROTEIN NEGATIVE (NEGATIVE); URINE RBC 4 /uL (0-23.9); URINE UROBILINOGEN 0.2 mg/dL (0.2-1.0); URINE WBC 134 /uL (0-25.8)
[2020-11-24] MEDS ORDERED: ALBUTEROL SO4 HFA INHALER IH ONE ×2 (06:39→06:40)
[2020-11-24] MEDS ORDERED: FUROSEMIDE 40 MG TABLET (FP) ONE (09:45)
[2020-11-24] MEDS ORDERED: FUROSEMIDE 20 MG TABLET (FP) PO SCH ×2 (10:00→14:00)
[2020-11-24] MEDS ORDERED: amLODIPine BESYLATE 5 MG TABLET (FP) ONE (10:01)
[2020-11-24] MEDS ORDERED: APIXABAN 5 MG TABLET ONE (10:01)
[2020-11-24] MEDS: APIXABAN 5 MG TABLET PO SCH ×2 (10:21→22:45)
[2020-11-24] MEDS: VALSARTAN 40 MG TABLET PO SCH (10:21)
[2020-11-24] MEDS: amLODIPine BESYLATE 10 MG TABLET (FP) PO SCH (10:22)
[2020-11-24] MEDS: NICOTINE 14 MG/24 HOURS TOPICAL PATCH TD SCH (10:22)
[2020-11-24] MEDS: BUDESONIDE/FORMETEROL FUMARATE 80/4.5 mcg INHALER IH SCH ×2 (10:22→22:49)
[2020-11-24] MEDS ORDERED: SODIUM CHLORIDE 1 GM TABLET PO SCH (11:30)
[2020-11-24 13:43] LABS: CALCIUM 8.9 mg/dL (8.5-10.1)
[2020-11-24 13:44] LABS: BLOOD UREA NITROGEN 10.3 mg/dL (7-18)
[2020-11-24 13:46] LABS: CREATININE 0.7 mg/dL (0.55-1.3); URIC ACID 5.2 mg/dL (2.6-7.2)
[2020-11-24] MEDS: DOCUSATE SODIUM 100 MG CAPSULE (FP) PO SCH ×2 (14:16→22:45)
[2020-11-24] MEDS: ATORVASTATIN CA 80 MG TABLET (FP) PO SCH (22:45)
[2020-11-24] MEDS: MONTELUKAST NA 10 MG TABLET PO SCH (22:45)
[2020-11-25] MEDS: DOCUSATE SODIUM 100 MG CAPSULE (FP) PO SCH ×3 (06:49→21:53)
[2020-11-25 08:20] LABS: BASO % 0.6 % (0-2.0); EOS % 1.4 % (0-4.5); HEMATOCRIT 38.1 % (32.4-45.2); HEMOGLOBIN 12.7 GM/dL (10.7-15.3); MCH 28.9 pg (25.7-33.7); MCHC 33.3 g/dl (32.0-36.0); MEAN CELL VOLUME 86.8 fl (80-96); MEAN PLT VOLUME 6.9 fl (7.5-11.1); MONO % 8.7 % (3.8-10.2); NEUT % 72.3 % (42.8-82.8); PLATELET COUNT 277 K/MM3 (134-434); RBC 4.39 M/mm3 (3.60-5.2); RDW 15.6 % (11.6-15.6)
[2020-11-25 09:11] LABS: ALBUMIN 3.4 g/dl (3.4-5.0); BLOOD UREA NITROGEN 9.7 mg/dL (7-18); CALCIUM 9.1 mg/dL (8.5-10.1)
[2020-11-25 09:15] LABS: CREATININE 0.7 mg/dL (0.55-1.3)
[2020-11-25 09:16] LABS: BILIRUBIN,TOTAL 0.4 mg/dL (0.2-1)
[2020-11-25 09:18] LABS: TOT PROT 6.2 g/dl (6.4-8.2)
[2020-11-25] MEDS: APIXABAN 5 MG TABLET PO SCH ×2 (09:52→21:53)
[2020-11-25] MEDS: amLODIPine BESYLATE 10 MG TABLET (FP) PO SCH (09:52)
[2020-11-25] MEDS: NICOTINE 14 MG/24 HOURS TOPICAL PATCH TD SCH (09:52)
[2020-11-25] MEDS: VALSARTAN 40 MG TABLET PO SCH (09:52)
[2020-11-25] MEDS: BUDESONIDE/FORMETEROL FUMARATE 80/4.5 mcg INHALER IH SCH ×2 (09:53→21:54)
[2020-11-25] MEDS ORDERED: FUROSEMIDE 20 MG TABLET (FP) PO SCH (10:00)
[2020-11-25] MEDS: FUROSEMIDE 20 MG TABLET (FP) PO SCH (13:59)
[2020-11-25] MEDS: MONTELUKAST NA 10 MG TABLET PO SCH (21:53)
[2020-11-25] MEDS: ATORVASTATIN CA 80 MG TABLET (FP) PO SCH (21:53)
[2020-11-26] MEDS: FUROSEMIDE 20 MG TABLET (FP) PO SCH ×2 (06:33→13:46)
[2020-11-26] MEDS: DOCUSATE SODIUM 100 MG CAPSULE (FP) PO SCH ×3 (06:33→21:43)
[2020-11-26 07:26] LABS: BASO % 0.6 % (0-2.0); EOS % 1.6 % (0-4.5); HEMATOCRIT 37.8 % (32.4-45.2); HEMOGLOBIN 12.7 GM/dL (10.7-15.3); LYMPH % 19.2 % (8-40); MCH 29.2 pg (25.7-33.7); MCHC 33.5 g/dl (32.0-36.0); MEAN CELL VOLUME 87.3 fl (80-96); MEAN PLT VOLUME 6.6 fl (7.5-11.1); MONO % 8.1 % (3.8-10.2); NEUT % 70.5 % (42.8-82.8); PLATELET COUNT 267 K/MM3 (134-434); RBC 4.33 M/mm3 (3.60-5.2); RDW 15.5 % (11.6-15.6); WHITE BLOOD COUNT 8.4 K/mm3 (4.0-10.0)
[2020-11-26 07:38] LABS: CALCIUM 9.1 mg/dL (8.5-10.1)
[2020-11-26 07:40] LABS: ALBUMIN 3.4 g/dl (3.4-5.0); BLOOD UREA NITROGEN 12.9 mg/dL (7-18)
[2020-11-26 07:43] LABS: BILIRUBIN,TOTAL 0.4 mg/dL (0.2-1); CREATININE 0.7 mg/dL (0.55-1.3); TOT PROT 6.5 g/dl (6.4-8.2)
[2020-11-26] MEDS: NICOTINE 14 MG/24 HOURS TOPICAL PATCH TD SCH (10:20)
[2020-11-26] MEDS: amLODIPine BESYLATE 10 MG TABLET (FP) PO SCH (10:20)
[2020-11-26] MEDS: VALSARTAN 40 MG TABLET PO SCH (10:20)
[2020-11-26] MEDS: APIXABAN 5 MG TABLET PO SCH ×2 (10:20→21:43)
[2020-11-26] MEDS: BUDESONIDE/FORMETEROL FUMARATE 80/4.5 mcg INHALER IH SCH ×2 (10:21→21:43)
[2020-11-26] MEDS ORDERED: ATORVASTATIN CA 40 MG TABLET (FP) ONE (21:29)
[2020-11-26] MEDS: ATORVASTATIN CA 80 MG TABLET (FP) PO SCH (21:43)
[2020-11-26] MEDS: MONTELUKAST NA 10 MG TABLET PO SCH (21:43)
[2020-11-27] MEDS: ACETAMINOPHEN 325 MG TABLET (FP) PO PRN ×2 (00:35→21:31)
[2020-11-27] MEDS: FUROSEMIDE 20 MG TABLET (FP) PO SCH ×3 (05:32→13:09)
[2020-11-27] MEDS: DOCUSATE SODIUM 100 MG CAPSULE (FP) PO SCH ×4 (05:32→21:31)
[2020-11-27 07:42] LABS: CALCIUM 8.8 mg/dL (8.5-10.1)
[2020-11-27 07:43] LABS: ALBUMIN 3.4 g/dl (3.4-5.0); BLOOD UREA NITROGEN 16.6 mg/dL (7-18)
[2020-11-27 07:46] LABS: CREATININE 0.8 mg/dL (0.55-1.3)
[2020-11-27 07:48] LABS: BILIRUBIN,TOTAL 0.3 mg/dL (0.2-1)
[2020-11-27 07:49] LABS: TOT PROT 6.1 g/dl (6.4-8.2)
[2020-11-27] MEDS: NICOTINE 14 MG/24 HOURS TOPICAL PATCH TD SCH (09:09)
[2020-11-27] MEDS: APIXABAN 5 MG TABLET PO SCH (09:10)
[2020-11-27] MEDS: amLODIPine BESYLATE 10 MG TABLET (FP) PO SCH (09:10)
[2020-11-27] MEDS: BUDESONIDE/FORMETEROL FUMARATE 80/4.5 mcg INHALER IH SCH ×2 (09:10→21:31)
[2020-11-27] MEDS: VALSARTAN 40 MG TABLET PO SCH (09:10)
[2020-11-27 14:47] LABS: N-TERMINAL BNP 210.6 pg/ml (5-125)
[2020-11-27] MEDS ORDERED: HEPARIN NA (PORCINE) 5,000 UNITS/ML 1ML VIAL IVPUSH PRN ×2 (18:10)
[2020-11-27] MEDS: ATORVASTATIN CA 80 MG TABLET (FP) PO SCH (21:31)
[2020-11-27] MEDS: MONTELUKAST NA 10 MG TABLET PO SCH (21:31)
[2020-11-27 22:06] LABS: INR 1.06 (0.83-1.09); PROTHROMBIN TIME (PATIENT) 12.8 SEC (9.7-13.0)
[2020-11-27 22:08] LABS: ACTIVATED PTT 35.4 SECONDS (25.2-36.5)
[2020-11-27] MEDS: HEPARIN INFUSION - 25,000 UNITS/500 ML INFUS.BAG IVPB SCH (22:18)
[2020-11-28] MEDS: FUROSEMIDE 20 MG TABLET (FP) PO SCH ×2 (05:31→15:09)
[2020-11-28] MEDS: DOCUSATE SODIUM 100 MG CAPSULE (FP) PO SCH ×4 (05:31→22:00)
[2020-11-28] MEDS: amLODIPine BESYLATE 10 MG TABLET (FP) PO SCH (09:43)
[2020-11-28] MEDS: NICOTINE 14 MG/24 HOURS TOPICAL PATCH TD SCH (09:43)
[2020-11-28] MEDS: VALSARTAN 40 MG TABLET PO SCH (09:44)
[2020-11-28] MEDS: BUDESONIDE/FORMETEROL FUMARATE 80/4.5 mcg INHALER IH SCH ×2 (09:44→21:56)
[2020-11-28] MEDS: HEPARIN INFUSION - 25,000 UNITS/500 ML INFUS.BAG IVPB SCH (16:00)
[2020-11-28 20:26] VITALS: BMI 30.2
[2020-11-28] MEDS: ACETAMINOPHEN 325 MG TABLET (FP) PO PRN (20:46)
[2020-11-28] MEDS: ATORVASTATIN CA 80 MG TABLET (FP) PO SCH (21:57)
[2020-11-28] MEDS: MONTELUKAST NA 10 MG TABLET PO SCH (21:57)
[2020-11-29] MEDS ORDERED: ACETAMINOPHEN INJECTION 100 ML IVPB ONE (06:30)
[2020-11-29] MEDS ORDERED: DEXMEDETOMIDINE HCL 200 MCG/2 ML IVPB ONE (06:30)
[2020-11-29] MEDS: DOCUSATE SODIUM 100 MG CAPSULE (FP) PO SCH ×3 (06:52→22:53)
[2020-11-29] MEDS: FUROSEMIDE 20 MG TABLET (FP) PO SCH ×2 (06:52→13:16)
[2020-11-29 07:45] LABS: HEMATOCRIT 36.7 % (32.4-45.2); HEMOGLOBIN 12.1 GM/dL (10.7-15.3); MEAN CELL VOLUME 87.8 fl (80-96); MEAN PLT VOLUME 6.8 fl (7.5-11.1); PLATELET COUNT 236 K/MM3 (134-434); RBC 4.18 M/mm3 (3.60-5.2); RDW 15.9 % (11.6-15.6); WHITE BLOOD COUNT 7.2 K/mm3 (4.0-10.0)
[2020-11-29] MEDS: VALSARTAN 40 MG TABLET PO SCH (09:48)
[2020-11-29] MEDS: NICOTINE 14 MG/24 HOURS TOPICAL PATCH TD SCH (09:48)
[2020-11-29] MEDS: amLODIPine BESYLATE 10 MG TABLET (FP) PO SCH (09:48)
[2020-11-29] MEDS: BUDESONIDE/FORMETEROL FUMARATE 80/4.5 mcg INHALER IH SCH ×2 (11:24→22:50)
[2020-11-29] MEDS ORDERED: INSULIN (LEVEMIR) 100 UNITS/ML UNITS SQ ONE (13:59)
[2020-11-29] MEDS ORDERED: LIDOCAINE 1%/EPI 1:100000 (50 ML MULTI DOSE VIAL) ONE ×2 (14:06→15:32)
[2020-11-29] MEDS ORDERED: BUPIVACAINE LIPOSOME/PF (EXPAREL) 266 MG/20 ML VIAL ONE (14:08)
[2020-11-29] MEDS ORDERED: THROMBIN (BOVINE) 5,000 UNIT VIAL TP ONE ×2 (14:28→15:15)
[2020-11-29] MEDS ORDERED: MIDAZOLAM HCL 2 MG/2 ML SINGLE DOSE VIAL ONE (14:58)
[2020-11-29] MEDS ORDERED: ROCURONIUM BROMIDE 50 MG/5 ML SYRINGE ONE ×2 (15:02→17:07)
[2020-11-29] MEDS ORDERED: fentaNYL CITRATE 250 MCG/5 ML VIAL ONE (15:08)
[2020-11-29] MEDS ORDERED: LIDOCAINE HCL/EPINEPHRINE/PF 10 ML VIAL NR ONE ×2 (15:13)
[2020-11-29] MEDS ORDERED: BACITRACIN 50,000 UNITS VIAL TP ONE (15:14)
[2020-11-29] MEDS ORDERED: ceFAZolin SODIUM 1 GM VIAL IVPB ONE (15:15)
[2020-11-29] MEDS ORDERED: BUPIVACAINE HCL/PF 0.5% (5 MG/ML) 30 ML VIAL IJ ONE (15:17)
[2020-11-29] MEDS ORDERED: GENTAMICIN SO4 80 MG/2 ML VIAL ONE (15:32)
[2020-11-29] MEDS ORDERED: THROMBIN (BOVINE) 20,000 UNIT VIAL TP ONE (15:32)
[2020-11-29] MEDS ORDERED: GENTAMICIN SO4 80 MG/2 ML VIAL IVPB ONE (15:39)
[2020-11-29] MEDS ORDERED: VANCOMYCIN 1,000 MG VIAL (RESTRICTED TO ID ONLY) IVPB ONE (15:45)
[2020-11-29] MEDS ORDERED: BUPIVACAINE LIPOSOME/PF (EXPAREL) 266 MG/20 ML VIAL NR ONE (16:11)
[2020-11-29] MEDS ORDERED: ceFAZolin SODIUM 1 GM VIAL ONE ×3 (17:53→21:26)
[2020-11-29] MEDS ORDERED: GLYCOPYRROLATE 0.2 MG/1 ML VIAL ONE ×2 (18:50→19:36)
[2020-11-29] MEDS ORDERED: NEOSTIGMINE METHYLSULFATE 0.5 MG/1 ML - 10 ML MDV ONE (18:51)
[2020-11-29] MEDS ORDERED: METOPROLOL TARTRATE 5 MG/5 ML VIAL ONE (19:37)
[2020-11-29] MEDS ORDERED: ONDANSETRON 4 MG/2 ML VIAL ONE (19:45)
[2020-11-29] MEDS ORDERED: PROMETHAZINE HCL 25 MG/1 ML VIAL IVPUSH PRN (19:47)
[2020-11-29] MEDS ORDERED: ONDANSETRON 4 MG/2 ML VIAL IVPUSH PRN (19:47)
[2020-11-29] MEDS ORDERED: LACTATED RINGERS SOLUTION 1,000 ML IV SCH (20:00)
[2020-11-29] MEDS: CEFAZOLIN 2 GM/D5W 2 GM/50 ML ML IVPB SCH (21:00)
[2020-11-29] MEDS: MONTELUKAST NA 10 MG TABLET PO SCH (22:51)
[2020-11-29] MEDS: ATORVASTATIN CA 80 MG TABLET (FP) PO SCH (22:51)
[2020-11-29] MEDS: oxyCODONE HCL 5 MG TABLET PO PRN (22:53)
[2020-11-29] MEDS: HEPARIN INFUSION - 25,000 UNITS/500 ML INFUS.BAG IVPB SCH (23:04)
[2020-11-29] MEDS: LACTATED RINGERS SOLUTION 1,000 ML IV SCH (23:04)
[2020-11-30] MEDS: CEFAZOLIN 2 GM/D5W 2 GM/50 ML ML IVPB SCH ×2 (03:33→10:04)
[2020-11-30] MEDS: oxyCODONE HCL 5 MG TABLET PO PRN ×4 (04:45→21:32)
[2020-11-30] MEDS: DOCUSATE SODIUM 100 MG CAPSULE (FP) PO SCH ×3 (05:57→21:37)
[2020-11-30] MEDS: FUROSEMIDE 20 MG TABLET (FP) PO SCH ×2 (05:57→15:12)
[2020-11-30] MEDS: LACTATED RINGERS SOLUTION 1,000 ML IV SCH (06:00)
[2020-11-30 07:06] LABS: HEMOGLOBIN 10.6 GM/dL (10.7-15.3); MCH 29.7 pg (25.7-33.7); MCHC 34.1 g/dl (32.0-36.0); MEAN CELL VOLUME 87.1 fl (80-96); MEAN PLT VOLUME 6.9 fl (7.5-11.1); PLATELET COUNT 242 K/MM3 (134-434); RBC 3.56 M/mm3 (3.60-5.2); RDW 15.7 % (11.6-15.6); WHITE BLOOD COUNT 9.1 K/mm3 (4.0-10.0)
[2020-11-30 07:29] LABS: BILIRUBIN,TOTAL 0.3 mg/dL (0.2-1)
[2020-11-30 07:30] LABS: ALBUMIN 3.2 g/dl (3.4-5.0)
[2020-11-30 07:31] LABS: CALCIUM 8.6 mg/dL (8.5-10.1)
[2020-11-30 07:32] LABS: CREATININE 0.9 mg/dL (0.55-1.3)
[2020-11-30] MEDS: VALSARTAN 40 MG TABLET PO SCH (10:05)
[2020-11-30] MEDS: BUDESONIDE/FORMETEROL FUMARATE 80/4.5 mcg INHALER IH SCH ×2 (10:05→21:35)
[2020-11-30] MEDS: amLODIPine BESYLATE 10 MG TABLET (FP) PO SCH (10:05)
[2020-11-30] MEDS: NICOTINE 14 MG/24 HOURS TOPICAL PATCH TD SCH (10:05)
[2020-11-30] MEDS: ACETAMINOPHEN 325 MG TABLET (FP) PO PRN ×2 (12:17→21:32)
[2020-11-30] MEDS: ATORVASTATIN CA 80 MG TABLET (FP) PO SCH (21:31)
[2020-11-30] MEDS: MONTELUKAST NA 10 MG TABLET PO SCH (21:31)
[2020-11-30] MEDS: HEPARIN INFUSION - 25,000 UNITS/500 ML INFUS.BAG IVPB SCH (23:41)
[2020-12-01] MEDS: oxyCODONE HCL 5 MG TABLET PO PRN ×3 (02:24→21:40)
[2020-12-01] MEDS: ACETAMINOPHEN 325 MG TABLET (FP) PO PRN ×2 (02:33→08:58)
[2020-12-01] MEDS: FUROSEMIDE 20 MG TABLET (FP) PO SCH (05:40)
[2020-12-01] MEDS: DOCUSATE SODIUM 100 MG CAPSULE (FP) PO SCH ×5 (05:40→21:58)
[2020-12-01 07:19] LABS: INR 0.96 (0.83-1.09); PROTHROMBIN TIME (PATIENT) 11.8 SEC (9.7-13.0)
[2020-12-01 07:22] LABS: BASO % 0.3 % (0-2.0); EOS % 0.7 % (0-4.5); HEMATOCRIT 26.8 % (32.4-45.2); HEMOGLOBIN 9.2 GM/dL (10.7-15.3); LYMPH % 13.8 % (8-40); MCH 29.5 pg (25.7-33.7); MCHC 34.3 g/dl (32.0-36.0); MEAN PLT VOLUME 6.8 fl (7.5-11.1); MONO % 13.9 % (3.8-10.2); NEUT % 71.3 % (42.8-82.8); PLATELET COUNT 207 K/MM3 (134-434); RBC 3.12 M/mm3 (3.60-5.2); RDW 15.4 % (11.6-15.6); WHITE BLOOD COUNT 10.3 K/mm3 (4.0-10.0)
[2020-12-01 07:40] LABS: CALCIUM 8.4 mg/dL (8.5-10.1)
[2020-12-01 07:43] LABS: CREATININE 0.9 mg/dL (0.55-1.3)
[2020-12-01 07:45] LABS: BILIRUBIN,TOTAL 0.2 mg/dL (0.2-1); TOT PROT 5.6 g/dl (6.4-8.2)
[2020-12-01] MEDS: amLODIPine BESYLATE 10 MG TABLET (FP) PO SCH (09:00)
[2020-12-01] MEDS: VALSARTAN 40 MG TABLET PO SCH (09:00)
[2020-12-01] MEDS: NICOTINE 14 MG/24 HOURS TOPICAL PATCH TD SCH (09:00)
[2020-12-01] MEDS: BUDESONIDE/FORMETEROL FUMARATE 80/4.5 mcg INHALER IH SCH ×2 (09:00→21:39)
[2020-12-01] MEDS: ONDANSETRON 4 MG/2 ML VIAL IVPUSH PRN (10:09)
[2020-12-01] MEDS: APIXABAN 5 MG TABLET PO SCH ×2 (12:37→21:38)
[2020-12-01] MEDS ORDERED: ACETAMINOPHEN INJECTION 100 ML IVPB ONE (12:42)
[2020-12-01] MEDS: DEXTROSE 5%-0.45% SALINE 1,000 ML IV SCH (13:03)
[2020-12-01] MEDS: ACETAMINOPHEN 1000 MG/100 ML VIAL (NON FORMULARY) IVPB PRN ×2 (13:04→18:44)
[2020-12-01] MEDS: ATORVASTATIN CA 80 MG TABLET (FP) PO SCH (21:39)
[2020-12-01] MEDS: MONTELUKAST NA 10 MG TABLET PO SCH (21:39)
[2020-12-02] MEDS: ACETAMINOPHEN 1000 MG/100 ML VIAL (NON FORMULARY) IVPB PRN ×3 (04:01→21:23)
[2020-12-02] MEDS: DOCUSATE SODIUM 100 MG CAPSULE (FP) PO SCH ×3 (05:57→21:29)
[2020-12-02 07:16] LABS: HEMATOCRIT 25.9 % (32.4-45.2); HEMOGLOBIN 8.6 GM/dL (10.7-15.3); MCHC 33.3 g/dl (32.0-36.0); MEAN CELL VOLUME 87.1 fl (80-96); PLATELET COUNT 208 K/MM3 (134-434); RBC 2.98 M/mm3 (3.60-5.2); RDW 15.6 % (11.6-15.6); WHITE BLOOD COUNT 8.8 K/mm3 (4.0-10.0)
[2020-12-02] MEDS: oxyCODONE HCL 5 MG TABLET PO PRN (07:41)
[2020-12-02] MEDS: ONDANSETRON 4 MG/2 ML VIAL IVPUSH PRN (08:26)
[2020-12-02] MEDS: NICOTINE 14 MG/24 HOURS TOPICAL PATCH TD SCH (10:24)
[2020-12-02] MEDS: amLODIPine BESYLATE 10 MG TABLET (FP) PO SCH (10:24)
[2020-12-02] MEDS: APIXABAN 5 MG TABLET PO SCH ×2 (10:24→21:23)
[2020-12-02] MEDS: MULTIVITAMINS (DAILY MVI) TABLET (FP) PO SCH (10:24)
[2020-12-02] MEDS: VALSARTAN 40 MG TABLET PO SCH (10:24)
[2020-12-02] MEDS: BUDESONIDE/FORMETEROL FUMARATE 80/4.5 mcg INHALER IH SCH ×2 (10:24→21:25)
[2020-12-02] MEDS ORDERED: PT OWN MED DRAWER 7, Y5N ONE (11:51)
[2020-12-02] MEDS: DEXTROSE 5%-0.45% SALINE 1,000 ML IV SCH (12:05)
[2020-12-02] MEDS ORDERED: oxyCODONE HCL 5 MG TABLET PO ONE (16:45)
[2020-12-02] MEDS ORDERED: oxyCODONE HCL 5 MG TABLET PO PRN (18:27)
[2020-12-02] MEDS: MONTELUKAST NA 10 MG TABLET PO SCH (21:23)
[2020-12-02] MEDS: ATORVASTATIN CA 80 MG TABLET (FP) PO SCH (21:23)
[2020-12-03] MEDS: DOCUSATE SODIUM 100 MG CAPSULE (FP) PO SCH ×3 (05:32→21:19)
[2020-12-03 07:09] LABS: ALBUMIN 2.8 g/dl (3.4-5.0); BLOOD UREA NITROGEN 11.9 mg/dL (7-18)
[2020-12-03 07:12] LABS: CREATININE 0.6 mg/dL (0.55-1.3)
[2020-12-03 07:13] LABS: BILIRUBIN,TOTAL 0.3 mg/dL (0.2-1); TOT PROT 5.7 g/dl (6.4-8.2)
[2020-12-03 07:18] LABS: BASO % 0.7 % (0-2.0); EOS % 2.1 % (0-4.5); HEMATOCRIT 26.6 % (32.4-45.2); HEMOGLOBIN 8.9 GM/dL (10.7-15.3); LYMPH % 17.8 % (8-40); MCH 29.3 pg (25.7-33.7); MCHC 33.5 g/dl (32.0-36.0); MEAN CELL VOLUME 87.4 fl (80-96); MEAN PLT VOLUME 6.7 fl (7.5-11.1); MONO % 13.4 % (3.8-10.2); PLATELET COUNT 223 K/MM3 (134-434); RBC 3.04 M/mm3 (3.60-5.2); RDW 15.7 % (11.6-15.6); WHITE BLOOD COUNT 8.8 K/mm3 (4.0-10.0)
[2020-12-03] MEDS: ACETAMINOPHEN 500 MG TABLET (FP) PO SCH ×3 (08:15→17:04)
[2020-12-03] MEDS: amLODIPine BESYLATE 10 MG TABLET (FP) PO SCH (09:32)
[2020-12-03] MEDS: VALSARTAN 40 MG TABLET PO SCH (09:32)
[2020-12-03] MEDS: MULTIVITAMINS (DAILY MVI) TABLET (FP) PO SCH (09:32)
[2020-12-03] MEDS: APIXABAN 5 MG TABLET PO SCH ×2 (09:32→21:19)
[2020-12-03] MEDS: NICOTINE 14 MG/24 HOURS TOPICAL PATCH TD SCH (09:33)
[2020-12-03] MEDS: BUDESONIDE/FORMETEROL FUMARATE 80/4.5 mcg INHALER IH SCH ×2 (09:33→21:30)
[2020-12-03] MEDS: DEXTROSE 5%-0.45% SALINE 1,000 ML IV SCH (12:47)
[2020-12-03] MEDS: ATORVASTATIN CA 80 MG TABLET (FP) PO SCH (21:19)
[2020-12-03] MEDS: MONTELUKAST NA 10 MG TABLET PO SCH (21:19)
[2020-12-03] MEDS: MORPHINE SULFATE 2 MG/ML VIAL IVPUSH PRN (21:26)
[2020-12-04] MEDS: ACETAMINOPHEN 500 MG TABLET (FP) PO SCH ×4 (01:05→17:26)
[2020-12-04] MEDS: ONDANSETRON 4 MG/2 ML VIAL IVPUSH PRN (03:36)
[2020-12-04] MEDS: MORPHINE SULFATE 2 MG/ML VIAL IVPUSH PRN (03:37)
[2020-12-04] MEDS: DOCUSATE SODIUM 100 MG CAPSULE (FP) PO SCH ×3 (06:24→21:35)
[2020-12-04 06:48] LABS: BASO % 0.5 % (0-2.0); EOS % 0.5 % (0-4.5); HEMATOCRIT 27.6 % (32.4-45.2); LYMPH % 7.8 % (8-40); MCH 28.5 pg (25.7-33.7); MCHC 32.7 g/dl (32.0-36.0); MEAN CELL VOLUME 87.2 fl (80-96); MONO % 7.8 % (3.8-10.2); NEUT % 83.4 % (42.8-82.8); PLATELET COUNT 299 K/MM3 (134-434); RBC 3.16 M/mm3 (3.60-5.2); RDW 15.8 % (11.6-15.6); WHITE BLOOD COUNT 12.3 K/mm3 (4.0-10.0)
[2020-12-04 06:59] LABS: CALCIUM 9.3 mg/dL (8.5-10.1)
[2020-12-04 07:00] LABS: ALBUMIN 3.1 g/dl (3.4-5.0); BLOOD UREA NITROGEN 9.7 mg/dL (7-18)
[2020-12-04 07:03] LABS: CREATININE 0.6 mg/dL (0.55-1.3)
[2020-12-04 07:04] LABS: BILIRUBIN,TOTAL 0.3 mg/dL (0.2-1); TOT PROT 6.1 g/dl (6.4-8.2)
[2020-12-04] MEDS: NICOTINE 14 MG/24 HOURS TOPICAL PATCH TD SCH (09:35)
[2020-12-04] MEDS: VALSARTAN 40 MG TABLET PO SCH (09:36)
[2020-12-04] MEDS: PANTOPRAZOLE 40 MG TABLET PO SCH (09:36)
[2020-12-04] MEDS: amLODIPine BESYLATE 10 MG TABLET (FP) PO SCH (09:36)
[2020-12-04] MEDS: traMADol HCL 50 MG TABLET PO PRN (09:36)
[2020-12-04] MEDS: BUDESONIDE/FORMETEROL FUMARATE 80/4.5 mcg INHALER IH SCH ×2 (09:36→21:35)
[2020-12-04] MEDS: MULTIVITAMINS (DAILY MVI) TABLET (FP) PO SCH (09:37)
[2020-12-04] MEDS: ATORVASTATIN CA 80 MG TABLET (FP) PO SCH (21:35)
[2020-12-04] MEDS: MONTELUKAST NA 10 MG TABLET PO SCH (21:35)
[2020-12-05] MEDS: MORPHINE SULFATE 2 MG/ML VIAL IVPUSH PRN (02:33)
[2020-12-05] MEDS: traMADol HCL 50 MG TABLET PO PRN ×3 (02:41→20:10)
[2020-12-05] MEDS: DOCUSATE SODIUM 100 MG CAPSULE (FP) PO SCH ×3 (06:43→21:51)
[2020-12-05 06:57] LABS: EOS % 2.3 % (0-4.5); HEMATOCRIT 26.3 % (32.4-45.2); HEMOGLOBIN 8.8 GM/dL (10.7-15.3); LYMPH % 18.5 % (8-40); MCH 28.9 pg (25.7-33.7); MCHC 33.3 g/dl (32.0-36.0); MEAN CELL VOLUME 86.9 fl (80-96); MEAN PLT VOLUME 6.7 fl (7.5-11.1); MONO % 12.7 % (3.8-10.2); NEUT % 65.5 % (42.8-82.8); PLATELET COUNT 312 K/MM3 (134-434); RBC 3.03 M/mm3 (3.60-5.2); RDW 15.6 % (11.6-15.6); WHITE BLOOD COUNT 9.7 K/mm3 (4.0-10.0)
[2020-12-05 07:22] LABS: BLOOD UREA NITROGEN 9.2 mg/dL (7-18)
[2020-12-05 07:29] LABS: BILIRUBIN,TOTAL 0.3 mg/dL (0.2-1); CREATININE 0.5 mg/dL (0.55-1.3); TOT PROT 5.8 g/dl (6.4-8.2)
[2020-12-05] MEDS: amLODIPine BESYLATE 10 MG TABLET (FP) PO SCH (09:28)
[2020-12-05] MEDS: VALSARTAN 40 MG TABLET PO SCH (09:28)
[2020-12-05] MEDS: PANTOPRAZOLE 40 MG TABLET PO SCH (09:28)
[2020-12-05] MEDS: BUDESONIDE/FORMETEROL FUMARATE 80/4.5 mcg INHALER IH SCH ×2 (09:29→23:00)
[2020-12-05] MEDS: MULTIVITAMINS (DAILY MVI) TABLET (FP) PO SCH (09:29)
[2020-12-05] MEDS: FUROSEMIDE 20 MG TABLET (FP) PO SCH (09:29)
[2020-12-05] MEDS: NICOTINE 14 MG/24 HOURS TOPICAL PATCH TD SCH (09:30)
[2020-12-05] MEDS: ATORVASTATIN CA 80 MG TABLET (FP) PO SCH (21:51)
[2020-12-05] MEDS: MONTELUKAST NA 10 MG TABLET PO SCH (21:51)
[2020-12-05] MEDS: ACETAMINOPHEN 500 MG TABLET (FP) PO PRN (22:59)
[2020-12-06] MEDS: DOCUSATE SODIUM 100 MG CAPSULE (FP) PO SCH ×3 (06:00→21:30)
[2020-12-06] MEDS: traMADol HCL 50 MG TABLET PO PRN ×2 (06:53→21:30)
[2020-12-06] MEDS: ACETAMINOPHEN 500 MG TABLET (FP) PO PRN (08:47)
[2020-12-06] MEDS: MULTIVITAMINS (DAILY MVI) TABLET (FP) PO SCH (09:53)
[2020-12-06] MEDS: FUROSEMIDE 20 MG TABLET (FP) PO SCH (09:53)
[2020-12-06] MEDS: VALSARTAN 40 MG TABLET PO SCH (09:53)
[2020-12-06] MEDS: BUDESONIDE/FORMETEROL FUMARATE 80/4.5 mcg INHALER IH SCH ×2 (09:53→21:27)
[2020-12-06] MEDS: PANTOPRAZOLE 40 MG TABLET PO SCH (09:53)
[2020-12-06] MEDS: NICOTINE 14 MG/24 HOURS TOPICAL PATCH TD SCH (09:53)
[2020-12-06] MEDS: amLODIPine BESYLATE 10 MG TABLET (FP) PO SCH (09:53)
[2020-12-06] MEDS: APIXABAN 5 MG TABLET PO SCH (21:30)
[2020-12-06] MEDS: MONTELUKAST NA 10 MG TABLET PO SCH (21:30)
[2020-12-06] MEDS: ATORVASTATIN CA 80 MG TABLET (FP) PO SCH (21:31)
[2020-12-07] MEDS: DOCUSATE SODIUM 100 MG CAPSULE (FP) PO SCH ×3 (06:10→21:09)
[2020-12-07] MEDS ORDERED: VALSARTAN 80 MG TABLET PO SCH (07:16)
[2020-12-07 09:21] VITALS: BP 136/55; PULSE 94; TEMP 98.4
[2020-12-07] MEDS: NICOTINE 14 MG/24 HOURS TOPICAL PATCH TD SCH (09:21)
[2020-12-07] MEDS: MULTIVITAMINS (DAILY MVI) TABLET (FP) PO SCH (09:21)
[2020-12-07] MEDS: FUROSEMIDE 20 MG TABLET (FP) PO SCH (09:21)
[2020-12-07] MEDS: PANTOPRAZOLE 40 MG TABLET PO SCH (09:21)
[2020-12-07] MEDS: APIXABAN 5 MG TABLET PO SCH ×2 (09:21→21:09)
[2020-12-07] MEDS: amLODIPine BESYLATE 10 MG TABLET (FP) PO SCH (09:21)
[2020-12-07] MEDS: BUDESONIDE/FORMETEROL FUMARATE 80/4.5 mcg INHALER IH SCH (09:22)
[2020-12-07 10:08] LABS: SARS-CoV-2 NAA Not Detected (Not Detected)
[2020-12-07] MEDS: ACETAMINOPHEN 500 MG TABLET (FP) PO PRN (21:09)
[2020-12-07] MEDS: MONTELUKAST NA 10 MG TABLET PO SCH (21:09)
[2020-12-07] MEDS: ATORVASTATIN CA 80 MG TABLET (FP) PO SCH (21:09)
== END 2020-12-07 21:33 | DRG 454 ==
LOC: JER 22:28 → JERBED 11-24 01:24 → J4W 11-24 11:31
PROVIDERS: ADMIT Internal Medicine; ATTEND Internal Medicine
PROC: 0RG2071 Fusion of 2 or more Cervical Vertebral Joints with Autologous Tissue Substitute, Posterior Approach, Posterior Column, Open Approach (ICD-10-PCS; 2020-11-29)
PROC: 0RG2070 Fusion of 2 or more Cervical Vertebral Joints with Autologous Tissue Substitute, Anterior Approach, Anterior Column, Open Approach (ICD-10-PCS; 2020-11-29)
PROC: 01N10ZZ Release Cervical Nerve, Open Approach (ICD-10-PCS; 2020-11-29)
PROC: 00NW0ZZ Release Cervical Spinal Cord, Open Approach (ICD-10-PCS; 2020-11-29)
PROC: 0RB30ZZ Excision of Cervical Vertebral Disc, Open Approach (ICD-10-PCS; 2020-11-29)
PROC: 0JX70ZZ Transfer Back Subcutaneous Tissue and Fascia, Open Approach (ICD-10-PCS; 2020-11-29)
PROC: 0PS304Z Reposition Cervical Vertebra with Internal Fixation Device, Open Approach (ICD-10-PCS; 2020-11-29)
PROC: 00U20KZ Supplement Dura Mater with Nonautologous Tissue Substitute, Open Approach (ICD-10-PCS; 2020-11-29)
PROC: B01BZZZ Fluoroscopy of Spinal Cord (ICD-10-PCS; 2020-11-29)
PROC: 0RG10A0 Fusion of Cervical Vertebral Joint with Interbody Fusion Device, Anterior Approach, Anterior Column, Open Approach (ICD-10-PCS; principal; 2020-11-29 12:45)
DX: M50.01 Cervical disc disorder with myelopathy, high cervical region (principal); M47.12 Other spondylosis with myelopathy, cervical region; I50.30 Unspecified diastolic (congestive) heart failure; E87.1 Hypo-osmolality and hyponatremia; M48.8X2 Other specified spondylopathies, cervical region; I10 Essential (primary) hypertension; E78.5 Hyperlipidemia, unspecified; J44.9 Chronic obstructive pulmonary disease, unspecified; I11.0 Hypertensive heart disease with heart failure; W18.39XA Other fall on same level, initial encounter; R79.89 Other specified abnormal findings of blood chemistry; Z86.718 Personal history of other venous thrombosis and embolism; R41.82 Altered mental status, unspecified; R26.81 Unsteadiness on feet; M48.02 Spinal stenosis, cervical region; Y93.89 Activity, other specified; Y92.89 Other specified places as the place of occurrence of the external cause
CPT/HCPCS: 36415; 70450-TC; 71046-TC-FY; 72125-TC; 72128-TC; 72141-TC; 73562-TC-RT-FY; 76000-TC-FY; 80048; 80053; 80061; 80307; 81003; 82436; 82533; 82550; 82553; 82962; 83036; 83721; 83880; 83930; 83935; 84133; 84295; 84300; 84443; 84484; 84550; 85025; 85027; 85610; 85730; 86850; 86900; 86901; 87086; 93005; 93010; 93306-TC; 94760; 97116-GP; 97161-GP; 99285-25; C9803; J0131; J1644; U0003; U0005